=== PATIENT | female | born 1940 | race Caucasian/White ===

== ENCOUNTER 2019-04-08 02:55 | Outpatient (CLI) | payer MEDICARE, BC, SELFPAY ==
[2019-04-08 08:10] LABS: Anion Gap 9.8 mmol/L (3-11); BUN 16 mg/dL (7-18); CO2 27.2 mmol/L (21.0-32.0); CREATININE 0.66 mg/dL (0.55-1.02); Calcium 8.4 mg/dL (8.5-10.1); Chloride 103 mmol/L (98-107); Cholesterol 250 mg/dL (50-200); Glucose 96 mg/dL (70-100); HDL Cholesterol 63 mg/dL (40-60); LDL CHOLESTEROL 162 mg/dL (<100); Potassium 3.9 mmol/L (3.5-5.1); Sodium 140 mmol/L (136-145); Triglyceride 85 mg/dL (30-150)
== END 2019-04-08 03:15 ==
PROVIDERS: PCP Internal Medicine; Visit Provider Internal Medicine
DX: I10 Essential (primary) hypertension (principal)
CPT/HCPCS: 36415; 80048; 80061; 83721

== ENCOUNTER 2019-04-16 00:16 | Outpatient (CLI) | payer MEDICARE, BC, SELFPAY ==
--- NOTE | 2019-04-16 13:41 | DI.RAD_ITS ---
SYMPTOMS/DIAGNOSIS: OSTEOPENIA, M85.88 DEXA SCAN: Routine examination was performed. The lateral view of the spine shows no compression deformities. Evaluation of the left hip shows a total T score of - 2.1 and a Z score of -0.1. This is consistent with osteopenia and an increased fracture risk. This compares with a total T score of -1.9 from 2013. Evaluation of the lumbar spine shows a total T score of -2.1 and a Z score of 0.5. This is also consistent with osteopenia and an increased fracture risk. This compares with a total T score of -1.8 from 2013. IMPRESSION: Osteopenia in the lumbar spine and left hip.
== END 2019-04-16 00:36 ==
PROVIDERS: PCP Internal Medicine; Visit Provider Internal Medicine
DX: M85.88 Other specified disorders of bone density and structure, other site (principal)
CPT/HCPCS: 77080

== ENCOUNTER 2020-10-16 02:02 | Outpatient (CLI) | payer MEDICARE, BC, SELFPAY ==
--- NOTE | 2020-10-16 07:15 | DI.MAMMO_ITS ---
EXAM: MG MAMMO SCREENING CLINICAL HISTORY: screening, Z12.39 TECHNIQUE: Mammograms were interpreted according to the usual protocol including computer analysis w [employer] CAD system, tomosynthesis and C-view imaging. COMPARISON: FINDINGS: The breasts are heterogeneously dense. No dominant mass or clumped microcalcification is identified in either breast. The current examination is compared with previous examinations including March 2018 and there has been no gross interval change in appearance in comparison with the prior studies. IMPRESSION: No specific evidence of malignancy at this time. Routine screening examinations are suggested at yea rly intervals in this age group according to the ACS ACR guidelines. BI-RADS Category 1 - Negative Breast Density - Category C - Heterogeneously dense
== END 2020-10-16 02:22 ==
PROVIDERS: PCP Internal Medicine; Visit Provider Internal Medicine
DX: Z12.31 Encounter for screening mammogram for malignant neoplasm of breast (principal)
CPT/HCPCS: 77063; 77067

== ENCOUNTER 2020-10-16 04:12 | Outpatient (CLI) | payer MEDICARE, BC, SELFPAY ==
[2020-10-16 10:04] LABS: Anion Gap 6.5 mmol/L (3-11); BUN 20 mg/dL (7-18); CO2 27.5 mmol/L (21.0-32.0); CREATININE 0.61 mg/dL (0.55-1.02); Calcium 8.8 mg/dL (8.5-10.1); Calculated LDL 163 mg/dL (<100); Chloride 104 mmol/L (98-107); Cholesterol 256 mg/dL (<200); Glucose 116 mg/dL (74-106); HDL Cholesterol 71 mg/dL (40-60); Potassium 4.9 mmol/L (3.5-5.1); Sodium 138 mmol/L (136-145); Triglyceride 112 mg/dL (<150)
== END 2020-10-16 04:32 ==
PROVIDERS: PCP Internal Medicine; Visit Provider Internal Medicine
DX: I10 Essential (primary) hypertension (principal); E78.00 Pure hypercholesterolemia, unspecified
CPT/HCPCS: 36415; 80048; 80061

== ENCOUNTER 2021-03-18 02:18 | Outpatient (CLI) | payer MEDICARE, BC, SELFPAY ==
[2021-03-18 07:43] LABS: HCT 43.9 % (36.0-46.0); HGB 14.3 g/dL (11.2-15.7); MCH 31.4 pg (27.0-33.0); MCHC 32.6 % (32.0-36.0); MCV 96.5 fL (80-95); MPV 10.4 fL (8.0-11.0); Platelet Count 202 10^3/uL (130-400); RBC 4.55 10^6/uL (3.93-5.22); RDW 12.6 % (11.7-14.6); RDW-SD 45.3 fL; WBC 6.14 10^3/uL (4.4-10.8)
[2021-03-18 09:20] LABS: ALT 23 U/L (14-59); AST 18 U/L (15-37); Albumin 3.8 g/dL (3.4-5.0); Alkaline Phosphatase 85 U/L (46-116); Anion Gap 5.9 mmol/L (3-11); BUN 13 mg/dL (7-18); Bilirubin, Total 0.7 mg/dL (0.2-1.0); CO2 32.1 mmol/L (21.0-32.0); CREATININE 0.6 mg/dL (0.55-1.02); Calcium 8.6 mg/dL (8.5-10.1); Chloride 104 mmol/L (98-107); Glucose 94 mg/dL (74-106); Potassium 4.2 mmol/L (3.5-5.1); Sodium 142 mmol/L (136-145); Total Protein 7.1 g/dL (6.4-8.2)
== END 2021-03-18 02:19 | disposition home or self-care (01) ==
PROVIDERS: PCP Internal Medicine; Visit Provider Internal Medicine
DX: I10 Essential (primary) hypertension (principal); R73.01 Impaired fasting glucose; R19.5 Other fecal abnormalities
CPT/HCPCS: 36415; 80053; 85027

== ENCOUNTER 2021-04-30 06:23 | Day surgery (SDC) | payer MEDICARE, BC, SELFPAY ==
[2021-04-30 06:25] VITALS: BP 160/92; PULSE 75; RESP 16; TEMP 37; O2SAT 96
[2021-04-30] MEDS: Tropicam./Phenyleph. (1/2.5%) 5 ML BTL OS ×3 (06:42→06:49)
--- NOTE | 2021-04-30 07:06 | W.ANESPRE ---
General Info Date of Service Date Performed: 04/30/21 Height: 5 ft 1.5 in Weight: 55.3 kg Body Mass Index (BMI): 22.6 Surgical Procedure: Operation Date: 04/30/21 07:40 Proposed Procedures Side Surgeon p Cataract Extraction with IOL Implant Left Maxi Domínguez MD Meds Allergies and Home Medications Allergies Allergy/AdvReac Type Severity Reaction Status Date / Time sulfamethoxazole Allergy Unknown unknown Verified 04/30/21 06:37 [From Bactrim] trimethoprim [From Bactrim] Allergy Unknown unknown Verified 04/30/21 06:37 amlodipine AdvReac Intermediate shoulder Verified 04/30/21 06:37 pain, fatigue Home Medication Medication Instructions Recorded Glucosamine-Chondroitin 3X 1 ea PO DAILY 10/23/15 Premarin 1 g TOPICAL Weekly 10/23/15 calcium carbonate-vitamin D3 1 ea PO DAILY 10/23/15 multivitamin [Daily Multi-Vitamin] 1 ea PO DAILY 10/23/15 omega-3 fatty acids 1,000 mg 1,000 mg PO DAILY 04/09/19 capsule vit C 250 mg-vit E 90 mg-zinc 40 1 tab PO DAILY cap 04/09/19 mg-copper 1 [id number]-vsbeoj-gazvya capsule hydrochlorothiazide 12.5 mg capsule 12.5 mg PO DAILY #90 tab-cap 09/22/20 Current Visit Medications: Current Medications Generic Name Dose Route Start Last Admin Trade Name Freq PRN Reason Stop Dose Admin Acetaminophen 1,000 mg 04/30/21 06:00 Acetaminophen 500 Mg Tab PO Q4H PRN PRN Miscellaneous Medication 0 ml 04/30/21 06:00 Prednisolone 1%, Moxifloxacin 0.5%, Nepafenac 0.1% 5ml Btl OS DIRECTED ARNEL Miscellaneous Medication 0 ml 04/30/21 06:00 04/30/21 06:49 Tropicam./Phenyleph. 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 states just her tonsills were removed NOT adenoids Tobacco Smoking/Tobacco Use Status: Never Alcohol Alcohol Intake: current Alcohol intake frequency: a few times a week Alcohol type: wine Substance Use Substance use: Never Substance use type: does not use Vital Signs and Lab Results Vital Signs Most Recent Vital Signs in EMR: Most Recent Vital Signs Temp Pulse Resp BP Pulse Ox 37 C 75 16 160/92 H 96 04/30/21 06:25 04/30/21 06:25 04/30/21 06:25 04/30/21 06:25 04/30/21 06:25 Lab Results Blood Type / Crossmatch: No Data to Display Complete Blood Count: No Data to Display Complete Metabolic Panel: No Data to Display Liver Function Panel: No Data to Display Coagulation Panel: No Data to Display Cardiac Panel: No Data to Display Arterial Blood Gas: No Data to Display Venous Blood Gas: No Data to Display Pancreas Panel: No Data to Display Thyroid Panel: No Data to Display Infectious Disease: No Data to Display Blood Cultures: No Data to Display Toxicology Panel: No Data to Display Anesthesia Assessment and Plan Anesthesia History Personal History: No History of Anesthesia Complications Family History: No Family History of Anesthesia Complications Exercise Tolerance Exercise Tolerance: Metabolic Equivalents>4 Pertinent Negatives Pertinent Negatives: No Symptoms of GERD, No Major Cardiovascular Symptoms or Complaints, No Major Pulmonary Symptoms or Complaints and No History of CVA/TIA Cardiac & Pulmonary Exam Cardiac Exam: Normal S1/S2 Heart Sounds Pulmonary Exam: Clear Bilateral Breath Sounds Airway Exam Known Difficult Airway: No Mallampati Class: 3 Mouth Opening: Normal (> 3cm) Thyromental Distance: Greater than 3 cm Neck Range of Motion: Full ROM Neck Circumference: Normal Teeth Condition: Normal Dentition Airway Comments: Multiple caps and crowns ASA Classification ASA Score: ASA 2 Emergency Case?: No NPO Status NPO Status: NPO Clears >2 hours, Solids >8 hours Anesthesia Plan Resuscitation Status: Full Code Anesthesia Technique: MAC Anesthesia Airway Planned: Natural Airway Monitors Used: Standard Monitors
[2021-04-30 07:08] VITALS: BMI 22.6
[2021-04-30] MEDS: Lidocaine 1% Pres-Free 5 ML VIAL (07:28)
[2021-04-30] MEDS: Duovisc Viscoelastic System EACH 1 EACH (07:31)
[2021-04-30] MEDS: Balanced Salt Soln.-PLUS 500 ML BAG (07:31)
[2021-04-30] MEDS: Lidocaine 2% Jelly 6 ML SYR (07:32)
[2021-04-30] MEDS: Povidone-Iodine Ophth 30 ML BTL (07:32)
[2021-04-30] MEDS: Tetracaine 0.5% 4 ML BTL OS (07:33)
--- NOTE | 2021-04-30 07:50 | W.PM.DSUDISC ---
Discharge Plan Disposition Patient Disposition: HOME Condition: Good Discharge Details Reason For Visit: Cataract Attending Provider: Maxi Domínguez Primary Care Provider: Nina Herrera Home Meds and New Rx's Prescriptions: No Action PreserVision AREDS-2 [id number] qo-bibd-ge-mg capsule 1 tab PO DAILY RF: 0 omega-3 fatty acids [Fish Oil Concentrate] 1,000 mg capsule 1,000 mg PO DAILY RF: 0 hydrochlorothiazide 12.5 mg capsule 12.5 mg PO DAILY Qty: 90 RF: 3 multivitamin [Daily Multi-Vitamin] 1 EACH tablet 1 ea PO DAILY RF: 0 calcium carbonate-vitamin D3 1 EACH tablet 1 ea PO DAILY RF: 0 Premarin 45 GM cream 1 g Topical Weekly RF: 0 Glucosamine-Chondroitin 3X 1 EACH tablet 1 ea PO DAILY RF: 0 Discharge Instructions Stand Alone Forms: Post-op Block Cataract, Post-op Topical Cataract, Press Ganey (DSU) Discharge Orders Discharge Orders: Discharge Order (Routine); Ordered 04/30/21 Ordered By: Maxi Domínguez DS: Diagnosis Discharge Diagnosis (1) Posterior subcapsular age-related cataract of left eye: Status: Resolved (2) Cortical cataract of left eye: Status: Resolved (3) Nuclear sclerotic cataract of left eye: Status: Resolved
--- NOTE | 2021-04-30 07:51 | W.PM.OP ---
Date of service: 04/30/21 Time of Service: 07:51 Operative Note Operative Note DATE OF PROCEDURE: 04/30/21 PRE-OP DIAGNOSIS: Nuclear/cortical/posterior subcapsular cataract, left eye POST-OP DIAGNOSIS: same PROCEDURE: Cataract extraction using phacoemulsification with intraocular lens implant, left eye SURGEON: Maxi Domínguez ANESTHESIA TYPE: Local By Surgeon and MAC Refer to Anesthesia Record PATHOLOGY: none sent COMPLICATIONS: None Patient was transported to: same day Patient's condition: stable Implants: [employer] / [employer] Tecnis [id number] Indications: Progressive decreased vision due to cataract, left eye Procedure Description: CATARACT SURGERY OPERATIVE REPORT PREOPERATIVE DIAGNOSIS: Nuclear/cortical/posterior subcapsular cataract, left eye POSTOPERATIVE DIAGNOSIS: Same OPERATION: Cataract extraction using phacoemulsification with posterior chamber intraocular lens implant, left eye. IOL: IOL Aircraft Maintenance Manager/Model: [employer] / JAIR Tecnis [id number] IOL Power: + 22.0 diopters IOL Serial Number: [id number] Optic Diameter: 6.0mm Haptic/Overall Diameter: 13.0mm PHACO INFO: Jayden Phantomurion Vision System with OZil and Active [employer]uidics Cumulative Dispersed Energy (CDE): 8.73 seconds SURGEON: Maxi Domínguez MD, FLORENCIO ANESTHESIA: Monitored Anesthesia Care (MAC), with local sub-tenon's anesthetic infiltration COMPLICATIONS: None SPECIMENS: None INDICATIONS FOR PROCEDURE: The patient is a 80-year-old lady with history of diminished visual acuity in her left eye. She is noted to have a significant nuclear/cortical/posterior subcapsular cataract. The option of cataract surgery was offered to the patient and she wished to proceed. PROCEDURE: The correct surgical eye was identified and marked as the left eye and the pupil was dilated in the preoperative area using mydriatics and cycloplegics. The dilated pupil size was 7.0 mm. Oral sedation was administered in the form of an Imprimis MKO Melt (midazolam 3mg/ketamine 25mg/ondansetron 2mg). The patient was brought to the operating room where cardiopulmonary monitoring was instituted and surgical time-out was performed, confirming the correct operative eye and IOL power. Topical anesthesia was administered and ophthalmic povidone-iodine 5% was instilled into the conjunctival fornices. Lidocaine gel was applied to the cornea and the xavier-ocular area was prepped with Betadine 10% solution and draped in the usual sterile fashion for intraocular surgery, including an aperture drape. A Tegaderm transparent film dressing was cut in half and used to cover the lashes and lid margins. Care was taken to sequester the lashes and lid margins under the Tegaderm dressing. A lid speculum was placed between the lids of the operative eye and the Christophe-Rosemary operating microscope was maneuvered into position. Randy scissors were then used to make a conjunctival buttonhole approximately 6mm posterior to the limbus in the inferonasal quadrant. Blunt dissection was carried out to expose bare sclera, and a blunt-tipped sub-tenon?s anesthesia cannula was introduced and passed posteriorly along the globe where non-preserved plain lidocaine was injected into posterior sub-Tenon?s space. A sideport knife was used to make a paracentesis port superior/superiortemporally. Intraocular phenylephrine/lidocaine was injected into the anterior chamber. The anterior chamber was then filled with viscoelastic. A 2.4mm keratome knife was used to create a half-thickness groove at the limbus and then to construct a three-plane near-clear corneal tunnel extending 2.0mm into clear cornea in the temporal position. . A flap was raised on the anterior capsule and capsulorhexis forceps were used to complete a continuous curvilinear capsulorhexis of 5.5 mm. Balanced salt solution was then used to perform cortical cleaving hydrodissection and nuclear hydrodelineation until the lens could be freely rotated within the capsular bag. The lens nucleus was then disassembled and removed within the capsular bag and iris plane using phacoemulsification. Residual cortical material was removed using the 45-degree angled silicone I/A tip with 0.3mm port. The posterior capsule was carefully polished to remove as much residual lens epithelial cells as safely possible. The capsular bag was then inflated and the anterior chamber deepened with viscoelastic. The lens implant described above was inserted into the capsular bag using the JAIR [place] Injector. A Kuglen hook was used to dial the IOL into position. Residual viscoelastic was then removed first from posterior to the IOL, then from the anterior chamber using the I/A handpiece. The lens implant was noted to center nicely within the capsular bag. The incisions were stromally hydrated, and the anterior chamber was reformed using BSS. Then 0.5cc of moxifloxacin 1.0mg/ml were injected into the capsular bag and anterior chamber. The incisions were checked with a Weck spear and found to be secure. Several drops of ophthalmic povidone-iodine 5% were then applied to the eye followed by two drops of Imprimis combination prednisolone/moxifloxacin/nepafenac solution. The drapes were removed and a clear plastic protective eye shield was placed over the eye. The patient was then returned to Same Day Surgery in stable condition.
--- NOTE | 2021-04-30 07:54 | W.ANESPOSTOP ---
Postoperative Evaluation Date, Time and Location Date Performed: 04/30/21 Time Performed: 07:54 Patient Location: Day Surgery Unit Vital Signs Most Recent Imported Vital Signs: Most Recent Vital Signs Temp Pulse Resp BP Pulse Ox 37 C 75 16 160/92 H 96 04/30/21 06:25 04/30/21 06:25 04/30/21 06:25 04/30/21 06:25 04/30/21 06:25 Assessment Mental Status: Awake (Alert & Oriented to Patient Baseline) Airway and Respiratory Function: Patent airway with normal (patient baseline) respiratory exam Cardiovascular Function: Hemodynamically Stable Hydration Status: Adequately Hydrated Nausea & Vomiting: No Nausea or Vomiting Pain: Pt. Denies Any Pain Peripheral Nerve Block: Patient did not receive a nerve block
[2021-04-30 08:09] VITALS: BP 130/79; PULSE 79; RESP 16; TEMP 36.4; O2SAT 97
== END 2021-04-30 08:25 | disposition home or self-care (01) ==
PROVIDERS: PCP Internal Medicine; Visit Provider Ophthalmology
PROC: (CPT 66984; principal; 2021-04-30 07:30)
DX: H25.812 Combined forms of age-related cataract, left eye (principal); I10 Essential (primary) hypertension
CPT/HCPCS: 66984; V2632

== ENCOUNTER 2021-05-14 06:23 | Day surgery (SDC) | payer MEDICARE, BC, SELFPAY ==
[2021-05-14] MEDS: Tropicam./Phenyleph. (1/2.5%) 5 ML BTL OD ×3 (06:44→06:54)
[2021-05-14 06:47] VITALS: BP 145/86; PULSE 72; RESP 16; TEMP 36.4; O2SAT 96
--- NOTE | 2021-05-14 07:13 | W.ANESPRE ---
General Info Date of Service Date Performed: 05/14/21 Height: 5 ft 1.5 in Weight: 55.2 kg Body Mass Index (BMI): 22.6 Surgical Procedure: Operation Date: 05/14/21 07:40 Proposed Procedures Side Surgeon p Cataract Extraction with IOL Implant Right Maxi Domínguez MD Meds Allergies and Home Medications Allergies Allergy/AdvReac Type Severity Reaction Status Date / Time sulfamethoxazole Allergy Unknown unknown Verified 05/14/21 06:35 [From Bactrim] trimethoprim [From Bactrim] Allergy Unknown unknown Verified 05/14/21 06:35 amlodipine AdvReac Intermediate shoulder Verified 05/14/21 06:35 pain, fatigue Home Medication Medication Instructions Recorded Glucosamine-Chondroitin 3X 1 ea PO DAILY 10/23/15 Premarin 1 g TOPICAL Weekly 10/23/15 calcium carbonate-vitamin D3 1 ea PO DAILY 10/23/15 multivitamin [Daily Multi-Vitamin] 1 ea PO DAILY 10/23/15 omega-3 fatty acids 1,000 mg 1,000 mg PO DAILY 04/09/19 capsule vit C 250 mg-vit E 90 mg-zinc 40 1 tab PO DAILY cap 04/09/19 mg-copper 1 qn-ndlxkz-bznyyk capsule hydrochlorothiazide 12.5 mg capsule 12.5 mg PO DAILY #90 tab-cap 09/22/20 Current Visit Medications: Current Medications Generic Name Dose Route Start Last Admin Trade Name Freq PRN Reason Stop Dose Admin Acetaminophen 1,000 mg 05/14/21 06:00 Acetaminophen 500 Mg Tab PO Q4H PRN PRN Miscellaneous Medication 0 ml 05/14/21 06:00 Prednisolone 1%, Moxifloxacin 0.5%, Nepafenac 0.1% 5ml Btl OD DIRECTED [facility] Miscellaneous Medication 0 ml 05/14/21 06:00 05/14/21 06:54 Tropicam./Phenyleph. 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 states just her tonsills were removed NOT adenoids Tobacco Smoking/Tobacco Use Status: Never Alcohol Alcohol Intake: current Alcohol intake frequency: a few times a week Alcohol type: wine Substance Use Substance use: Never Substance use type: does not use Vital Signs and Lab Results Vital Signs Most Recent Vital Signs in EMR: Most Recent Vital Signs Temp Pulse Resp BP Pulse Ox 36.4 C L 72 16 145/86 H 96 05/14/21 06:47 05/14/21 06:47 05/14/21 06:47 05/14/21 06:47 05/14/21 06:47 Lab Results Blood Type / Crossmatch: No Data to Display Complete Blood Count: No Data to Display Complete Metabolic Panel: No Data to Display Liver Function Panel: No Data to Display Coagulation Panel: No Data to Display Cardiac Panel: No Data to Display Arterial Blood Gas: No Data to Display Venous Blood Gas: No Data to Display Pancreas Panel: No Data to Display Thyroid Panel: No Data to Display Infectious Disease: No Data to Display Blood Cultures: No Data to Display Toxicology Panel: No Data to Display Anesthesia Assessment and Plan Anesthesia History Personal History: No History of Anesthesia Complications Family History: No Family History of Anesthesia Complications Exercise Tolerance Exercise Tolerance: Metabolic Equivalents>4 Cardiac & Pulmonary Exam Cardiac Exam: Normal S1/S2 Heart Sounds Pulmonary Exam: Clear Bilateral Breath Sounds Airway Exam Known Difficult Airway: No Mallampati Class: 3 Mouth Opening: Normal (> 3cm) Thyromental Distance: Greater than 3 cm Neck Range of Motion: Full ROM Neck Circumference: Normal Teeth Condition: Normal Dentition Airway Comments: Multiple caps and crowns ASA Classification ASA Score: ASA 2 Emergency Case?: No NPO Status NPO Status: NPO Clears >2 hours, Solids >8 hours Anesthesia Plan Resuscitation Status: Full Code Anesthesia Technique: MAC Anesthesia Airway Planned: Natural Airway Monitors Used: Standard Monitors
[2021-05-14 07:15] VITALS: BMI 22.6
[2021-05-14] MEDS: Povidone-Iodine Ophth 30 ML BTL (07:28)
[2021-05-14] MEDS: Tetracaine 0.5% 4 ML BTL OD (07:28)
[2021-05-14] MEDS: Lidocaine 2% Jelly 6 ML SYR (07:28)
[2021-05-14] MEDS: Balanced Salt Soln.-PLUS 500 ML BAG (07:30)
[2021-05-14] MEDS: Duovisc Viscoelastic System EACH 1 EACH (07:45)
[2021-05-14] MEDS: Lidocaine 1% Pres-Free 5 ML VIAL (07:48)
--- NOTE | 2021-05-14 07:59 | W.PM.DSUDISC ---
Discharge Plan Disposition Patient Disposition: HOME Condition: Good Discharge Details Reason For Visit: Cataract Attending Provider: Maxi Domínguez Primary Care Provider: Nina Herrera Home Meds and New Rx's Prescriptions: No Action PreserVision AREDS-2 [id number] bv-hmlt-eh-mg capsule 1 tab PO DAILY RF: 0 omega-3 fatty acids [Fish Oil Concentrate] 1,000 mg capsule 1,000 mg PO DAILY RF: 0 hydrochlorothiazide 12.5 mg capsule 12.5 mg PO DAILY Qty: 90 RF: 3 multivitamin [Daily Multi-Vitamin] 1 EACH tablet 1 ea PO DAILY RF: 0 calcium carbonate-vitamin D3 1 EACH tablet 1 ea PO DAILY RF: 0 Premarin 45 GM cream 1 g Topical Weekly RF: 0 Glucosamine-Chondroitin 3X 1 EACH tablet 1 ea PO DAILY RF: 0 Discharge Instructions Stand Alone Forms: Post-op Topical Cataract, Jake Thompson (DSU) Discharge Orders Discharge Orders: Discharge Order (Routine); Ordered 05/14/21 Ordered By: Maxi Domínguez DS: Diagnosis Discharge Diagnosis (1) Posterior subcapsular age-related cataract, right eye: Status: Resolved (2) Nuclear sclerotic cataract of right eye: Status: Resolved (3) Cortical cataract of right eye: Status: Resolved
--- NOTE | 2021-05-14 08:00 | W.PM.OP ---
Date of service: 05/14/21 Time of Service: 08:00 Operative Note Operative Note DATE OF PROCEDURE: 05/14/21 PRE-OP DIAGNOSIS: Nuclear/cortical/posterior subcapsular cataract, right eye POST-OP DIAGNOSIS: same PROCEDURE: Cataract extraction using phacoemulsification with intraocular lens implant, right eye SURGEON: Maxi Domínguez ANESTHESIA TYPE: Local By Surgeon and MAC Refer to Anesthesia Record ESTIMATED BLOOD LOSS: 0 PATHOLOGY: none sent COMPLICATIONS: None Patient was transported to: same day Patient's condition: stable Implants: [employer] / [employer] Tecnis [id number] intraocular lens Indications: Progressive decreased vision due to cataract, right eye Procedure Description: CATARACT SURGERY OPERATIVE REPORT PREOPERATIVE DIAGNOSIS: Nuclear/cortical/posterior subcapsular cataract, right eye POSTOPERATIVE DIAGNOSIS: Same OPERATION: Cataract extraction using phacoemulsification with posterior chamber intraocular lens implant, right eye. IOL: IOL Campaign Assistant/Model: [employer] / JAIR Tecnis [id number] IOL Power: + 21.5 diopters IOL Serial Number: [id number] Optic Diameter: 6.0mm Haptic/Overall Diameter: 13.0mm PHACO INFO: Jayden Hawthorne Labsurion Vision System with OZil and Active Fluidics Cumulative Dispersed Energy (CDE): 6.39 seconds SURGEON: Maxi Domínguez MD, FLORENCIO ANESTHESIA: Monitored Anesthesia Care (MAC), with local sub-tenon's anesthetic infiltration COMPLICATIONS: None SPECIMENS: None INDICATIONS FOR PROCEDURE: The patient is an 80-year-old lady with history of diminished visual acuity in both eyes secondary to the development of bilateral cataract. She has already undergone cataract surgery in her left eye and is doing well postoperatively. She now presents for cataract surgery in the right eye. PROCEDURE: The correct surgical eye was identified and marked as the right eye and the pupil was dilated in the preoperative area using mydriatics and cycloplegics. The dilated pupil size was 8.0 mm. She elected to proceed without oral sedation. The patient was brought to the operating room where cardiopulmonary monitoring was instituted and surgical time-out was performed, confirming the correct operative eye and IOL power. Topical anesthesia was administered and ophthalmic povidone-iodine 5% was instilled into the conjunctival fornices. Lidocaine gel was applied to the cornea and the xavier-ocular area was prepped with Betadine 10% solution and draped in the usual sterile fashion for intraocular surgery, including an aperture drape. A Tegaderm transparent film dressing was cut in half and used to cover the lashes and lid margins. Care was taken to sequester the lashes and lid margins under the Tegaderm dressing. A lid speculum was placed between the lids of the operative eye and the Christophe-Rosemary operating microscope was maneuvered into position. Randy scissors were then used to make a conjunctival buttonhole approximately 6mm posterior to the limbus in the inferonasal quadrant. Blunt dissection was carried out to expose bare sclera, and a blunt-tipped sub-tenon?s anesthesia cannula was introduced and passed posteriorly along the globe where non-preserved plain lidocaine was injected into posterior sub-Tenon?s space. A sideport knife was used to make a paracentesis port inferiortemporally. Intraocular phenylephrine/lidocaine was injected into the anterior chamber. The anterior chamber was then filled with viscoelastic. A 2.4mm keratome knife was used to create a half-thickness groove at the limbus and then to construct a three-plane near-clear corneal tunnel extending 2.0mm into clear cornea in the superiortemporal position. . A flap was raised on the anterior capsule and capsulorhexis forceps were used to complete a continuous curvilinear capsulorhexis of 5.5 mm. Balanced salt solution was then used to perform cortical cleaving hydrodissection and nuclear hydrodelineation until the lens could be freely rotated within the capsular bag. The lens nucleus was then disassembled and removed within the capsular bag and iris plane using phacoemulsification. Residual cortical material was removed using the I/A handpiece. The posterior capsule was carefully polished to remove as much residual lens epithelial cells as safely possible. The capsular bag was then inflated and the anterior chamber deepened with viscoelastic. The lens implant described above was inserted into the capsular bag using the JAIR [place] Injector. A Kuglen hook was used to dial the IOL into position. Residual viscoelastic was then removed first from posterior to the IOL, then from the anterior chamber using the I/A handpiece. The lens implant was noted to center nicely within the capsular bag. The incisions were stromally hydrated, and the anterior chamber was reformed using BSS. Then 0.5cc of moxifloxacin 1.0mg/ml were injected into the capsular bag and anterior chamber. The incisions were checked with a Weck spear and found to be secure. Several drops of ophthalmic povidone-iodine 5% were then applied to the eye followed by two drops of Imprimis combination prednisolone/moxifloxacin/nepafenac solution. The drapes were removed and a clear plastic protective eye shield was placed over the eye. The patient was then returned to Same Day Surgery in stable condition.
[2021-05-14 08:05] VITALS: BP 151/90; PULSE 64; RESP 16; TEMP 36.4; O2SAT 100
--- NOTE | 2021-05-14 08:10 | W.ANESPOSTOP ---
Postoperative Evaluation Date, Time and Location Date Performed: 05/14/21 Time Performed: 08:11 Patient Location: Day Surgery Unit Vital Signs Most Recent Imported Vital Signs: Most Recent Vital Signs Temp Pulse Resp BP Pulse Ox 36.4 C L 64 16 151/90 H 100 05/14/21 08:05 05/14/21 08:05 05/14/21 08:05 05/14/21 08:05 05/14/21 08:05 Pain Score Most Recent Pain Score: Most Recent Pain Score Pain Level 0 05/14/21 08:05 Assessment Mental Status: Awake (Alert & Oriented to Patient Baseline) Airway and Respiratory Function: Patent airway with normal (patient baseline) respiratory exam Cardiovascular Function: Hemodynamically Stable Hydration Status: Adequately Hydrated Nausea & Vomiting: No Nausea or Vomiting Pain: Pt. Denies Any Pain Peripheral Nerve Block: Regional nerve block not resolved at time of post operative discharge
== END 2021-05-14 08:25 | disposition home or self-care (01) ==
PROVIDERS: PCP Internal Medicine; Visit Provider Ophthalmology
PROC: (CPT 66984; principal; 2021-05-14 07:30)
DX: H25.041 Posterior subcapsular polar age-related cataract, right eye (principal)
CPT/HCPCS: 66984; V2632

== ENCOUNTER → 2021-06-17 10:30 | Outpatient (BNVA) | payer MEDICARE, BC, SELFPAY | PROVIDERS: PCP Internal Medicine; Referring Provider Internal Medicine; Visit Provider Surgery | DX: R19.5 Other fecal abnormalities (principal); Z86.010 Personal history of colon polyps; I10 Essential (primary) hypertension | CPT/HCPCS: 99202; 99213 ==

== ENCOUNTER 2021-07-09 08:06 | Day surgery (SDC) | payer MEDICARE, BC, SELFPAY ==
--- NOTE | 2021-07-08 15:00 | PDOC.DSDIS_ITS ---
Discharge Plan Disposition Patient Disposition: HOME Condition: Good Discharge Details Reason For Visit: colo scope Attending Provider: Krysta Madrigal Primary Care Provider: Nina Herrera Home Meds and New Rx's Prescriptions: Continued PreserVision AREDS-2 [id number] mu-xqrx-dj-mg capsule 1 tab PO DAILY RF: 0 omega-3 fatty acids [Fish Oil Concentrate] 1,000 mg capsule 1,000 mg PO DAILY RF: 0 hydrochlorothiazide 12.5 mg capsule 12.5 mg PO DAILY Qty: 90 RF: 3 multivitamin [Daily Multi-Vitamin] 1 EACH tablet 1 ea PO DAILY RF: 0 calcium carbonate-vitamin D3 1 EACH tablet 1 ea PO DAILY RF: 0 Premarin 45 GM cream 1 g Topical Weekly RF: 0 Glucosamine-Chondroitin 3X 1 EACH tablet 1 ea PO DAILY RF: 0 Discontinued polyethylene glycol 3350 17 gram/dose powder 238 g PO ONCE Qty: 238 RF: 0 bisacodyl [Dulcolax (bisacodyl)] 5 mg tablet,delayed release (DR/EC) 5 mg PO ONCE Qty: 4 RF: 0 Discharge Instructions Additional Instructions: DSU Colonoscopy Post- Op Instructions Instructions for Everyone who is given Anesthesia: For your safety, please do the following for the next twenty-four (24) hours: *Do Not operate a motor vehicle (car, truck, motorcycle, etc.) *Do Not drink alcoholic beverages or use any recreational drugs for the first 24 hours or while taking pain medications. The medications in your body may have a reaction that can be dangerous. *Do Not make any important decisions or sign any important papers. Findings: Diverticula throughout the entire colon. Make sure you are following a high-fiber diet and moving your bowels on a regular basis and not straining to go to the bathroom. Follow up: Does not need to repeat colonscopy, unless having unexplained weight loss, rectal bleeding, or changes in bowel habit. 1. No lifting over 20 pounds or strenuous activity for the first 24 hours after your procedure. After 24 hours there are no restrictions on your activity but you may feel fatigued for a few days. 2. After you arrive home you may have a light meal and return to your normal diet as you can tolerate it without feeling sick to your stomach. 3. You may have a bloated, gaseous feeling in your belly (abdomen) after a colonoscopy. Passing gas and belching will help. Walking or lying down on your left side with your knees flexed may relieve the discomfort. Call the office at [phone] (Office) or [phone] (Hospital) right away if you notice any of the following: a.Vomiting of blood or ?coffee ground stools?. b.Rectal bleeding 1Tbsp, blood clots or continuous bleeding. c.Severe belly (abdominal) pain. d.A hard distended belly (abdomen) and an inability to pass gas. 4. Please don?t expect to have a normal BM (bowel movement) for 2-3 days after your procedure. 5. If there are questions regarding the findings of your procedure, please contact your doctor 6. If you are unable to contact your doctor with a problem, contact the hospital at [phone]. 7. Continue all your regular medications unless directed otherwise. I understand the above instructions and have no questions. Signature of Patient or Adult Escort Name of Responsible Adult Escort Signature of Nurse Date/Time Activity:: see above Diet:: see above Discharge Orders Discharge Orders: Discharge Order (Routine); Ordered 07/08/21 Ordered By: Krysta Madrigal DS: Diagnosis Discharge Diagnosis (1) Diverticulosis: Status: Acute
--- NOTE | 2021-07-08 15:00 | W.COLOREPORT ---
Date of service: 07/09/21 Time of Service: 09:45 Colonoscopy Report Date of procedure: 07/09/21 Pre-op diagnosis general: +cologuard Post-op diagnosis procedure note: other (pandiverticulitis ) Anesthesia Type: General:No Airway and General LMA/ETT Prep: Miralax/Dulcolax Retraction Time: 12 Procedure Description: After informed consent was obtained the patient was taken to the procedure room and placed in a left decubitous position. Monitors were applied and a time out was done. The patients name, date of , procedure, allergies to medications and metal in their body was reviewed. The patient was then sedated. Once sedated and comfortable a rectal exam was done. External exam was normal. Internal exam revealed a normal sphincter tone and no palpable masses. The scope was then introduced and retrofelexed. Grade I internal hemorrhoids were identified. The scope was then advanced to the cecum w/out difficulty. The TI and appendiceal orifice were identified. The prep was good. The scope was then slowly retracted over 12minutes back into the rectum. She does have moderate diverticula that extend to the cecum. There is no signs of any bleeding or infection. I did do two runs of the entire colon, and I see no polyps. The scope was removed and the patient was woken up and taken back to Same day surgery in stable condition. The patient tolerated the procedure well and there were no immediate complications. Follow up: The patient does not require any further CE's, unless they develop changes in bowel habits or other new gastrointestinal complaints.
--- NOTE | 2021-07-08 19:10 | ANES.PREOP_ITS ---
General Info Date of Service Date Performed: 07/09/21 Height: 5 ft 1.5 in Weight: 56.245 kg Body Mass Index (BMI): 23.0 Surgical Procedure: Operation Date: 07/09/21 09:05 Proposed Procedures Side Surgeon karlie Madrigal, Meds Allergies and Home Medications Allergies Allergy/AdvReac Type Severity Reaction Status Date / Time sulfamethoxazole Allergy Unknown unknown Verified 07/09/21 08:23 [From Bactrim] trimethoprim [From Bactrim] Allergy Unknown unknown Verified 07/09/21 08:23 amlodipine AdvReac Intermediate shoulder Verified 07/09/21 08:23 pain, fatigue Home Medication Medication Instructions Recorded Glucosamine-Chondroitin 3X 1 ea PO DAILY 10/23/15 Premarin 1 g TOPICAL Weekly 10/23/15 calcium carbonate-vitamin D3 1 ea PO DAILY 10/23/15 multivitamin [Daily Multi-Vitamin] 1 ea PO DAILY 10/23/15 omega-3 fatty acids 1,000 mg 1,000 mg PO DAILY 04/09/19 capsule vit C 250 mg-vit E 90 mg-zinc 40 1 tab PO DAILY cap 04/09/19 mg-copper 1 qk-quebtk-celpmy capsule hydrochlorothiazide 12.5 mg capsule 12.5 mg PO DAILY #90 tab-cap 09/22/20 bisacodyl 5 mg tablet,delayed 5 mg PO ONCE #4 tab 06/17/21 release polyethylene glycol 3350 17 238 g PO ONCE #238 g 06/17/21 gram/dose oral powder Current Visit Medications: Current Medications Generic Name Dose Route Start Last Admin Trade Name Freq PRN Reason Stop Dose Admin Hyoscyamine Sulfate 0.125 mg 07/08/21 15:00 Hyoscyamine 0.125 Mg Sl/Oral/Chew SL DIRECTED PRN Ringer's Solution 1,000 mls @ 80 mls/hr 07/09/21 06:00 IV 08/07/21 23:59 INF[facility]ION [facility] IV Miscellaneous Supplies 1 each 07/09/21 06:00 Iv Access IV 08/07/21 23:59 DIRECTED ARNEL Ondansetron HCl 4 mg 07/08/21 15:00 Ondansetron 4 Mg/2 Ml Vial IVP Q4H PRN PRN Nausea / Vomiting Sodium Chloride 0 ml 07/09/21 06:00 Normal Saline Flush 10 Ml Syr IV 08/07/21 23:59 PRN PRN Sodium Chloride 0 ml 07/09/21 06:00 Normal Saline 10 Ml Vial IJ 08/07/21 23:59 DIRECTED PRN Sterile Water 0 ml 07/09/21 06:00 Water,Injection,Sterile 10 Ml Vial IJ 08/07/21 23:59 DIRECTED PRN PFSH Active Problems Active Problems: Problem Status Onset Code Positive colorectal cancer screening using Cologuard test R19.5 Adenomatous polyps D36.9 Posterior subcapsular age-related cataract, right eye H25.041 Nuclear sclerotic cataract of right eye H25.11 Cortical cataract of right eye H26.9 Uterine fibroid D25.9 Posterior subcapsular age-related cataract of left eye H25.042 Cortical cataract of left eye H26.9 Nuclear sclerotic cataract of left eye H25.12 Diverticulosis 09/01/16 K57.90 Essential hypertension 12/01/15 I10 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 states just her tonsills were removed NOT adenoids Tobacco Smoking/Tobacco Use Status: Never Alcohol Alcohol Intake: current Alcohol intake frequency: a few times a week Alcohol type: wine Substance Use Substance use: Never Substance use type: does not use Vital Signs and Lab Results Lab Results Blood Type / Crossmatch: No Data to Display Complete Blood Count: No Data to Display Complete Metabolic Panel: No Data to Display Liver Function Panel: No Data to Display Coagulation Panel: No Data to Display Cardiac Panel: No Data to Display Arterial Blood Gas: No Data to Display Venous Blood Gas: No Data to Display Pancreas Panel: No Data to Display Thyroid Panel: No Data to Display Infectious Disease: No Data to Display Blood Cultures: No Data to Display Toxicology Panel: No Data to Display Anesthesia Assessment and Plan Anesthesia History Personal History: No History of Anesthesia Complications Family History: No Family History of Anesthesia Complications Exercise Tolerance Exercise Tolerance: Metabolic Equivalents>4 Cardiac & Pulmonary Exam Cardiac Exam: Normal S1/S2 Heart Sounds Pulmonary Exam: Clear Bilateral Breath Sounds Airway Exam Known Difficult Airway: No Mallampati Class: 3 Mouth Opening: Normal (> 3cm) Thyromental Distance: Greater than 3 cm Neck Range of Motion: Full ROM Neck Circumference: Normal Teeth Condition: Normal Dentition Airway Comments: Multiple caps and crowns ASA Classification ASA Score: ASA 2 Emergency Case?: No NPO Status NPO Status: NPO Clears >2 hours, Solids >8 hours Anesthesia Plan Resuscitation Status: Full Code Anesthesia Technique: General Anesthesia Airway Planned: Natural Airway Monitors Used: Standard Monitors Preoperative Comments:: 80 yo female for colonoscopy for adenomatous polyps, positive cologuard. PMHX HTN
[2021-07-09 08:13] VITALS: PULSE 76; RESP 16; TEMP 36.4; O2SAT 98
[2021-07-09] MEDS: Lactated Ringers 1,000 ML 80 ML IV (08:39)
[2021-07-09 08:51] VITALS: BMI 23.0
--- NOTE | 2021-07-09 09:29 | W.ANESPOSTOP ---
Postoperative Evaluation Date, Time and Location Date Performed: 07/09/21 Time Performed: 09:30 Patient Location: Day Surgery Unit Vital Signs Most Recent Imported Vital Signs: Most Recent Vital Signs Temp Pulse Resp Pulse Ox 36.4 C L 76 16 98 07/09/21 08:13 07/09/21 08:13 07/09/21 08:13 07/09/21 08:13 Most Recent Manually Entered Vital Signs: Adult Blood Pressure: 87/59 Heart Rate: 69 Respirations: 20 Oxygen Saturation (%): 98 Temperature (C): 36.2 C Pain Score (0-10 Scale): 0 Pain Score Most Recent Pain Score: Most Recent Pain Score Pain Level 0 07/09/21 08:13 Assessment Mental Status: Awake (Alert & Oriented to Patient Baseline) Airway and Respiratory Function: Patent airway with normal (patient baseline) respiratory exam Cardiovascular Function: Hemodynamically Stable Hydration Status: Adequately Hydrated Nausea & Vomiting: No Nausea or Vomiting Pain: Pt. Denies Any Pain Peripheral Nerve Block: Patient did not receive a nerve block
[2021-07-09 09:30] VITALS: BP 87/59; PULSE 69; RESP 20; TEMPC 36.2; O2SAT 98
[2021-07-09 09:31] VITALS: BP 89/62; PULSE 68; RESP 20; TEMP 36.2; O2SAT 98
[2021-07-09 10:01] VITALS: BP 134/85; PULSE 62; RESP 18; TEMP 36.1; O2SAT 98
== END 2021-07-09 10:26 | disposition home or self-care (01) ==
PROVIDERS: PCP Internal Medicine; Visit Provider Surgery
PROC: 0DJD8ZZ Inspection of Lower Intestinal Tract, Via Natural or Artificial Opening Endoscopic (ICD-10-PCS; CPT 45378; principal; 2021-07-09 09:00)
DX: Z12.11 Encounter for screening for malignant neoplasm of colon (principal); K57.30 Diverticulosis of large intestine without perforation or abscess without bleeding; Z86.010 Personal history of colon polyps; I10 Essential (primary) hypertension; R73.01 Impaired fasting glucose
CPT/HCPCS: G0105; J2001

== ENCOUNTER 2022-03-04 02:12 | Outpatient (CLI) | payer MEDICARE, SELFPAY ==
[2022-03-04 08:36] LABS: Anion Gap 8.3 mmol/L (3-11); BUN 17 mg/dL (7-18); CO2 27.7 mmol/L (21.0-32.0); CREATININE 0.6 mg/dL (0.55-1.02); Calcium 8.5 mg/dL (8.5-10.1); Calculated LDL 174 mg/dL (<100); Chloride 104 mmol/L (98-107); Cholesterol 260 mg/dL (<200); Glucose 97 mg/dL (74-106); HDL Cholesterol 68 mg/dL (40-60); Potassium 3.8 mmol/L (3.5-5.1); Sodium 140 mmol/L (136-145); Triglyceride 94 mg/dL (<150)
== END 2022-03-04 02:13 | disposition home or self-care (01) ==
LOC: LBO 02:13
PROVIDERS: PCP Internal Medicine; Visit Provider Internal Medicine
DX: I10 Essential (primary) hypertension (principal); E78.00 Pure hypercholesterolemia, unspecified
CPT/HCPCS: 36415; 80048; 80061

== ENCOUNTER 2022-03-11 12:39 | Outpatient (REF) | payer MEDICARE, SELFPAY ==
[2022-03-11 11:18] LABS: C Diff PCR Negative (Negative)
[2022-03-12 10:57] LABS: Campylobacter PCR Negative (Negative); Salmonella PCR Negative (Negative); Shiga Toxin PCR Negative (Negative); Shigella/Enteroinvasive Ecoli Negative (Negative)
== END 2022-03-11 12:40 | disposition home or self-care (01) ==
LOC: LBN 12:39
PROVIDERS: PCP Internal Medicine; Visit Provider Nurse Practitioner
DX: R19.7 Diarrhea, unspecified (principal)
CPT/HCPCS: 87493; 87505; 87177

== ENCOUNTER → 2022-10-27 00:51 | Outpatient (CLI) | payer MEDICARE, SELFPAY ==
--- NOTE | 2022-10-27 07:00 | DI.RAD_ITS ---
Exam(s) XR HIP LT COMPLETE AP PELVIS XR SACROILIAC JOINTS XR SACRUM EXAM: XR HIP LT COMPLETE AP PELVIS, sacrum and sacroiliac joints CLINICAL HISTORY: worsening pain left hip/sacrum,lumbago with sciatica,m54.42,m16.12, oa lt. TECHNIQUE: 2D digital imaging was performed of the left hip. Eight views were obtained. AP pelvis and lateral left hip views were obtained. COMPARISON: CR RIGHT HIP COMPLETE from 10/11/2013 FINDINGS: BONES: No acute fracture is present. No bony destructive lesion is seen. The bones are osteopenic. JOINTS: No dislocation present. There are marked degenerative changes of the hips bilaterally with si gnificant loss of the joint space, subchondral sclerosis and periarticular spurring. The degenerativ e changes in the hips have significantly progressed since 10/11/2013. The sacroiliac joints appear w ell maintained with mild degenerative changes. No ankylosis or erosions are seen. Degenerative julien ges are seen in the lower lumbar spine particularly at the L5-S1 disc space. SOFT TISSUE: Atherosclerosis is present. IMPRESSION: 1. Marked degenerative changes of the hips, left greater than right. 2. Degenerative changes seen in the lower lumbar spine. 3. Osteopenia. DATA REPOSITORY: RADIATION DOSE DELIVERED:
== END ==
PROVIDERS: PCP Student in an Organized Health Care Education/Training Program; Visit Provider Student in an Organized Health Care Education/Training Program
DX: G57.02 Lesion of sciatic nerve, left lower limb (principal); M16.12 Unilateral primary osteoarthritis, left hip; M54.42 Lumbago with sciatica, left side; M85.89 Other specified disorders of bone density and structure, multiple sites; R19.5 Other fecal abnormalities
CPT/HCPCS: 72202; 72220; 73502

== ENCOUNTER 2023-02-07 01:19 | Outpatient (CLI) | payer MEDICARE, SELFPAY ==
--- NOTE | 2023-02-07 07:30 | DI.MAMMO_ITS ---
Exam(s) MAMMO SCREENING EXAM: MAMMO SCREENING CLINICAL HISTORY: screening,z12.39 TECHNIQUE: Bilateral full field digital CC and MLO mammographic images were obtained with 3D tomosyn thesis and utilizing computer aided detection (CAD). COMPARISON: Available for comparison. FINDINGS: Masses/Architectural Distortion: None seen. Microcalcifications: No suspicious pleomorphic-type are seen. Skin Thickening/Nipple Retraction: None. IMPRESSION: 1. No significant interval change with no specific features of malignancy noted. 2. Unless there is more urgent need, screening mammography is recommended, as per [place] guidelines. BI-RADS Category 1 - Negative Breast Density - Category B - Scattered areas of fibroglandular density Breast density category C or D implies that the patient has dense breast tissue. Dense breast tissue is very common and is not abnormal but dense breast tissue can make it harder to find cancer on a ma mmogram. Also, dense breast tissue may increase their breast cancer risk. This information about the result of the mammogram report was provided to the patient to raise their awareness. Use this report when you speak with the patient about their risks for breast cancer, which includes their family hist ory. At that time, you may recommend for more screening tests (Ultrasound or MRI) as they might be us eful based on their risk. A negative radiographic report should not delay biopsy if a dominant or clinically suspicious mass is present. Up to ten percent of cancers are not identified on mammography. A negative report may reinforce clinical impression. Adenosis and dense breasts may obscure an underlying neoplasm. False positive reports average 6 to 10%. Patient will receive a letter notifying them of these results.
== END 2023-02-07 01:39 ==
LOC: DI 01:20
PROVIDERS: PCP Student in an Organized Health Care Education/Training Program; Visit Provider Student in an Organized Health Care Education/Training Program
DX: Z12.31 Encounter for screening mammogram for malignant neoplasm of breast (principal)
CPT/HCPCS: 77063; 77067

== ENCOUNTER → 2023-02-09 11:09 | Outpatient (BNVA) | payer MEDICARE, SELFPAY | PROVIDERS: PCP Student in an Organized Health Care Education/Training Program; Referring Provider Student in an Organized Health Care Education/Training Program | DX: M16.12 Unilateral primary osteoarthritis, left hip (principal) | CPT/HCPCS: 99214 ==

== ENCOUNTER 2023-02-16 01:11 | Outpatient (CLI) | payer MEDICARE, SELFPAY ==
--- NOTE | 2023-02-16 08:28 | DI.RAD_ITS ---
Exam(s) RF JOINT INJECTION FLUORO GUID EXAM: RF JOINT INJECTION FLUORO GUID CLINICAL HISTORY: L HIP INJ UNDER FLUORO,lt hip pain, m25.552. TECHNIQUE: 2D and realtime digital imaging was performed. COMPARISON: No exams were available for comparison FINDINGS: Fluoroscopy was provided for Dr. Diaz for guidance with performing a left hip injection. Please see procedure note for details. Fluoro time: 6seconds RADIATION DOSE DELIVERED: nuris Cordero=0.36 mGy
[2023-02-16] MEDS: Bupivacaine 0.5% Pres-Free 10 ML VIAL 5 ML IJ (14:56)
[2023-02-16] MEDS: methylPREDNISolone ACETATE 80 MG/ML VIAL IM (14:57)
--- NOTE | 2023-02-16 15:09 | W.PROCNOTE ---
Date of service: 02/16/23 Time of Service: 15:09 Procedure Note Date of procedure: 02/16/23 Procedure: Left Hip Injection with Fluoroscopic Guidance Surgeon/Proceduralist/Physician: Patrick Diaz Procedure Diagnosis: Left Hip Osteoarthritis Procedure Indications: Kika has had persistent pain of the LEFT hip and groin. Noninvasive measures have been tried. To serve as both diagnostic and therapeutic, an injection under fluoroscopy was recommended. I had discussed the risks of the procedure and the patient elected to proceed. Procedure Description: Kika was greeted in the flouroscopy room. The correct side was identified and the consent was reviewed with the patient and signed. The patient was then placed in the supine position on the fluoroscopy table. The LEFT hip was then prepped with Chloraprep. The anterolateral injection starting point was identiifed by bony landmarks and fluoroscopy. The skin and soft tissue in the tract of the injection was anesthetized with 1% Lidocaine. A spinal needle was then inserted deep into the hip joint at the level of the lateral femoral neck under fluoroscopic guidance. A small amount of Omnipaque solution was injected to confirm intraarticular placement. Once confirmed, the hip was injected with 5cc of 0.5% Bupivicaine and 80mg of Depo-Medrol. A bandaid was placed on the injection site. The patient tolerated the procedure well.
== END 2023-02-16 01:31 ==
LOC: DI 01:12
PROVIDERS: PCP Student in an Organized Health Care Education/Training Program; Visit Provider Student in an Organized Health Care Education/Training Program
DX: M25.552 Pain in left hip (principal)
CPT/HCPCS: 20610; 77002; J1040

== ENCOUNTER 2023-03-23 11:38 | Outpatient (CLI) | payer MEDICARE, SELFPAY ==
--- NOTE | 2023-03-23 11:00 | DI.RAD_ITS ---
Exam(s) XR PELVIS AP EXAM: XR PELVIS AP CLINICAL HISTORY: DJD L HIP. TECHNIQUE: 2D digital imaging was performed.One images were obtained. COMPARISON: CR XR HIP LT COMPLETE AP PELVIS from 10/27/2022 FINDINGS: BONES: No acute fracture is present. No bony destructive lesion is seen. JOINTS: No dislocation present. There are marked degenerative changes of the hips bilaterally with pierre int space narrowing and bony hypertrophy. The findings are most marked in the left hip. SOFT TISSUE: Atherosclerosis is present. IMPRESSION: Marked osteoarthritis of the hips bilaterally. DATA REPOSITORY: RADIATION DOSE DELIVERED:
== END 2023-03-23 11:39 | disposition home or self-care (01) ==
LOC: DIORS 11:39
PROVIDERS: PCP Student in an Organized Health Care Education/Training Program; Referring Provider Student in an Organized Health Care Education/Training Program; Visit Provider Student in an Organized Health Care Education/Training Program
DX: M16.12 Unilateral primary osteoarthritis, left hip (principal)
CPT/HCPCS: 99215; 72170

== ENCOUNTER 2023-04-23 07:31 | Emergency (ER) | payer MEDICARE, SELFPAY ==
[2023-04-23 07:34] VITALS: BP 201/100; PULSE 84; RESP 16; TEMP 36.7; O2SAT 99
--- NOTE | 2023-04-23 08:03 | W.EDPROG ---
Discharge Plan Discharge Details Chief Complaint: InsectBite Primary Care Provider: Ofelia Mcmahon ED Provider: Dionicio Gómez Home Meds and New Rx's Prescriptions: No Action PreserVision AREDS-2 [id number] ja-hidr-pr-mg capsule 1 tab PO DAILY omega-3 fatty acids [Fish Oil Concentrate] 1,000 mg capsule 1,000 mg PO DAILY multivitamin [Daily Multi-Vitamin] 1 EACH tablet 1 ea PO DAILY calcium carbonate-vitamin D3 1 EACH tablet 1 ea PO DAILY hydrochlorothiazide 12.5 mg capsule 12.5 mg PO DAILY Qty: 90 3RF Rx Instructions: to lower BP under 140/85 Glucosamine-Chondroitin 3X 750-600 mg tablet 2 tab PO DAILY
[2023-04-23] MEDS: Dexamethasone 4 MG TAB 10 MG PO (08:14)
[2023-04-23] MEDS: Cephalexin 500 MG CAP PO (08:14)
[2023-04-23] MEDS: diphenhydrAMINE 25 MG CAP 50 MG PO (08:14)
--- NOTE | 2023-04-23 08:15 | W.ED.GENAD ---
Discharge Plan Disposition Patient Disposition: Home Discharge Details Clinical Impression: Facial swelling, Tick bite, Cellulitis of face Primary Care Provider: Ofelia Mcmahon ED Provider: Dionicio Gómez Home Meds and New Rx's Prescriptions: New cephalexin 500 mg capsule 500 mg PO QID 10 Days Qty: 40 0RF Continued PreserVision AREDS-2 [id number]-mg capsule 1 tab PO DAILY omega-3 fatty acids [Fish Oil Concentrate] 1,000 mg capsule 1,000 mg PO DAILY multivitamin [Daily Multi-Vitamin] 1 EACH tablet 1 ea PO DAILY calcium carbonate-vitamin D3 1 EACH tablet 1 ea PO DAILY hydrochlorothiazide 12.5 mg capsule 12.5 mg PO DAILY Qty: 90 3RF Rx Instructions: to lower BP under 140/85 Glucosamine-Chondroitin 3X 750-600 mg tablet 2 tab PO DAILY Discharge Instructions Instructions: Cellulitis (ED), Tick Bite (ED) Additional Instructions: You were seen in the emergency department with right-sided facial swelling after a tick bite. You likely have a skin infection from the tick causing a cut/skin breakdown on the right side of your head. We gave you some antibiotics to treat this. You should take the antibiotics prescribed for the full duration even if you start to feel better. We sent the tick panel for you which will take a few days to result and may be falsely negative this close to your tick exposure and is unlikely to be explaining your current symptoms. Follow-up with your doctor about this finding but know that your test may be falsely negative and you should talk to your doctor about repeat testing at your next visit. You can continue to take Benadryl 50 mg twice a day to help with your swelling of your face. We gave you dose of steroids here to help with your symptoms additionally. Return for any trouble breathing, trouble swallowing, worsening rash, worsening swelling, or any other concerns that you may have. Follow-up with your primary care doctor about this visit. Referrals: Ofelia Mcmahon DO [Primary Care Provider] - 1 week Discharge Data Discharge Physician: Dionicio Gómez Medical Decision Making 82-year-old female presents with right-sided facial swelling. Based off of the tick bite and now with redness swelling and tenderness to the right side of the face I suspect that the patient has a facial cellulitis. Will treat with antibiotics. No severe symptoms or signs of sepsis so no role for more aggressive treatment such as IV antibiotics at this time. She has no findings on exam or in history to suggest soft tissue abscess of the neck. She has full range of motion of the eye without pain so I am not concerned for orbital cellulitis at this time. Her tick bite was only 2 days ago so I doubt she has developed a tickborne illness at this time. She is requesting a tickborne panel and I told her this could be falsely negative this early with testing but she would still like it and says she is get a follow-up with her doctor. I have ordered this for her as well as baseline labs as certainly certain tickborne illnesses could cause some electrolyte and LFT derangements. Again I do not think that this is a tickborne illness at this time. Suspect this is a facial cellulitis. No airway involvement. Will treat with antibiotics and give some steroids and Benadryl to help with the facial swelling. If labs are unremarkable we will discharge with return precautions. Lab Data Lab results reviewed: Yes I reviewed the patient's lab results. Lab results narrative: Labs grossly unremarkable. Tickborne illness panel still pending and told patient she needs to follow-up with her doctor for results and that they may be falsely negative this early after exposure to a tick bite. HPI General Mode of arrival: ambulatory. Date/Time Provider Initiated Documentation: 04/23/23 07:33. Limitations to Documentation: no limitations. Information obtained by: patient. HPI Narrative: This is an 82-year-old female with history of hypertension who is now presenting with right-sided facial swelling. She said she got a tick bite on the right side of her top head 2 days ago. She removed it. She said it was an [place] dog tick. She actually went to an express care yesterday and she said they did not do anything for her. She returns now she has developed some right-sided facial swelling and warmth. Says it is also a little itchy. She is denying any other complaints. No shortness of breath or any nausea or vomiting. No other gastrointestinal symptoms. No trouble swallowing or trouble breathing. Says her voice sounds normal. She has no neck pain. No fevers or chills. Denies taking any new medications or any other drugs or supplements. Related Data Home Medications Medication Instructions Recorded Confirmed calcium carbonate 600 mg-vitamin 1 ea PO DAILY 10/23/15 04/23/23 D3 5 mcg (200 unit) tablet multivitamin (Daily Multi-Vitamin 1 ea PO DAILY 10/23/15 04/23/23 tablet) omega-3 fatty acids 1,000 mg 1,000 mg PO DAILY 04/09/19 04/23/23 capsule (Fish Oil Concentrate) vit C 250 mg-vit E 90 mg-zinc 40 1 tab PO DAILY 04/09/19 04/23/23 mg-copper 1 [id number] capsule (PreserVision AREDS-2) hydrochlorothiazide 12.5 mg capsule 12.5 mg PO DAILY #90 tab-caps 10/03/22 04/23/23 glucosamine sulf 2 tab PO DAILY 10/25/22 04/23/23 sod.chlor-chondroitn sulf sodium 750 mg-600 mg tablet (Glucosamine-Chondroitin 3X) cephalexin 500 mg capsule 500 mg PO QID 10 days #40 caps 04/23/23 Previous Rx's Medication Instructions Recorded hydrochlorothiazide 12.5 mg capsule 12.5 mg PO DAILY #90 tab-caps 10/03/22 cephalexin 500 mg capsule 500 mg PO QID 10 days #40 caps 04/23/23 Allergies Allergy/AdvReac Type Severity Reaction Status Date / Time sulfamethoxazole Allergy Unknown unknown Verified 04/23/23 07:44 [From Bactrim] trimethoprim [From Bactrim] Allergy Unknown unknown Verified 04/23/23 07:44 amlodipine AdvReac Intermediate shoulder Verified 04/23/23 07:44 pain, fatigue General Stated Complaint: InsectBite ALESSANDRA: 3 Review of Systems Constitutional Constitutional: Denies chills, Denies fever(s) and Denies headache(s) Eyes Eyes: Denies change in vision ENT Ears, Nose, Mouth, and Throat: Denies headache(s), Denies odynophagia, Denies throat swelling and Denies tongue swelling Comments: facial swelling Cardiovascular Cardiovascular: Denies chest pain and Denies dyspnea Respiratory Respiratory: Denies dyspnea Gastrointestinal Gastrointestinal: Denies abdominal pain, Denies diarrhea, Denies nausea, Denies odynophagia and Denies vomiting Genitourinary Genitourinary: Denies dysuria Musculoskeletal Musculoskeletal: Denies myalgias Integumentary/Breasts Skin/Breast: Denies changing lesions Neurologic Neurologic: Denies behavioral changes and Denies headache(s) Psychiatric Psychiatric: Denies behavioral changes Endocrine Endocrine: Denies heat intolerance Hematologic/Lymphatic Hematologic/Lymphatic: Denies lymphadenopathy Allergic/Immunologic Allergic/Immunologic: Denies throat swelling and Denies tongue swelling PFSH All Active Problems (Updated 04/23/23 @ 08:23 by Dionicio Gómez MD) Facial swelling (Acute) Tick bite (Acute) Cellulitis of face (Acute) Degenerative joint disease of left hip (Acute) Loose stools (Acute) AM, with regular BMs afterwards .. Hx immodium only with watery stools. 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 DEXA 12/2012 T-1.9 hip, T-1.8 spine; -3.0 R wrist; FRAX 50.7/35.6 ; h/o bisphosphonates after L wrist fx; LifeStyle: Explore Engage balance training. Impaired fasting glucose (Acute) Medical History Diverticulosis (09/01/16) Found on colonoscopy HTN (hypertension) Stress due to illness of family member Tubular adenoma of colon (04/21/11) colo 2015 tubular adenoma colo 2020 clear/negative Uterine fibroid Dr. Felix CONTRACT RECRUITER/[facility] Surgical History Cataracts, bilateral colonoscopy (08/31/16) Cortical cataract of left eye Nuclear sclerotic cataract of left eye Nuclear sclerotic cataract of right eye S/P bilateral cataract extraction (~04/2021) S/P total hysterectomy (07/16/21) w/ rgt salpingo-oophorectomy, left oophorectomy Jai Felix MD [facility] Tonsillectomy and adenoidectomy pt. states just her tonsills were removed NOT adenoids Family History Mother , Stroke at age 93. No problems noted. Brother No problems noted. 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 Pets and animals: Yes Pets and animals: dog(s) Sexually active: No Do you think of yourself as: straight/heterosexual Current gender identity: female What is your relationship status?: How often do you talk on the phone with friends or family?: three or more times per week How often do you get together with friends or relatives?: once per week Do you belong to any clubs or organized social groups?: yes Panel score (0-1 are the most socially isolated patients): 2 What type of physical activity do you participate in: walking Duration: 30-45 minutes/day Jeannette/Holiness: Sabianist Special jeannette needs: No Agree to transfusion: Yes Seatbelt use: always Helmet use: No Drive intox or ride w/intox cdl dedicated truck driver: No Working smoke detector in home: Yes Fire extinguisher in home: Yes Carbon monox detector in home: Yes Do you feel safe at home: Yes Do you feel safe in your relationship?: Yes Victim of physical abuse: No Victim of emotional abuse: No Victim of sexual abuse: No Exam Const General: cooperative Nutritional Appearance: average body habitus Orientation: alert, awake and oriented x3 HENMT Head: normal to inspection Ears: external ears normal Mouth: moist mucous membranes Other: Has a small skin breakdown at the site of the tick bite on the right superior head. Has some swelling, tenderness, and redness across the right face. Involves the inferior eyelid. Full range of motion of the eye without pain and no vision changes. No proptosis. Full range of motion of the neck without pain. No tenderness to the neck or anterior neck. Base of the tongue is soft. Uvula is midline. No tonsillar enlargement. No swelling within the mouth or on the left side of the face. Eyes Pupils: PERRL EOM: EOM intact bilaterally and No nystagmus Neck Neck: full ROM and no tracheal deviation Chest Chest: normal inspection of the chest Resp Auscultation: clear to auscultation bilaterally Cardio Rate: regular rate Rhythm: regular rhythm GI Inspection: normal to inspection Palpation: soft, no guarding, not rigid and nontender Back/Spine/Pelvis Back: No no CVA tenderness Thoracic/Lumbar Spine: thoracic and lumbar spine normal to inspection Skin General skin exam: no rashes or lesions noted Neuro General: patient alert, patient awake and patient oriented x3 Cranial Nerves: CN's II-XI intact bilaterally, PERRL and no nystagmus Cognition: normal cognition Motor: muscle tone normal throughout and strength 5/5 throughout Sensory Exam: no sensory deficits noted Extrem General: normal to inspection Course Vital Signs Vital signs: Vital Signs Temperature 36.7 C 04/23/23 07:34 Pulse 84 04/23/23 07:34 Respiratory Rate 16 04/23/23 07:34 Blood Pressure 201/100 H 04/23/23 07:34 Pulse Oximetry 99 04/23/23 07:34 Temperature 36.7 C 04/23/23 07:34 Temperature Source Skin 04/23/23 07:34 Pulse 84 04/23/23 07:34 Respiratory Rate 16 04/23/23 07:34 Respiratory Effort Normal, Non-Labored 04/23/23 07:46 Blood Pressure 201/100 H 04/23/23 07:34 Blood Pressure Position Sitting 04/23/23 07:34 Pulse Oximetry 99 04/23/23 07:34 Oxygen Delivery Method Room Air 04/23/23 07:34 Oxygen Flow Rate 0 04/23/23 07:34 Pain Level 3 04/23/23 07:34 PAWSS Have you Been Recently Intoxicated or Drunk Within the Last 30 days?: No Have you Ever Experienced Previous Episodes of Alcohol Withdrawal?: No Have you ever Experienced Withdrawal Seizures?: No Have you ever Experienced Delirium Tremens(DT)s?: No Have you ever undergone Alcohol Rehabilitation Treatment (i.e, inpt ot outpatient treatment programs)?: No Have you ever Experienced Blackouts?: No Have you ever Combined Alcohol with other Downers within the last 90 days?: No Have you ever Combined Alcohol with any other Substance of Abuse during the last 90 days?: No Positive Blood Alcohol level on Presentation? [PCS.BAL]: No Evidence of Increased Autonomic Activity (i.e. HR>120, tremor, sweating, agitation, nausea)?: No Result: 0
[2023-04-23 08:21] LABS: Abs Immature Grans 0.03 10^3/uL (0.0-0.06); Absolute Basophil Count 0.01 10^3/uL (0.0-0.2); Absolute Eosinophil Count 0.21 10^3/uL (0.0-0.7); Absolute Lymphocyte Count 1.35 10^3/uL (1.2-3.4); Absolute Monocyte Count 0.45 10^3/uL (0.1-0.8); Absolute Neutrophil Count 4.08 10^3/uL (1.2-6.7); Basophils % 0.2; Eosinophils % 3.4; HCT 42.7 % (36.0-46.0); HGB 14.3 g/dL (11.2-15.7); Immature Grans % 0.5; MCHC 33.5 % (32.0-36.0); MCV 93 fL (80-95); MPV 10.6 fL (8.0-11.0); Monocytes % 7.3; Neutrophils % 66.6; Platelet Count 231 10^3/uL (130-400); RBC 4.61 10^6/uL (3.93-5.22); RDW-SD 41.2 fL; WBC 6.13 10^3/uL (4.4-10.8)
[2023-04-23 08:40] LABS: ALT 30 U/L (14-59); AST 22 U/L (15-37); Albumin 4.2 g/dL (3.4-5.0); Alkaline Phosphatase 121 U/L (46-116); Anion Gap 5.7 mmol/L (3-11); BUN 10 mg/dL (7-18); Bilirubin, Total 0.6 mg/dL (0.2-1.0); CO2 30.3 mmol/L (21.0-32.0); CREATININE 0.6 mg/dL (0.55-1.02); Calcium 8.8 mg/dL (8.5-10.1); Chloride 97 mmol/L (98-107); Estimated GFR 89.01 (mL/min/1.73m2); Glucose 110 mg/dL (74-106); Potassium 3.6 mmol/L (3.5-5.1); Sodium 133 mmol/L (136-145)
[2023-04-23 08:49] VITALS: BP 188/98
[2023-04-23 08:50] VITALS: BP 188/98
[2023-04-25 15:53] LABS: Anaplasma phagocytophilum Negative (Negative); B. miyamotoi PCR Negative (Negative); Babesia divergens/MO-1 Negative (Negative); Babesia duncani Negative (Negative); Babesia microti Negative (Negative); Ehrlichia chaffeensis Negative (Negative); Ehrlichia ewingii/canis Negative (Negative); Ehrlichia muris eauclairensis Negative (Negative)
== END 2023-04-23 08:58 | disposition home or self-care (01) ==
PROVIDERS: Emergency Provider Student in an Organized Health Care Education/Training Program; PCP Student in an Organized Health Care Education/Training Program
DX: S00.06XA Insect bite (nonvenomous) of scalp, initial encounter (principal); L03.211 Cellulitis of face; R22.0 Localized swelling, mass and lump, head; W57.XXXA Bitten or stung by nonvenomous insect and other nonvenomous arthropods, initial encounter
CPT/HCPCS: 36415; 80053; 87798; 99283; 85025; 99284; J8540

== ENCOUNTER 2023-05-18 04:12 | Outpatient (CLI) | payer MEDICARE, SELFPAY ==
[2023-05-18 08:01] LABS: HCT 39.3 % (36.0-46.0); HGB 13.2 g/dL (11.2-15.7); MCH 31.1 pg (27.0-33.0); MCHC 33.6 % (32.0-36.0); MCV 93 fL (80-95); MPV 9.7 fL (8.0-11.0); Platelet Count 246 10^3/uL (130-400); RBC 4.24 10^6/uL (3.93-5.22); RDW 12.2 % (11.7-14.6); RDW-SD 41.6 fL; WBC 5.52 10^3/uL (4.4-10.8)
[2023-05-18 08:15] LABS: Anion Gap 7.9 mmol/L (3-11); BUN 14 mg/dL (7-18); CO2 29.1 mmol/L (21.0-32.0); CREATININE 0.6 mg/dL (0.55-1.02); Calcium 8.7 mg/dL (8.5-10.1); Chloride 99 mmol/L (98-107); Estimated GFR 89.01 (mL/min/1.73m2); Glucose 104 mg/dL (74-106); Potassium 3.7 mmol/L (3.5-5.1); Sodium 136 mmol/L (136-145)
== END 2023-05-18 04:13 | disposition home or self-care (01) ==
LOC: LBO 04:12
PROVIDERS: Student in an Organized Health Care Education/Training Program; PCP Student in an Organized Health Care Education/Training Program; Visit Provider Student in an Organized Health Care Education/Training Program
DX: Z01.818 Encounter for other preprocedural examination (principal); M16.12 Unilateral primary osteoarthritis, left hip
CPT/HCPCS: 36415; 80048; 85027

== ENCOUNTER 2023-05-25 08:08 | Outpatient (CLI) | payer MEDICARE, SELFPAY ==
--- NOTE | 2023-05-25 08:00 | RT.EKG_ITS ---
APPROVED REPORT Exam: Resting ECG Reason for Exam: pre o EKG prior to surgery Patient Location: O HR:72 bpm ECG Measurements Heart Rate 72 AXIS VA 167 P 31 QRSd 97 QRS -50 QT 403 T 22 QTc 442 Conclusion Sinus rhythm...normal P axis, V-rate 50- 99 Probable left atrial enlargement...P >50mS, <-0.10mV V1 Inferior infarct, old...Q >35mS, II III aVF Anterior infarct, old...Q >40mS, abnormal ST-T, V2-V5
== END 2023-05-25 08:09 | disposition home or self-care (01) ==
LOC: DI.KIM 08:09
PROVIDERS: PCP Student in an Organized Health Care Education/Training Program; Visit Provider Student in an Organized Health Care Education/Training Program
DX: Z01.818 Encounter for other preprocedural examination (principal)
CPT/HCPCS: 93010

== ENCOUNTER 2023-05-31 07:56 | Day surgery (SDC) | payer MEDICARE, SELFPAY ==
[2023-05-31] VITALS (9 sets, daily range): BP systolic 134–188; BP diastolic 49–91; PULSE 62–85; RESP 15–18; TEMP 35.8–36.5; O2SAT 67–99; BMI 23.4
[2023-05-31] MEDS: Celecoxib 200 MG CAP 400 MG PO (08:19)
[2023-05-31] MEDS: Acetaminophen 500 MG TAB 1000 MG PO (08:19)
[2023-05-31] MEDS: Lactated Ringers 1,000 ML 80 ML IV (08:46)
--- NOTE | 2023-05-31 08:47 | W.ANESPRE ---
General Info Date of Service Date Performed: 05/31/23 Height: 5 ft Weight: 54.4 kg Body Mass Index (BMI): 23.4 Surgical Procedure: Operation Date: 05/31/23 10:50 Proposed Procedure Side Surgeon p Hip Total Hip Anterior, Corail 125 Deg. Stem Left Patrick Diaz MD Meds Allergies and Home Medications Allergies Allergy/AdvReac Type Severity Reaction Status Date / Time sulfamethoxazole Allergy Unknown unknown Verified 05/31/23 08:58 [From Bactrim] trimethoprim [From Bactrim] Allergy Unknown unknown Verified 05/31/23 08:58 amlodipine AdvReac Intermediate shoulder Verified 05/31/23 08:58 pain, fatigue Home Medication Medication Instructions Recorded calcium carbonate 600 mg-vitamin 1 ea PO DAILY 10/23/15 D3 5 mcg (200 unit) tablet multivitamin (Daily Multi-Vitamin 1 ea PO DAILY 10/23/15 tablet) omega-3 fatty acids 1,000 mg 1,000 mg PO DAILY 04/09/19 capsule (Fish Oil Concentrate) vit C 250 mg-vit E 90 mg-zinc 40 1 tab PO DAILY 04/09/19 mg-copper 1 [id number] capsule (PreserVision AREDS-2) hydrochlorothiazide 12.5 mg capsule 12.5 mg PO DAILY #90 tab-caps 10/03/22 glucosamine sulf 2 tab PO DAILY 10/25/22 sod.chlor-chondroitn sulf sodium 750 mg-600 mg tablet (Glucosamine-Chondroitin 3X) acetaminophen 650 mg 650 mg PO DIRECTED 05/29/23 tablet,extended release Current Visit Medications: Current Medications Generic Name Dose Route Start Last Admin Trade Name [place] PRN Reason Stop Dose Admin Acetaminophen 1,000 mg 05/31/23 06:00 05/31/23 08:19 Acetaminophen 500 Mg Tab PO 06/30/23 05:59 1,000 mg PREOP ARNEL Administration Celecoxib 400 mg 05/31/23 06:00 05/31/23 08:19 Celecoxib 200 Mg Cap PO 06/30/23 05:59 400 mg PREOP ARNEL Administration Tranexamic Acid 1,000 mg/ 60 mls @ 360 mls/hr 05/31/23 06:00 Sodium Chloride IV 06/30/23 05:59 PREOP ARNEL Ringer's Solution 1,000 mls @ 80 mls/hr 05/31/23 06:00 05/31/23 08:46 IV 06/29/23 23:59 80 mls/hr INFUSION ARNEL Administration Cefazolin Sodium/Dextrose 2 gm in 50 mls @ 100 mls/hr 05/31/23 06:00 Ancef Duplex IVPB 06/29/23 23:59 PREOP ARNEL IV Miscellaneous Supplies 1 each 05/31/23 06:00 Iv Access IV 06/29/23 23:59 DIRECTED ARNEL Sodium Chloride 0 ml 05/31/23 06:00 Normal Saline Flush 10 Ml Syr IV 06/29/23 23:59 PRN PRN Sodium Chloride 0 ml 05/31/23 06:00 Normal Saline 10 Ml Vial IJ 06/29/23 23:59 DIRECTED PRN Sterile Water 0 ml 05/31/23 06:00 Water,Injection,Sterile 10 Ml Vial IJ 06/29/23 23:59 DIRECTED PRN REPLACED BY [facility] Active Problems Active Problems: Problem Status Onset Code Degenerative joint disease of left hip M16.12 Loose stools R19.5 Piriformis syndrome of left side G57.02 Left-sided low back pain with left-sided sciatica M54.42 Grieving F43.21 Poor sleep pattern G47.8 Essential hypertension 12/01/15 I10 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 Felix SAFETY ANALYST/[facility] Surgical History Surgical History Cataracts, bilateral colonoscopy (08/31/16) Cortical cataract of left eye Nuclear sclerotic cataract of left eye Nuclear sclerotic cataract of right eye S/P bilateral cataract extraction (~04/2021) S/P total hysterectomy (07/16/21) w/ rgt salpingo-oophorectomy, left oophorectomy..Jai Felix MD [facility] Tonsillectomy and adenoidectomy pt. states just her tonsills were removed NOT adenoids Tobacco Smoking/Tobacco Use Status: Never Alcohol Alcohol Intake: current Alcohol intake frequency: 0-2 drinks per day Alcohol type: wine Details: 4oz of wine daily with dinner. Substance Use Substance use: Never Substance use type: does not use Vital Signs and Lab Results Vital Signs Most Recent Vital Signs in EMR: Most Recent Vital Signs Temp Pulse Resp BP Pulse Ox 36.2 C L 85 16 188/90 H 99 05/31/23 08:24 05/31/23 08:24 05/31/23 08:24 05/31/23 08:24 05/31/23 08:24 Lab Results Blood Type / Crossmatch: No Data to Display Complete Blood Count: White Blood Count 5.52 10^3/uL (4.4-10.8) 05/18/23 07:45 Red Blood Count 4.24 10^6/uL (3.93-5.22) 05/18/23 07:45 Hemoglobin 13.2 g/dL (11.2-15.7) 05/18/23 07:45 Hematocrit 39.3 % (36.0-46.0) 05/18/23 07:45 Platelet Count 246 10^3/uL (130-400) 05/18/23 07:45 Complete Metabolic Panel: Sodium 136 mmol/L (136-145) 05/18/23 07:45 Potassium 3.7 mmol/L (3.5-5.1) 05/18/23 07:45 Chloride 99 mmol/L (98-107) 05/18/23 07:45 Carbon Dioxide 29.1 mmol/L (21.0-32.0) 05/18/23 07:45 BUN 14 mg/dL (7-18) 05/18/23 07:45 Creatinine 0.6 mg/dL (0.55-1.02) 05/18/23 07:45 Est GFR (CKD-EPI 2020) 89.01 (mL/min/1.73m2) 05/18/23 07:45 Calcium 8.7 mg/dL (8.5-10.1) 05/18/23 07:45 Glucose 104 mg/dL (74-106) 05/18/23 07:45 Liver Function Panel: No Data to Display Coagulation Panel: No Data to Display Cardiac Panel: No Data to Display Arterial Blood Gas: No Data to Display Venous Blood Gas: No Data to Display Pancreas Panel: No Data to Display Thyroid Panel: No Data to Display Infectious Disease: No Data to Display Blood Cultures: No Data to Display Toxicology Panel: No Data to Display Imaging and Studies Imaging and Studies Study information below may be from another EMR and interpreted by another provider. Please see original notes in EMR for more complete details. EKG Summary: 05/26/2023: NSR Anesthesia Assessment and Plan Anesthesia History Personal History: No History of Anesthesia Complications Family History: No Family History of Anesthesia Complications Exercise Tolerance Exercise Tolerance: Metabolic Equivalents>4 Pertinent Negatives Pertinent Negatives: No Symptoms of GERD, No Major Cardiovascular Symptoms or Complaints and No Major Pulmonary Symptoms or Complaints Cardiac & Pulmonary Exam Cardiac Exam: Normal S1/S2 Heart Sounds Pulmonary Exam: Clear Bilateral Breath Sounds Implantable Cardiac Device Does patient have a Pacemaker or an ICD?: No Airway Exam Known Difficult Airway: No Mallampati Class: 3 Mouth Opening: Normal (> 3cm) Thyromental Distance: Greater than 3 cm Neck Range of Motion: Full ROM Neck Circumference: Normal Teeth Condition: Normal Dentition Airway Comments: Multiple caps and crowns ASA Classification ASA Score: ASA 2 Emergency Case?: No NPO Status NPO Status: NPO Clears >2 hours, Solids >8 hours Anesthesia Plan Resuscitation Status: Full Code Anesthesia Technique: Spinal Anesthesia Airway Planned: Natural Airway Monitors Used: Standard Monitors
[2023-05-31] MEDS: ceFAZolin 2 GM/50 ML BAG IVPB (09:54)
--- NOTE | 2023-05-31 11:21 | DI.RAD_ITS ---
Exam(s) XR HIP LT IN OR EXAM: XR HIP LT IN OR CLINICAL HISTORY: left total hip. TECHNIQUE: 2D digital imaging was performed. COMPARISON: No exams were available for comparison FINDINGS: Fluoroscopy provided for hip arthroplasty. See procedure report for details. Total fluoroscopy time 42.6 seconds Radiation exposure/cumulative dose: nuris Cordero= 3.53mGy IMPRESSION: As above. DATA REPOSITORY: RADIATION DOSE DELIVERED:
--- NOTE | 2023-05-31 11:33 | W.PM.DSUDISC ---
Date of service: 05/31/23 Time of Service: 14:45 Discharge Plan Disposition Patient Disposition: Home Condition: Good Discharge Details Reason For Visit: Left Hip DJD Attending Provider: Patrick Diaz Primary Care Provider: Ofelia Mcmahon Home Meds and New Rx's Prescriptions: New celecoxib 200 mg capsule 200 mg PO BID PRN (Reason: pain) Qty: 60 1RF aspirin 81 mg tablet,delayed release (DR/EC) 81 mg PO BID Qty: 60 0RF tramadol 50 mg tablet 50 mg PO Q4H PRNQty: 18 0RF pantoprazole 40 mg tablet,delayed release (DR/EC) 40 mg PO DAILY Qty: 30 0RF dexamethasone 4 mg tablet 4 mg PO DAILY Qty: 2 0RF Rx Instructions: Starting Post-Operative Day #1 (Day after surgery) Continued PreserVision AREDS-2 [id number] [id number]-mg capsule 1 tab PO DAILY omega-3 fatty acids [Fish Oil Concentrate] 1,000 mg capsule 1,000 mg PO DAILY multivitamin [Daily Multi-Vitamin] 1 EACH tablet 1 ea PO DAILY calcium carbonate-vitamin D3 1 EACH tablet 1 ea PO DAILY hydrochlorothiazide 12.5 mg capsule 12.5 mg PO DAILY Qty: 90 3RF Rx Instructions: to lower BP under 140/85 Glucosamine-Chondroitin 3X 750-600 mg tablet 2 tab PO DAILY Changed acetaminophen 650 mg Tablet Extended Release 650 mg PO Q6H PRN PRNQty: 0 0RF Discharge Instructions Additional Instructions: Total Hip Discharge Instructions Activity: The most important activity is to walk. You should try to take short walks a few times a day. You have no restrictions on movement or positioning, but do not try to force what you do. You will find some stiffness and weakness with hip flexion (lifting your knee). Do not try to strengthen this too early, continue to practice walking and stairs and this will come. - Outpatient physical therapy can be helpful to help return you to a normal gait and improve your flexibility and strength. This can start around 2 weeks. For some patients, it?s not necessary. Usually this is determined at the time of discharge or at the first post-operative visit. - You should wear the PAT hose on both legs for 2 weeks. Dressing: Keep the surgical dressing in place for at least one week. After the first week it may be removed and replace with light gauze and tape or nothing. It may get wet after 3 days but avoid soaking the dressing. If it gets wet, just lightly pat dry. It is important to always keep some gauze between skin folds, especially when you are sitting. Spend some time with the wound exposed when you are lying flat as the incision does wrinkle onto itself. Medications: - You should take Tylenol and an anti-inflammatory Celebrex as your primary pain control medications. If the Celebrex is too expensive or not covered, please call the office for another alternative (Advil/Ibuprofen or Naproxen/Aleve). - You have been prescribed a stronger pain medication Tramadol for breakthrough pain, take as needed as prescribed. - You have also been prescribed a stomach acid reduction agent Pantoprozole to help reduce stomach acid and reflux. - You have also been prescribed Decadron to help with post-operative nausea and pain. You will take this for two days starting tomorrow. - You will be taking Aspirin 81mg twice a day for DVT prevention unless instructed otherwise. - If you have constipation you should take Colace or Miralax (both [id number]). It takes most people 3-4 days to have a bowel movement. Follow-up: 2 weeks If you have any acute concerns or questions, please do not hesitate to contact the office at [phone]. You may contact Dr. Diaz with any questions after hours through the hospital at [phone] or on his cell phone at [phone]. Referrals: Patrick Diaz MD [ [facility] STAFF PHYSICIAN] - Equipment/Supplies: Walker Activity:: Activity as Tolerated Shower/Bathe:: 72 hours and Cover Diet:: As Tolerated Discharge Orders Discharge Orders: Discharge Order (Routine); Ordered 05/31/23 Ordered By: Patrick Diaz DS: Diagnosis Discharge Diagnosis (1) Degenerative joint disease of left hip: Status: Acute
--- NOTE | 2023-05-31 11:51 | W.PM.OP ---
Date of service: 05/31/23 Time of Service: 11:51 Operative Note Operative Note DATE OF PROCEDURE: 05/31/23 PRE-OP DIAGNOSIS: Left Hip Osteoarthritis POST-OP DIAGNOSIS: same PROCEDURE: Left Anterior Total Hip Arthroplasty with Intraoperative Navigation SURGEON: Patrick Diaz ONCOLOGY REP SPECIALIST: Michell Heredia ANESTHESIA TYPE: Spinal Refer to Anesthesia Record ESTIMATED BLOOD LOSS: 300 PATHOLOGY: none sent TOURNIQUET TIME: 0 COMPLICATIONS: None Patient was transported to: PACU Patient's condition: stable Implants: 1. Depuy [place] Acetabular Component, 50mm 2. Depuy Acetabular Liner, [id number] 3. Depuy Corail Standard 125 degree Collared Femoral Stem, Size 12 4. Depuy Altrx Ceramic Femoral Head, Size 32+5mm Indications: I have seen Kika in clinic for symptoms of hip arthritis, confirmed with radiographic findings. She has exhausted nonoperative methods and was having significant limitations in daily function and desired better function and less pain. I discussed the technical details of a hip replacement. I explained the risks of the procedure to include, but not limited to, bleeding, infection, pain, stiffness, fracture, damage to nerves and vessels, damage to muscles and tendons, loosening, instability, leg length inequality, need for repeat procedure, blood clot and cardiopulmonary demise. Despite these risks, Kika elected to proceed. Findings: There was significant signs of arthritis throughout the hip. There was notable synovitis and loose bodies. Procedure Description: Kika was greeted in the preoperative holding area where the correct side was identified and marked. The consent was reviewed with the patient and signed. The history and physical was updated. All questions were answered. She was taken back to the operating room. A spinal anesthestic was then administered. The feet were wrapped with cast padding and Coban and then placed into the boot liners and then into the boots. Care was taken to protect the skin and make sure the heels were fully down and the boots were stable. The patient was then positioned onto the HANA table. Both legs were held in a neutral position. SCDs were applied. The patient was then slid down onto a peroneal post. Prophylactic antibiotics in the form of Cefazolin were administered. 1g of Tranxemic Acid was given intravenously within 30 minutes of incision. The left leg was then prepped with Chloraprep and draped in a standard fashion. A second prep with Chloraprep was performed prior to placement of a shower-curtain type drape with Iodine impregnated skin protection. A timeout to confirm correct identity, side and site, procedure, allergies, anesthesia, and medical concerns was performed. An obliquely oriented incision was made starting lateral to the ASIS and running distal over the Tensor Fascia Martha (TFL) muscle belly toward the fibular head, approximately 10cm. The skin and soft tissue was dissected sharply, through Elza?s fascia, and to the fascia of the TFL. With the fascia and superior border of the IT band identified, the fascia was incised with a new knife just above any perforators from the IT band. The TFL muscle belly was bluntly dissected away from the fascia and moved laterally. The fat between TFL and rectus was identified to ensure the dissection was not within the TFL. Blunt dissection created space between abductors and the capsule and retractor was placed over the lateral femoral neck. The fibers of the rectus femoris tendon were identified and these were freed from the anterior capsule. A second cobra retractor was placed around the medial femoral neck. The TFL was further retracted laterally to show the deep fascia. Careful dissection through this layer identified three main crossing vessels of the lateral femoral circumflex. These were cauterized in multiple locations and then cut without any noticeable bleeding. The TFL was further released bluntly from the deep fascia to expose anterior hip capsule and fat The Jerson orthopaedic retractor was then placed beneath the TFL and against sartorius and medial soft tissues to protect and retract the soft tissues. A T-capsulotomy was then performed starting at the superior lateral acetabulum and moving distally to the intertrochanteric ridge. These capsular flaps were tagged with a No. 1 Ethibond and elevated from within. The capsular flaps were released to the shoulder of the lateral neck and to the lesser trochanter to give excellent visualization of the proximal femur. A neck osteotomy was performed using an oscillating saw based on preoperative templates. This cut started in the shoulder and of the lateral neck and exited medially. The saw was at all times directed medially to avoid injury to the greater trochanter. Gross traction was applied to the leg and the osteotomy opened. The femoral head was removed with a corkscrew, making sure to protect the TFL on its exit. Traction was released after head removal. This was measured on the back table to determine the starting reamer size. Portions of the rectus obscuring visualization were minimally elevated off the superior acetabulum. An anterior retractor was placed over the anterior wall between capsule and labrum and attached to the Gripper retraction system. The femur was rotated to 90 degrees and medial capsule was fully released until the lesser trochanter was palpable and visible; the femur was returned to 30 degrees. A posterior retractor was placed similarly between capsule and labrum. This provided excellent visualization. The contents of the cotyloid fossa were removed with electrocautery and the labrum was removed with a knife. There was a notable floor osteophyte. There was significant chondromalacia of the superior acetabulum. There was also synovitis throughout the hip which was excised for better visualizaiton. Acetabular reaming began with a 44mm reamer. This first reaming was directed anterior to posterior and medial to get down to the true floor. This was inspected and reamed until the true floor was reached. The anterior retractor was then released and entry and exit was provided by traction on the capsular flaps. I then reamed sequentially up to a 50mm reamer where good fit was obtained. The larger reamers were oriented based on anatomical reference of the anterior and lateral abdul to ensure proper abduction and anteversion. Positioning and size was confirmed with the fluoroscopy. A 50mm Depuy [place] acetabular component was selected. The acetabulum was reamed around the periphery with the selected acetabular size to prevent a rim fit. The deep tissues were irrigated. The acetabular component was then impacted in a position of about 40-45 degrees of abduction and 15-20 degrees of anteversion, using the patient?s anatomy as the ultimate landmark. Fluoroscopy was used to confirm this. There was excellent microarray operations vice president of the acetabular component and the inserting handle was removed. The acetabular liner, Depuy [id number] polyethylene liner, was inserted and lined up with the tines of the acetabular component. There was no soft tissue interposition. The liner was then impacted into position and confirmed to be well-seated. A portion of the xavier-articular cocktail was then injected around the acetabulum into the capsule and periosteum. This cocktail consisted of 123mg of Ropivacaine, 0.25mg of Epinephrine, 0.04mg of Clonidine, and 15mg of Ketorolac, diluted to 50cc. The leg was rotated to 120 degrees. Any remaining medial capsule was released until the lesser trochanter was easily palpable. A retractor was placed medially. The lateral capsule was further released into the shoulder to allow access to the greater trochanter. A [place] retractor was placed over the greater trochanter which allowed the trochanter to flip in front of the capsule for excellent exposure. The leg was brought down into maximal extension and 20 degrees of adduction while ensuring there was no impingement on the acetabulum. Any remnant capsule within the trochanter was released. Piriformis and obturator externis were identified and protected. There was excellent access to the proximal femur. The lateral neck remnant was removed with a rongeur. A blunt canal probe was used to identify the canal and trajectory for later broaching. A box osteotome initiated the broach course. A small curved rasp and a curved curette were used to work laterally. Broaching then began with a size 8 Corail broach. This was inserted manually around the trochanter and into the canal before mallet blows. The broach was seated to a few millimeters below the cut level based on the neck cut and the preoperative template. Sequential broaching was continued with the PawSpotse pneumatic broaching device until a tight fit was obtained with good rotational control of the femur. A trial standard 125 degree neck was inserted along with a +1.5 trial head. The leg was brought out of extension and adduction and then reduced with traction and internal rotation. The leg was stable anteriorly in a position of 30 degrees of extension and 90 degrees of external rotation. Fluoroscopy was used to ensure there was no fracture and the stem was seated well. Leg lengths were checked with an AP pelvis and pelvic reference points. Financuba navigation system was used to confirm appropriate positioning and leg length and offset. Once content with the desired offset and leg lengths, the leg was brought back into extension, external rotation and adduction. The periosteum and surrounding tissue was injected with remaining portion of the xavier-articular cocktail. The proximal femur was irrigated as well as the deep tissues. The Depuy Cor[place] standard 125 degree collared stem, size 12, was then manually inserted into the proximal femur making sure to control rotation. It was then malleted into position with light blows, giving breaks to allow bone expansion and decrease risk of fracture. The selected Depuy Altrx Ceramic Head, size 32+5mm, was then placed onto the clean and dry trunnion and secured with impaction onto the tapered fit. The leg was brought back out of extension and adduction and reduced with traction and internal rotation. Stability was confirmed with no shuck at 90 degrees of external rotation and 30 degrees of extension. No impingement through range of motion arc. Final x-ray images were obtained with fluoroscopy to confirm adequate positioning and no intraoperative fracture. The deep tissues were thoroughly irrigated with Surgiphor, betadine solution. This was allowed to sit in the wound for 3 minutes before being thoroughly irrigated out with normal saline. The capsule was then reapproximated with the previously placed Ethibond sutures. The TFL fascia was finally closed with a No. 2 Stratafix, barbed suture. Deep tissues were then reapproximated with 0 Vicryl and a running 2-0 Vicryl. The skin was closed with a running 4-0 Monocryl in a subcuticular fashion. This was reinforced with skin glue. A Mepilex silver dressing was applied. At the end of the case, all counts were correct. Kika was transferred to the hospital bed without difficulty and suffering no apparent complication. She has a good prognosis. Physical therapy will start today and without restrictions, weight-bearing as tolerated. Aspirin 81mg BID will be used for DVT prophylaxis.
[2023-05-31] MEDS: Normal Saline 10 ML VIAL IJ (12:10)
[2023-05-31] MEDS: HYDROmorphone 2 MG/ML SYR 0.5 MG IVP (12:10)
--- NOTE | 2023-05-31 12:43 | W.ANESPOSTOP ---
Postoperative Evaluation Date, Time and Location Date Performed: 05/31/23 Time Performed: 12:43 Patient Location: PACU Vital Signs Most Recent Imported Vital Signs: Most Recent Vital Signs Temp Pulse Resp BP Pulse Ox 36.5 C 63 15 139/90 99 05/31/23 12:35 05/31/23 12:35 05/31/23 12:35 05/31/23 12:35 05/31/23 12:35 Pain Score Most Recent Pain Score: Most Recent Pain Score Pain Level 8 05/31/23 12:35 Assessment Mental Status: Awake (Alert & Oriented to Patient Baseline) Airway and Respiratory Function: Patent airway with normal (patient baseline) respiratory exam Cardiovascular Function: Hemodynamically Stable Hydration Status: Adequately Hydrated Nausea & Vomiting: No Nausea or Vomiting Pain: Pain is Moderate or Severe (Lower back pain) Postoperative Pain Management: Pain being addressed with medication Peripheral Nerve Block: Patient did not receive a nerve block
[2023-05-31] MEDS: traMADol 50 MG TAB PO (13:15)
--- NOTE | 2023-05-31 16:22 | PT.INIE ---
Date of service: 05/31/23 Time of Service: 10:59 PT Notes Visit Reasons: Left Hip DJD Physical Therapy Day Surgery Initial Evaluation Date: 05/31/2023 Referring Doctor: Patrick Diaz MD PT Orders: PT CONSULT: S/P Ortho surgery. S/P L TEETEE Precautions: WBAT on the left LE with AD. Patient Profile/Admitting Diagnosis: Kika is an 82-year-old female with degenerative joint disease of the left hip and is status post left total hip arthroplasty on postoperative day 0. PMHX: All Active Problems? Degenerative joint disease of left hip (Acute) Loose stools (Acute) AM, with regular BMs afterwards .. Hx immodium only with watery stools. 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 DEXA 12/2012 T-1.9 hip, T-1.8 spine; -3.0 R wrist; FRAX 50.7/35.6 ; h/o bisphosphonates after L wrist fx; LifeStyle:? [employer] ([employer] balance training. Impaired fasting glucose (Acute) Medical History? Diverticulosis (09/01/16) Found on colonoscopy HTN (hypertension) Stress due to illness of family member Tubular adenoma of colon (04/21/11) colo 2016 tubular adenoma colo 2020 clear/negative Uterine fibroid Dr. Felix [employer]/[facility] Surgical History?(Updated 10/03/21 @ 01:36 by Nina Herrera MD) Cataracts, bilateral colonoscopy (08/31/16) Cortical cataract of left eye Nuclear sclerotic cataract of left eye Nuclear sclerotic cataract of right eye S/P bilateral cataract extraction (~04/2021) S/P total hysterectomy (07/16/21) w/ rgt salpingo-oophorectomy, left oophorectomy Jai Felix MD [facility] Tonsillectomy and adenoidectomy pt. states just her tonsills were removed NOT adenoids Social History/Home Situation: Lives with in a private home with 3-4 steps to enter with a rail on one side. Hwasfoca-st-xyu who is a physical therapist and her son will be available at home as well to provide needed assistance for patient. 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 Equipment Owned/DME: SPC, walking stick Subjective: Reports 1-2/10 pain in the left hip. Denies chest pain, headache, and lightheadedness throughout session. Objective: General Observation: Supine in bed. Mepilex Ag over surgical incision. TEDS to be legs. Mental Status: Alert and oriented x4 Pain: As above ROM: Right Lower Extremity: Hip flexion WFL. Hip abduction WFL. Knee flexion WFL. Ankle dorsiflexion WFL. Ankle plantarflexion WFL. Left Lower Extremity: Hip flexion WFL. Hip abduction WFL. Knee flexion WFL. Ankle dorsiflexion WFL. Ankle plantarflexion WFL. Strength: Right Lower Extremity: Hip flexors 5/5. Hip abductors 5/5. Knee flexors 5/5. Knee extensors 5/5. Ankle dorsiflexors 5/5. Ankle plantarflexors 5/5. Left Lower Extremity:Hip flexors 4-/5. Hip abductors 4-/5. Knee flexors 5/5. Knee extensors 4-/5. Ankle dorsiflexors 5/5. Ankle plantarflexors 5/5. Sensation: Intact as to pain in bilateral lower extremities Bed Mobility/Transfers: Supine to sit standby assist Sit to stand contact-guard assist Stand to sit standby assist Bed to chair standby assist Gait: Tolerated level surface ambulation of 150 feet using front wheeled walker with step through gait pattern requiring standby assist with no report of increased pain in the left hip. No L OB. No SOB. Stairs: Ascended and descended 3 x 4 inch steps and 2 x 6 inch steps while holding onto bilateral rails with step to gait pattern requiring only standby assist. Balance: Static Sitting: Normal Dynamic Sitting: Normal Static Standing: Fair Dynamic Standing: Fair Special Tests: Mobility Limitations Standardized Measure [facility] 6 clicks Basic Mobility Inpatient Short Form: Raw Score: 23 CMS Score: 11% deficit Informed Consent/Education: Patient instructed in purpose of PT consult. Packet containing TEETEE exercise protocol has been given to patient. Education and training on initial set of exercises that can be done at home have been completed with patient. Access Code: [email or web address] URL: [email or web address] Date: 05/31/2023 Prepared by: Sandhya Boateng Exercises - Gluteal Sets - 1 x daily - 7 x weekly - 1 sets - 10 reps - 5 hold - Supine Heel Slide - 1 x daily - 7 x weekly - 1 sets - 10 reps - 5 hold - Supine Ankle Pumps - 1 x daily - 7 x weekly - 1 sets - 10 reps - 5 hold - Seated March - 1 x daily - 7 x weekly - 1 sets - 10 reps - 5 hold - Seated Long Arc Quad - 1 x daily - 7 x weekly - 1 sets - 10 reps - 5 hold Assessment: Kika requires the use of front wheeled walker to maximize independence and reduce fall risk at home. Patient presents with clinical signs and symptoms consistent with current/admitting diagnoses that have resulted to mobility limitations, gait instability, generalized weakness, and impairment of motor control as demonstrated by the following impairment level findings: 1. Decreased strength to left hip major muscle groups 2. Impaired standing balance Impairments are contributing to the following functional limitations: 1. Inability to safely ambulate without assistive device 2. Increase completion time for mobility ADL performance 3. Increased fall risk Patient is assessed as a 93126 moderate complexity based on the following: History: 82-year-old female with impairment level findings, functional limitations, and past medical history as indicated above Examination: Demonstrable impairment in strength, balance, and mobility level with underlying impairments and functional limitations as documented above Presentation: Evolving Decision Makin moderate complexity Goals: N/A. PT evaluation and 1-2 treatment sessions only for functional mobility training using recommended AD and for HEP instruction. Plan of Care/Treatment Plan: N/A. PT evaluation and 1-2 treatment session only for functional mobility training using recommended AD and for HEP instruction. DISCHARGE RECOMMENDATIONS: Home when medically cleared by orthopedic surgeon. Recommend outpatient PT services in order to optimize functional mobility outcomes and facilitate return to independent community ambulation without an assistive device. TREATMENT CODE/TIME: 12329 x 20 minutes, 9753 0 x 29 minutes beginning at 13:45 PM. Thank you for the opportunity to participate in the care of this patient. Sandhya Boateng PT, DPT, CLT [facility] [place], [place]
== END 2023-05-31 14:55 | disposition home or self-care (01) ==
PROVIDERS: PCP Student in an Organized Health Care Education/Training Program; Visit Provider Student in an Organized Health Care Education/Training Program
PROC: (CPT 27130; principal; 2023-05-31 10:30)
DX: M16.12 Unilateral primary osteoarthritis, left hip (principal); G57.02 Lesion of sciatic nerve, left lower limb; R73.01 Impaired fasting glucose
CPT/HCPCS: 27130; 20985; C1776; 97162; 97530; 73501; J0690; J1170; J2001; J2371; J2405; J2704

== ENCOUNTER 2023-06-15 11:17 | Outpatient (CLI) | payer MEDICARE, SELFPAY ==
--- NOTE | 2023-06-15 11:50 | DI.RAD_ITS ---
Exam(s) XR HIP LT COMPLETE AP PELVIS EXAM: XR HIP LT COMPLETE AP PELVIS CLINICAL HISTORY: L THR. TECHNIQUE: 2D digital imaging was performed. COMPARISON: CR XR PELVIS AP from 03/23/2023 XA XR HIP LT IN OR from 05/31/2023 FINDINGS: 3 views There has been interval left hip arthroplasty on 05/31/2023. There is a E displaced fracture of the superior aspect of the greater trochanter now evident. Fractu re fragment measures 1.6 x 1.8 cm and is located superiorly. There does not appear to be prominent l oosening of the femoral stem component and the acetabular cup appears stable. Significant degenerative changes are also noted in the opposite-right hip. IMPRESSION: There is a displaced fracture of the superior aspect of the left greater trochanter now evident. DATA REPOSITORY: RADIATION DOSE DELIVERED:
== END 2023-06-15 11:18 | disposition home or self-care (01) ==
LOC: DIORS 11:18
PROVIDERS: PCP Student in an Organized Health Care Education/Training Program; Referring Provider Student in an Organized Health Care Education/Training Program; Visit Provider Student in an Organized Health Care Education/Training Program
DX: Z96.642 Presence of left artificial hip joint (principal); Z47.1 Aftercare following joint replacement surgery; M96.662 Fracture of femur following insertion of orthopedic implant, joint prosthesis, or bone plate, left leg
CPT/HCPCS: 73502

== ENCOUNTER 2023-06-28 21:12 | Inpatient (IN) | payer MEDICARE, SELFPAY ==
[2023-06-28] VITALS (24 sets, daily range): BP systolic 172–179; BP diastolic 94–105; PULSE 73–95; RESP 12–24; TEMP 37; O2SAT 96–98
--- NOTE | 2023-06-28 21:15 | DI.CT_ITS ---
Exam(s) CT HEAD WO EXAM: CT HEAD WO CLINICAL HISTORY: confused, COVID +. TECHNIQUE: Imaging Protocol: Axial computed tomography images with coronal and sagittal reformatted images were created and reviewed COMPARISON: No exams were available for comparison FINDINGS: Ventricles and Extra axial spaces: Normal in size and morphology for the patient's age. Hemorrhage: None. Cerebral parenchyma: There is no acute territorial infarct. There are a few areas of decreased atten uation in the white matter consistent with small vessel ischemic disease. Midline shift: None. Brainstem/Cerebellum: Normal. Calvarium: Normal. Visualized Paranasal sinuses/Mastoids: Clear. Soft Tissues: Unremarkable. IMPRESSION: No acute intracranial process. RADIATION DOSE DELIVERED: 583.4mGy.cm Total DLP DATA REPOSITORY: All CT scans at this facility are submitted to the National Radiology Data Registry (NRDR) Dose Index Registry (DIR) with the [employer] (A[employer]). RADIATION OPTIMIZATION: All CT scans at this facility use at least one of these dose optimization te chniques: automated exposure control; mA and/or kV adjustment per patient size (includes targeted exa ms where dose is matched to clinical indication); or iterative reconstruction.
--- NOTE | 2023-06-28 21:15 | DI.RAD_ITS ---
Exam(s) XR PORTABLE CHEST AP EXAM: XR PORTABLE CHEST AP CLINICAL HISTORY: cough, covid+ TECHNIQUE: 2D digital imaging was performed of the chest. One image was obtained. An AP view was ob tained. COMPARISON: No exams were available for comparison FINDINGS: MEDIASTINUM: Normal. HEART: Upper limits of normal in size. PULMONARY VASCULATURE: Normal. LUNGS: Clear. PLEURAL SPACE: No pleural effusion or pneumothorax. BONE:Within normal limits for the patient's age. OTHER FINDINGS:Normal. IMPRESSION: No acute pulmonary findings. DATA REPOSITORY: RADIATION DOSE DELIVERED:
--- NOTE | 2023-06-28 21:43 | ED.GENADUL_ITS ---
Discharge Plan Disposition Patient Disposition: Admit to [facility] Discharge Details Clinical Impression: Acute hyponatremia, Acute hypokalemia, COVID-19 Primary Care Provider: Ofelia Mcmahon ED Provider: Jim Smallwood Home Meds and New Rx's Prescriptions: No Action PreserVision AREDS-2 [id number]-mg capsule 1 tab PO DAILY omega-3 fatty acids [Fish Oil Concentrate] 1,000 mg capsule 1,000 mg PO DAILY multivitamin [Daily Multi-Vitamin] 1 EACH tablet 1 ea PO DAILY calcium carbonate-vitamin D3 1 EACH tablet 1 ea PO DAILY hydrochlorothiazide 12.5 mg capsule 12.5 mg PO DAILY Qty: 90 3RF Rx Instructions: to lower BP under 140/85 Glucosamine-Chondroitin 3X 750-600 mg tablet 2 tab PO DAILY tramadol 50 mg tablet 50 mg PO BID PRN (Reason: severe postoperative pain) Qty: 10 0RF Rx Instructions: Take one tablet up to twice a day as needed Paxlovid 300 mg (150 mg x 2)-100 mg tablets,dose pack 1 dose pk PO BID 5 Days Qty: 30 0RF Rx Instructions: Please dispense 1 pack. celecoxib 200 mg capsule 200 mg PO BID PRN (Reason: pain) Qty: 60 1RF aspirin 81 mg tablet,delayed release (DR/EC) 81 mg PO BID Qty: 60 0RF pantoprazole 40 mg tablet,delayed release (DR/EC) 40 mg PO DAILY Qty: 30 0RF acetaminophen 500 mg tablet 1,000 mg PO Q8H PRN PRN (Reason: pain) 30 Days Qty: 90 0RF Rx Instructions: take 2 tablets by mouth every 8 hrs as needed for pain Medical Decision Making 82-year-old female with a past medical history of recent COVID-19 infection diagnosed on Monday, who is currently taking Paxlovid, presents today via EMS for evaluation of confusion. Family states that the patient was doing well and then this evening at around dinner she was quite confused, notably weak. Symptoms continued for the next few hours, and did not improve. EMS was called and the patient was brought to the ER for further assessment. Patient denies any complaints at this time, however she does seem pleasantly quiet and confused. She denies any chest pain abdominal pain vomiting or diarrhea. No other complaints at this time. No other modifying factors. Physical exam demonstrates clear lung sounds, nondistended abdomen, moist mucous membranes. Concern for intracranial etiology, electrolyte abnormality, or symptoms secondary to COVID. Will gently rehydrate, monitor closely and reassess 10:51 PM Laboratory workup is returned, patient demonstrates normal white count, mild lymphopenia consistent with COVID, lactate is elevated 2.7, sodium is notably low at 112, potassium slightly low at 3.2, chloride 77, anion gap 12. Calcium slightly low at 7.8. Albumin normal. Concerned that this hyponatremia is causing her symptoms. An initial 500 cc fluid bolus was started when she arrived. Will slowly continue this. Will give slow potassium as well. Patient will be admitted. Discussed the case with Dr. Vegas. I have extensively reviewed the treatment plan with the patient. I have addressed all patient concerns at this time. I have also discussed the plan with the admitting physician and they agree with the current assessment and plan and have agreed to assume responsibility for the patient. All parties demonstrate verbal understanding and agreement with our assessment and plan at this time. The documentation in this chart was dictated using [employer] dictation software. Please excuse any dictation errors. FINDINGS: Brain: Mild volume loss No hemorrhage. Mild white matter disease. No mass effect. Cerebral ventricles: No ventriculomegaly. Paranasal sinuses: Visualized sinuses are unremarkable. No fluid levels. Mastoid air cells: Visualized mastoid air cells are well aerated. Bones/joints: Unremarkable. No acute fracture. Soft tissues: Unremarkable. IMPRESSION: No acute intracranial abnormality. Thank you for allowing us to participate in the care of your patient. Dictated and Authenticated by: Philip Lee MD 06/28/2023 10:29 PM Eastern Time ([place]) FINDINGS: Lungs: Unremarkable. No consolidation. Pleural spaces: Unremarkable. No pleural effusion. No pneumothorax. Heart/Mediastinum: Cardiomegaly and tortuous aorta. Bones/joints: Severe degenerative changes in the left shoulder IMPRESSION: No acute findings. Thank you for allowing us to participate in the care of your patient. Dictated and Authenticated by: Philip Lee MD 06/28/2023 10:30 PM Eastern Time ([place] & [place]) HPI General Date/Time Provider Initiated Documentation: 06/28/23 21:15 . HPI Narrative: 82-year-old female with a past medical history of recent COVID-19 infection diagnosed on Monday, who is currently taking Paxlovid, presents today via EMS for evaluation of confusion. Family states that the patient was doing well and then this evening at around dinner she was quite confused, notably weak. Symptoms continued for the next few hours, and did not improve. EMS was called and the patient was brought to the ER for further assessment. Patient denies any complaints at this time, however she does seem pleasantly quiet and confused. She denies any chest pain abdominal pain vomiting or diarrhea. No other complaints at this time. No other modifying factors. Related Data Home Medications Medication Instructions Recorded Confirmed calcium carbonate 600 mg-vitamin 1 ea PO DAILY 10/23/15 06/15/23 D3 5 mcg (200 unit) tablet multivitamin (Daily Multi-Vitamin 1 ea PO DAILY 10/23/15 06/15/23 tablet) omega-3 fatty acids 1,000 mg 1,000 mg PO DAILY 04/09/19 06/15/23 capsule (Fish Oil Concentrate) vit C 250 mg-vit E 90 mg-zinc 40 1 tab PO DAILY 04/09/19 06/15/23 mg-copper 1 [id number] capsule (PreserVision AREDS-2) hydrochlorothiazide 12.5 mg capsule 12.5 mg PO DAILY #90 tab-caps 10/03/22 06/15/23 glucosamine sulf 2 tab PO DAILY 10/25/22 06/15/23 sod.chlor-chondroitn sulf sodium 750 mg-600 mg tablet (Glucosamine-Chondroitin 3X) aspirin 81 mg tablet,delayed 81 mg PO BID #60 tabs 05/31/23 06/15/23 release celecoxib 200 mg capsule 200 mg PO BID PRN pain #60 caps 05/31/23 06/15/23 pantoprazole 40 mg tablet,delayed 40 mg PO DAILY #30 tabs 05/31/23 06/15/23 release acetaminophen 500 mg tablet 1,000 mg PO Q8H PRN PRN pain 30 06/01/23 06/15/23 days #90 tabs tramadol 50 mg tablet 50 mg PO BID PRN severe 06/09/23 06/15/23 postoperative pain #10 tabs nirmatrelvir 300 mg (150 mg 1 dose pk PO BID 5 days #30 tabs 06/26/23 x2)-ritonavir 100 mg tablet,dose pack (Paxlovid) Previous Rx's Medication Instructions Recorded hydrochlorothiazide 12.5 mg capsule 12.5 mg PO DAILY #90 tab-caps 10/03/22 aspirin 81 mg tablet,delayed 81 mg PO BID #60 tabs 05/31/23 release celecoxib 200 mg capsule 200 mg PO BID PRN pain #60 caps 05/31/23 pantoprazole 40 mg tablet,delayed 40 mg PO DAILY #30 tabs 05/31/23 release acetaminophen 500 mg tablet 1,000 mg PO Q8H PRN PRN pain 30 06/01/23 days #90 tabs tramadol 50 mg tablet 50 mg PO BID PRN severe 06/09/23 postoperative pain #10 tabs nirmatrelvir 300 mg (150 mg 1 dose pk PO BID 5 days #30 tabs 06/26/23 x2)-ritonavir 100 mg tablet,dose pack (Paxlovid) Allergies Allergy/AdvReac Type Severity Reaction Status Date / Time sulfamethoxazole Allergy Unknown unknown Verified 06/15/23 11:13 [From Bactrim] trimethoprim [From Bactrim] Allergy Unknown unknown Verified 06/15/23 11:13 amlodipine AdvReac Intermediate shoulder Verified 06/15/23 11:13 pain, fatigue General Stated Complaint: AMS/LOC ALESSANDRA: 2 Review of Systems All systems reviewed & are unremarkable except as noted in HPI and below PFSH All Active Problems (Updated 06/28/23 @ 22:53 by Jim Smallwood DO) Acute hyponatremia (Acute) Acute hypokalemia (Acute) COVID-19 (Acute) COVID (Acute ~06/24/23) History of total left hip replacement (Acute 05/31/23) Loose stools (Acute) AM, with regular BMs afterwards .. Hx immodium only with watery stools. 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 DEXA 12/2012 T-1.9 hip, T-1.8 spine; -3.0 R wrist; FRAX 50.7/35.6 ; h/o bisphosphonates after L wrist fx; LifeStyle: [employer] balance training. Impaired fasting glucose (Acute) x1, WNL otherwise Medical History Cellulitis of face Tick bite (dog tick) Diverticulosis (09/01/16) Found on colonoscopy Facial swelling Stress due to illness of family member Tick bite Dog tick Tubular adenoma of colon (04/21/11) colo 2015 tubular adenoma colo 2020 clear/negative Uterine fibroid Dr. Felix SENIOR GIS ANALYST/[facility] Surgical History Cataracts, bilateral colonoscopy (08/31/16) Cortical cataract of left eye Nuclear sclerotic cataract of left eye Nuclear sclerotic cataract of right eye S/P bilateral cataract extraction (~04/2021) S/P total hysterectomy (07/16/21) w/ rgt salpingo-oophorectomy, left oophorectomy..Jai Felix MD [facility] Tonsillectomy and adenoidectomy pt. states just her tonsills were removed NOT adenoids Family History Mother , Stroke at age 93. No problems noted. Brother No problems noted. Social History Smoking/Tobacco Use Status: Never Smoking risk assessment performed?: Yes Alcohol Intake: current Alcohol Intake frequency: 0-2 drinks per day Alcohol type: wine Details: 4oz of wine daily with dinner. 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 Pets and animals: Yes Pets and animals: dog(s) Sexually active: No Do you think of yourself as: straight/heterosexual Current gender identity: female What is your relationship status?: How often do you talk on the phone with friends or family?: three or more times per week How often do you get together with friends or relatives?: once per week Do you belong to any clubs or organized social groups?: yes Panel score (0-1 are the most socially isolated patients): 2 What type of physical activity do you participate in: walking Duration: 30-45 minutes/day Jeannette/Adventist: Evangelical Special jeannette needs: No Agree to transfusion: Yes Seatbelt use: always Helmet use: No Drive intox or ride w/intox bulk tank driver: No Working smoke detector in home: Yes Fire extinguisher in home: Yes Carbon monox detector in home: Yes Do you feel safe at home: Yes Do you feel safe in your relationship?: Yes Victim of physical abuse: No Victim of emotional abuse: No Victim of sexual abuse: No Exam Narrative Exam Narrative: 1.Const: Well-nourished, Well-developed, appearing stated age 2.Eyes: PERRL, no conjunctival injection, and symmetrical lids. 3.ENT: Atraumatic external nose and ears. Moist MM. Neck: Symmetric, trachea midline, No thyromegaly. 4.CVS: +S1/S2, No murmurs or gallops. Peripheral pulses 2+ and equal in all extremities. Brisk capillary refill in all extremities. 5.RESP: Unlabored respiratory effort. Clear to auscultation bilaterally. No wheezes rales or rhonchi 6.GI: Soft, Nontender/Nondistended, No hepatosplenomegaly. No guarding or rebound. 7.MSK: Normocephalic/Atraumatic, Extremities w/o deformity or ttp No cyanosis or clubbing, Normal movement of all extremities 8.Skin: Warm, Dry. No rashes or lesions. 9.Neuro: glue spreader II-XII grossly intact. Sensation grossly intact, no focal neurologic deficits. 10.Psych: (AAO) x1. Appropriate mood and affect Course Vital Signs Vital signs: Vital Signs Temperature 37.0 C 06/28/23 21:14 Pulse 84 06/28/23 21:14 Respiratory Rate 16 06/28/23 21:14 Blood Pressure 178/105 H 06/28/23 21:14 Pulse Oximetry 97 06/28/23 21:14 Temperature 37.0 C 06/28/23 21:14 Temperature Source Oral 06/28/23 21:14 Pulse 84 06/28/23 21:14 Respiratory Rate 18 06/28/23 21:36 Respiratory Effort Normal 06/28/23 21:36 Respiratory Depth Normal 06/28/23 21:36 Respiratory Pattern Normal 06/28/23 21:36 Blood Pressure 178/105 H 06/28/23 21:14 Blood Pressure Position Sitting 06/28/23 21:14 Pulse Oximetry 97 06/28/23 21:14 Oxygen Delivery Method Nasal Cannula 06/28/23 21:14 Oxygen Flow Rate 2 06/28/23 21:14 Pain Level 0 06/28/23 21:14
[2023-06-28] MEDS: Normal Saline 500 ML IV (21:45)
[2023-06-28 21:46] LABS: Abs Immature Grans 0.01 10^3/uL (0.0-0.06); Absolute Lymphocyte Count 0.63 10^3/uL (1.2-3.4); Absolute Monocyte Count 0.39 10^3/uL (0.1-0.8); Absolute Neutrophil Count 2.32 10^3/uL (1.2-6.7); HCT 31.4 % (36.0-46.0); HGB 11.6 g/dL (11.2-15.7); Immature Grans % 0.3; Lymphocytes % 18.8; MCH 31.8 pg (27.0-33.0); MCHC 36.9 % (32.0-36.0); MCV 86 fL (80-95); MPV 9.6 fL (8.0-11.0); Monocytes % 11.6; Neutrophils % 69.3; Platelet Count 190 10^3/uL (130-400); RBC 3.65 10^6/uL (3.93-5.22); RDW 11.9 % (11.7-14.6); RDW-SD 37.8 fL; WBC 3.35 10^3/uL (4.4-10.8)
[2023-06-28 21:52] LABS: BE (Venous) 0 mmol/L (-2-3); HCO3 (Venous) 23 mmol/L (23-28); pCO2 (Venous) 28 mmHg (41-51); pH (Venous) 7.51 (7.31-7.41); pO2 (Venous) 163 mmHg
[2023-06-28 21:53] LABS: O2 Sat (Venous) > 99 %
[2023-06-28 21:55] LABS: ALT 29 U/L (14-59); AST 28 U/L (15-37); Albumin 3.7 g/dL (3.4-5.0); Alkaline Phosphatase 108 U/L (46-116); Anion Gap 12.4 mmol/L (3-11); BUN 8 mg/dL (7-18); Bilirubin, Total 0.7 mg/dL (0.2-1.0); CO2 22.6 mmol/L (21.0-32.0); CREATININE 0.6 mg/dL (0.55-1.02); Calcium 7.8 mg/dL (8.5-10.1); Chloride 77 mmol/L (98-107); Estimated GFR 89.01 (mL/min/1.73m2); Glucose 173 mg/dL (74-106); Lactate 2.7 MMOL/l (0.9-1.7); Potassium 3.2 mmol/L (3.5-5.1); Total Protein 6.9 g/dL (6.4-8.2)
[2023-06-28 22:00] LABS: Sodium 112 mmol/L (136-145)
--- NOTE | 2023-06-28 22:30 | DI.VRAD_ITS ---
PROCEDURE INFORMATION: Exam: XR Chest Exam date and time: 06/28/2023 10:19 PM Age: 82 years old Clinical indication: Other: Confused, covid +; Additional info: Confused, covid + TECHNIQUE: Imaging protocol: Radiologic exam of the chest. Views: 1 view. COMPARISON: No relevant prior studies available. FINDINGS: Lungs: Unremarkable. No consolidation. Pleural spaces: Unremarkable. No pleural effusion. No pneumothorax. Heart/Mediastinum: Cardiomegaly and tortuous aorta. Bones/joints: Severe degenerative changes in the left shoulder IMPRESSION: No acute findings. Dictated and Authenticated by: Philip Lee MD. Ordering:THOMAS Fernandez MD
--- NOTE | 2023-06-28 22:30 | DI.VRAD_ITS ---
PROCEDURE INFORMATION: Exam: CT Head Without Contrast Exam date and time: 06/28/2023 10:16 PM Age: 82 years old Clinical indication: Other: Confused, covid +; Additional info: Confused, covid + TECHNIQUE: Imaging protocol: Computed tomography of the head without contrast. Radiation optimization: All CT scans at this facility use at least one of these dose optimization techniques: automated exposure control; mA and/or kV adjustment per patient size (includes targeted exams where dose is matched to clinical indication); or iterative reconstruction. COMPARISON: No relevant prior studies available. FINDINGS: Brain: Mild volume loss No hemorrhage. Mild white matter disease. No mass effect. Cerebral ventricles: No ventriculomegaly. Paranasal sinuses: Visualized sinuses are unremarkable. No fluid levels. Mastoid air cells: Visualized mastoid air cells are well aerated. Bones/joints: Unremarkable. No acute fracture. Soft tissues: Unremarkable. IMPRESSION: No acute intracranial abnormality. Dictated and Authenticated by: Philip Lee MD. Ordering:THOMAS Fernandez MD
[2023-06-28 23:11] LABS: Bilirubin Negative (Negative); Blood Trace-intact (Negative); Clarity Clear (Clear); Glucose 250 mg/dL (Negative); Ketones 15 mg/dL (Negative); Leukocyte Esterase Negative (Negative); Nitrite Negative (Negative); Specific Gravity 1.015 (1.005-1.025); Urobilinogen 0.2 mg/dL (Up to 0.2); pH 6.5 (5-8)
[2023-06-28 23:12] LABS: POTASSIUM,URINE RANDOM 30 mmol/L; Sodium, Urine 45 mmol/L
[2023-06-28 23:22] LABS: Bacteria Few HPF (Negative); C & S Indicated? No; Crystals Negative HPF (Negative); Epithelial Cells Few HPF (Negative); Mucus Negative (Negative); Other Cells Mod Transitional (Negative); WBC 0-2 HPF (0-5)
[2023-06-28] MEDS: POTASSIUM CHLORIDE 20 MEQ/100 ML BAG 50 MEQ IVPB (23:36)
[2023-06-29] VITALS (143 sets, daily range): BP systolic 133–213; BP diastolic 67–118; PULSE 64–108; RESP 10–25; TEMP 36.6–38; O2SAT 94–99
[2023-06-29 00:32] LABS: BUN 6 mg/dL (7-18); CREATININE 0.4 mg/dL (0.55-1.02); Calcium 7.7 mg/dL (8.5-10.1); Chloride 79 mmol/L (98-107); Estimated GFR 98.14 (mL/min/1.73m2); Glucose 130 mg/dL (74-106); Potassium 3.3 mmol/L (3.5-5.1)
[2023-06-29 00:34] LABS: Sodium 114 mmol/L (136-145)
[2023-06-29] MEDS: Normal Saline 500 ML IV (01:00)
--- NOTE | 2023-06-29 02:19 | ED.PROG_ITS ---
Date of service: 06/29/23 Time of Service: 02:00 Medical Decision Making Called by the hospitalist to perform a central line on the patient with hyponatremia to infuse hypertonic saline Medical Records Medical records reviewed: Yes I reviewed the patient's medical records. Procedures Central Line Placement Right IJ: Time Out Performed: Yes Patient Placed on Monitor/Pulse Ox: Yes MD Prep: mask, gown and gloves Central Line Prep: Chlorhexidine scrub and sterile drapes applied Local Anesthetic: Lidocaine 1% Amount of anesthesia used (mL): 3 Ultrasound Used for Placement: Yes Central Line Lumen Inserted: triple Post Procedure: good blood return, all ports aspirated, flushed, capped and sutured in place with 2-0 silk Post Procedure X-Ray: tip of catheter in good position Patient Tolerated Procedure: well Complications: none Additional Comments: Central visualized with the ultrasound machine after placement normal pleural sliding after placement on the right hemithorax and right ventricle visualized after infusion of normal saline with bubbles in the right ventricle which means that the central catheter is placed adequately. Discharge Plan Disposition Patient Disposition: Admit to [facility] Discharge Details Clinical Impression: Acute hyponatremia, Acute hypokalemia, COVID-19 Primary Care Provider: Ofelia Mcmahon ED Provider: Jim Smallwood Home Meds and New Rx's Prescriptions: No Action PreserVision AREDS-2 [id number]-mg capsule 1 tab PO DAILY omega-3 fatty acids [Fish Oil Concentrate] 1,000 mg capsule 1,000 mg PO DAILY multivitamin [Daily Multi-Vitamin] 1 EACH tablet 1 ea PO DAILY calcium carbonate-vitamin D3 1 EACH tablet 1 ea PO DAILY hydrochlorothiazide 12.5 mg capsule 12.5 mg PO DAILY Qty: 90 3RF Rx Instructions: to lower BP under 140/85 Glucosamine-Chondroitin 3X 750-600 mg tablet 2 tab PO DAILY tramadol 50 mg tablet 50 mg PO BID PRN (Reason: severe postoperative pain) Qty: 10 0RF Rx Instructions: Take one tablet up to twice a day as needed Paxlovid 300 mg (150 mg x 2)-100 mg tablets,dose pack 1 dose pk PO BID 5 Days Qty: 30 0RF Rx Instructions: Please dispense 1 pack. celecoxib 200 mg capsule 200 mg PO BID PRN (Reason: pain) Qty: 60 1RF aspirin 81 mg tablet,delayed release (DR/EC) 81 mg PO BID Qty: 60 0RF pantoprazole 40 mg tablet,delayed release (DR/EC) 40 mg PO DAILY Qty: 30 0RF acetaminophen 500 mg tablet 1,000 mg PO Q8H PRN PRN (Reason: pain) 30 Days Qty: 90 0RF Rx Instructions: take 2 tablets by mouth every 8 hrs as needed for pain POCUS Exam (ED) Limited Vascular Exam DATE OF EXAM: 06/29/23 TIME OF EXAM: 02:20 PROVIDER THAT PERFORMED THE STUDY: Jb Cabrera IS THIS A REPEAT EXAM DURING THIS ENCOUNTER: No DIFFERENTIAL DIAGNOSES: Internal jugular vein on the right localized for triple lumen catheter placement. Catheter was visualized and documented in the ultrasound machine infusion of normal saline bolus was visualized on the right atrium and right ventricle and normal pleural sliding after the procedure
[2023-06-29 03:26] LABS: Anion Gap 11.5 mmol/L (3-11); BUN 5 mg/dL (7-18); CO2 22.5 mmol/L (21.0-32.0); CREATININE 0.2 mg/dL (0.55-1.02); Calcium 7.5 mg/dL (8.5-10.1); Chloride 82 mmol/L (98-107); Estimated GFR 115.99 (mL/min/1.73m2); Glucose 114 mg/dL (74-106); Potassium 3.4 mmol/L (3.5-5.1)
[2023-06-29] MEDS: SODIUM CHLORIDE 3% 500 ML 75 ML IV (03:26)
[2023-06-29 03:32] LABS: Sodium 116 mmol/L (136-145)
--- NOTE | 2023-06-29 03:32 | W.PM.HP.N ---
Date of service: 06/29/23 Time of Service: 03:32 Assessment and Plan Assessment and plan (1) Acute hyponatremia: Status: Acute Assessment and plan: Severe hyponatremia developing in the setting of COVID, associated with mental status changes. She was mildly dehydrated and her hyponatremia did improve with normal saline, but with urgency hypertonic saline is indicated. Initially I ordered 100ml/hr for acute, but reviewing the definition this is actually chronic because we don't have a documented normal in the past 48 hours. Infusion changed to 30/hr. She is likely at risk for over-correction so I will use DDAVP clamp. Continue to follow Na closely. COVID-19 like other respiratory infections can cause hyponatremia, and some hypovolemia likely contributing. I did find a case series of severe hyponatremia in patients treated with Paxlovid. We don't have hard data but this is the only new medication so it is a likely culprit. I will hold it given she does not have severe disease. (2) Acute hypokalemia: Status: Acute Assessment and plan: Improved after intial bolus, but not normal. Will repeat supplument and follow. (3) COVID-19: Status: Acute Assessment and plan: As above she has mild disease, no hypoxia. Given risk of hyponatremia higher than COVID right now, I am holding paxlovid. (4) Essential hypertension: Status: Acute Assessment and plan: Holding HCTZ given hyponatremia, but she should be able to resume when it corrects. (5) DVT prophylaxis: Status: Acute Assessment and plan: LMWH given COVID infection (6) Discharge planning issues: Status: Acute Assessment and plan: She is in the ICU for monitoring on hypertonic saline. I appreciate Dr. Cabrera placing the central line. History of Present Illness History of Present Illness Chief Complaint: Confusion Narrative: 82 yo F with history of HTN who was recently diagnosed with COVID-19 infection and started on Paxlovid on Monday, 2.5 days prior to presentation, presented to the emergency room today with confusion. Per the family, she was doing well until this evening around dinner when she was quite weak and confused. After a few hours without improvement, EMS was called. She was never in respiratory distress, did not have fevers, and did not have chest pain. She did not loose conciousness or have any trauma. She has not had vomiting or diarrhea. She hasn't been eating or drinking as much as usual. Other than paxlovid she has not had any new medications She is able to answer questions and denies complaints. She did admit she feels cloudy headed. . Review of Systems Constitutional Constitutional: Denies chills and Denies fever(s) Eyes Eyes: Denies change in vision and Denies irritation ENT Ears, Nose, Mouth, and Throat: Denies nasal congestion, Denies nasal discharge and Denies sore throat Cardiovascular Cardiovascular: Denies chest pain, Denies palpitations and Denies orthopnea Respiratory Respiratory: Denies cough, Denies excessive phlegm production and Denies wheezing Gastrointestinal Gastrointestinal: Denies abdominal pain, Denies heartburn, Denies diarrhea and Denies vomiting Genitourinary Genitourinary: Denies hematuria and Denies dysuria Integumentary/Breasts Skin/Breast: Denies rash and Denies skin ulcer Neurologic Neurologic: Denies localized weakness, Denies sensory deficit and Denies tremor(s) Psychiatric Psychiatric: Denies mood swings and Denies panic attacks Endocrine Endocrine: Denies palpitations Hematologic/Lymphatic Hematologic/Lymphatic: Denies easy bleeding Allergic/Immunologic Allergic/Immunologic: Denies wheezing PFSH All Active Problems (Updated 06/29/23 @ 04:18 by Reji Yo) Discharge planning issues (Acute) DVT prophylaxis (Acute) Acute hyponatremia (Acute) Acute hypokalemia (Acute) COVID-19 (Acute) COVID (Acute ~06/24/23) History of total left hip replacement (Acute 05/31/23) Loose stools (Acute) AM, with regular BMs afterwards .. Hx immodium only with watery stools. 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 DEXA 12/2012 T-1.9 hip, T-1.8 spine; -3.0 R wrist; FRAX 50.7/35.6 ; h/o bisphosphonates after L wrist fx; LifeStyle: [employer] balance training. Impaired fasting glucose (Acute) x1, WNL otherwise Medical History Cellulitis of face Tick bite (dog tick) Diverticulosis (09/01/16) Found on colonoscopy Facial swelling Stress due to illness of family member Tick bite Dog tick Tubular adenoma of colon (04/21/11) colo 2016 tubular adenoma colo 2020 clear/negative Uterine fibroid Dr. Felix [employer]/[facility] Surgical History Cataracts, bilateral colonoscopy (08/31/16) Cortical cataract of left eye Nuclear sclerotic cataract of left eye Nuclear sclerotic cataract of right eye S/P bilateral cataract extraction (~04/2021) S/P total hysterectomy (07/16/21) w/ rgt salpingo-oophorectomy, left oophorectomy..Jai Felix MD [facility] Tonsillectomy and adenoidectomy pt. states just her tonsills were removed NOT adenoids Family History Mother , Stroke at age 93. No problems noted. Brother No problems noted. Social History Smoking/Tobacco Use Status: Never Smoking risk assessment performed?: Yes Alcohol Intake: current Alcohol Intake frequency: 0-2 drinks per day Alcohol type: wine Details: 4oz of wine daily with dinner. 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 Pets and animals: Yes Pets and animals: dog(s) Sexually active: No Do you think of yourself as: straight/heterosexual Current gender identity: female What is your relationship status?: How often do you talk on the phone with friends or family?: three or more times per week How often do you get together with friends or relatives?: once per week Do you belong to any clubs or organized social groups?: yes Panel score (0-1 are the most socially isolated patients): 2 What type of physical activity do you participate in: walking Duration: 30-45 minutes/day Jeanntete/Gnosticism: Baptism Special jeannette needs: No Agree to transfusion: Yes Seatbelt use: always Helmet use: No Drive intox or ride w/intox 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 Working smoke detector in home: Yes Fire extinguisher in home: Yes Carbon monox detector in home: Yes Do you feel safe at home: Yes Do you feel safe in your relationship?: Yes Victim of physical abuse: No Victim of emotional abuse: No Victim of sexual abuse: No Meds Allergies and Home Medications Allergies Allergy/AdvReac Type Severity Reaction Status Date / Time sulfamethoxazole Allergy Unknown unknown Verified 06/29/23 02:41 [From Bactrim] trimethoprim [From Bactrim] Allergy Unknown unknown Verified 06/29/23 02:41 amlodipine AdvReac Intermediate shoulder Verified 06/29/23 02:41 pain, fatigue Home Medications Medication Instructions Recorded Confirmed Type calcium carbonate 600 mg-vitamin 1 ea PO DAILY 10/23/15 06/29/23 History D3 5 mcg (200 unit) tablet multivitamin (Daily Multi-Vitamin 1 ea PO DAILY 10/23/15 06/29/23 History tablet) omega-3 fatty acids 1,000 mg 1,000 mg PO DAILY 04/09/19 06/15/23 History capsule (Fish Oil Concentrate) vit C 250 mg-vit E 90 mg-zinc 40 1 tab PO DAILY 04/09/19 06/15/23 History mg-copper 1 [id number] capsule (PreserVision AREDS-2) hydrochlorothiazide 12.5 mg capsule 12.5 mg PO DAILY #90 tab-caps 10/03/22 06/29/23 Rx glucosamine sulf 2 tab PO DAILY 10/25/22 06/15/23 History sod.chlor-chondroitn sulf sodium 750 mg-600 mg tablet (Glucosamine-Chondroitin 3X) aspirin 81 mg tablet,delayed 81 mg PO BID #60 tabs 05/31/23 06/29/23 Rx release celecoxib 200 mg capsule 200 mg PO BID PRN pain #60 caps 05/31/23 06/29/23 Rx pantoprazole 40 mg tablet,delayed 40 mg PO DAILY #30 tabs 05/31/23 06/29/23 Rx release acetaminophen 500 mg tablet 1,000 mg PO Q8H PRN PRN pain 30 06/01/23 06/15/23 Rx days #90 tabs tramadol 50 mg tablet 50 mg PO BID PRN severe 06/09/23 06/29/23 Rx postoperative pain #10 tabs nirmatrelvir 300 mg (150 mg 1 dose pk PO BID 5 days #30 tabs 06/26/23 06/29/23 Rx x2)-ritonavir 100 mg tablet,dose pack (Paxlovid) nirmatrelvir 300 mg (150 mg 1 dose pk PO 06/29/23 06/29/23 History x2)-ritonavir 100 mg tablet,dose pack (Paxlovid) Exam Narrative Exam Narrative: GEN: Becomes alert after arousing, she is oriented x 3 but responds very slowly to all questions, pleasant and cooperative but not able to offer history. No acute distress at rest. HEENT: Head atraumatic. Conjunctiva clear, no icterus. PEERL, EOMI. no rhinorrhea. MMM, OP benign. Neck is supple with no masses or lymphadenopathy, trachea midline LUNGS: CTAB with normal effort CV: RRR with no murmurs, gallops, or rubs. ABD: +BS, soft, NT/ND EXT: no cyanosis, clubbing, or edema MSK: No joint redness or swelling NEURO: CN 2-12 grossly intact. Normal movement of 4 extremities. Normal speech and coordination SKIN: No rashes or open wounds. PSYCH: flat mood and affect Results Labs 06/28/23 21:31 06/29/23 03:04 Labs: Laboratory Results - last 24 hr 06/28/23 06/28/23 06/28/23 21:31 21:31 21:31 WBC 3.35 L RBC 3.65 L Hgb 11.6 Hct 31.4 L MCV 86 MCH 31.8 MCHC 36.9 H RDW 11.9 Plt Count 190 MPV 9.6 Immature Gran % 0.3 Neutrophils % 69.3 Lymphocytes % 18.8 Monocytes % 11.6 Eosinophils % 0.0 Basophils % 0.0 Nucleated RBC % 0.0 Absolute Neutrophils 2.32 Absolute Lymphocytes 0.63 L Absolute Monocytes 0.39 Absolute Eosinophils 0.00 Absolute Basophils 0.00 VBG pH VBG pCO2 VBG pO2 VBG HCO3 VBG Total CO2 VBG O2 Saturation VBG Base Excess VBG Lactate 2.7 H* Sodium 112 L* Potassium 3.2 L Chloride 77 L Carbon Dioxide 22.6 Anion Gap 12.4 H BUN 8 Creatinine 0.6 Est GFR (CKD-EPI 2020) 89.01 Glucose 173 H Serum Osmolality Calcium 7.8 L Total Bilirubin 0.7 AST 28 ALT 29 Alkaline Phosphatase 108 Total Protein 6.9 Albumin 3.7 Urine Color Urine Clarity Urine pH Ur Specific [place] Urine Protein Urine Ketones Urine Blood Urine Nitrite Urine Bilirubin Urine Urobilinogen Ur Leukocyte Esterase Urine RBC Urine WBC Ur Epithelial Cells Urine Crystals Urine Bacteria Urine Mucus Urine Other Ur Culture Indicated? Ur Random Sodium Ur Random Potassium Urine Glucose 06/28/23 06/28/23 06/28/23 21:31 22:58 22:58 WBC RBC Hgb Hct MCV MCH MCHC RDW Plt Count MPV Immature Gran % Neutrophils % Lymphocytes % Monocytes % Eosinophils % Basophils % Nucleated RBC % Absolute Neutrophils Absolute Lymphocytes Absolute Monocytes Absolute Eosinophils Absolute Basophils VBG pH 7.51 H VBG pCO2 28 L VBG pO2 163 VBG HCO3 23 VBG Total CO2 VBG O2 Saturation > 99 VBG Base Excess 0 VBG Lactate Sodium Potassium Chloride Carbon Dioxide Anion Gap BUN Creatinine Est GFR (CKD-EPI 2020) Glucose Serum Osmolality Calcium Total Bilirubin AST ALT Alkaline Phosphatase Total Protein Albumin Urine Color Yellow Urine Clarity Clear Urine pH 6.5 Ur Specific [place] 1.015 Urine Protein 30 H Urine Ketones 15 H Urine Blood Trace-intact H Urine Nitrite Negative Urine Bilirubin Negative Urine Urobilinogen 0.2 Ur Leukocyte Esterase Negative Urine RBC 3-5 H Urine WBC 0-2 Ur Epithelial Cells Few Urine Crystals Negative Urine Bacteria Few Urine Mucus Negative Urine Other Mod Transitional Ur Culture Indicated? No Ur Random Sodium 45 Ur Random Potassium 30 Urine Glucose 250 H 06/28/23 06/28/23 06/29/23 23:26 23:26 00:14 WBC RBC Hgb Hct MCV MCH MCHC RDW Plt Count MPV Immature Gran % Neutrophils % Lymphocytes % Monocytes % Eosinophils % Basophils % Nucleated RBC % Absolute Neutrophils Absolute Lymphocytes Absolute Monocytes Absolute Eosinophils Absolute Basophils VBG pH VBG pCO2 VBG pO2 VBG HCO3 VBG Total CO2 VBG O2 Saturation VBG Base Excess VBG Lactate Sodium Cancelled 114 L* Potassium Cancelled 3.3 L Chloride Cancelled 79 L Carbon Dioxide Cancelled 24.0 Anion Gap Cancelled 11.0 BUN Cancelled 6 L Creatinine Cancelled 0.4 L Est GFR (CKD-EPI 2020) Cancelled 98.14 Glucose Cancelled 130 H Serum Osmolality Cancelled Calcium Cancelled 7.7 L Total Bilirubin AST ALT Alkaline Phosphatase Total Protein Albumin Urine Color Urine Clarity Urine pH Ur Specific [place] Urine Protein Urine Ketones Urine Blood Urine Nitrite Urine Bilirubin Urine Urobilinogen Ur Leukocyte Esterase Urine RBC Urine WBC Ur Epithelial Cells Urine Crystals Urine Bacteria Urine Mucus Urine Other Ur Culture Indicated? Ur Random Sodium Ur Random Potassium Urine Glucose 06/29/23 03:04 WBC RBC Hgb Hct MCV MCH MCHC RDW Plt Count MPV Immature Gran % Neutrophils % Lymphocytes % Monocytes % Eosinophils % Basophils % Nucleated RBC % Absolute Neutrophils Absolute Lymphocytes Absolute Monocytes Absolute Eosinophils Absolute Basophils VBG pH VBG pCO2 VBG pO2 VBG HCO3 VBG Total CO2 VBG O2 Saturation VBG Base Excess VBG Lactate Sodium 116 L* Potassium 3.4 L Chloride 82 L Carbon Dioxide 22.5 Anion Gap 11.5 H BUN 5 L Creatinine 0.2 L Est GFR (CKD-EPI 2020) 115.99 Glucose 114 H Serum Osmolality Calcium 7.5 L Total Bilirubin AST ALT Alkaline Phosphatase Total Protein Albumin Urine Color Urine Clarity Urine pH Ur Specific [place] Urine Protein Urine Ketones Urine Blood Urine Nitrite Urine Bilirubin Urine Urobilinogen Ur Leukocyte Esterase Urine RBC Urine WBC Ur Epithelial Cells Urine Crystals Urine Bacteria Urine Mucus Urine Other Ur Culture Indicated? Ur Random Sodium Ur Random Potassium Urine Glucose Last Vital Signs Temp 37.0 C 06/28/23 21:14 Pulse 77 06/29/23 03:01 Resp 15 06/29/23 03:10 BP 169/92 H 06/29/23 03:01 Pulse Ox 96 06/29/23 03:10 Time Spent Time spent with Patient: >75 minutes Time was spent: preparing to see the patient(eg.review tests), obtaining and/or reviewing separately otained hiistory, ordering medications,tests, procedures, referring, communicating with other health care clinician and indepentently interpreting results
--- NOTE | 2023-06-29 03:51 | NUR.NOTE ---
Nursing Note:MD Yo called and gave order to titrate 3%NS down to 30mL an hour. RN changed rate from 75mL/hr to 30mL/hr.
[2023-06-29 08:35] LABS: BUN 4 mg/dL (7-18); CO2 23.8 mmol/L (21.0-32.0); CREATININE 0.4 mg/dL (0.55-1.02); Calcium 7.6 mg/dL (8.5-10.1); Chloride 80 mmol/L (98-107); Estimated GFR 98.14 (mL/min/1.73m2); Glucose 104 mg/dL (74-106); Potassium 3.1 mmol/L (3.5-5.1)
--- NOTE | 2023-06-29 08:46 | PDOC.CMIN ---
Date of service: 06/29/23 Time of Service: 08:46 Care Management Initial Assmt Initial Assessment REASON FOR HOSPITALIZATION:: Acute Hypokalemia and Covid PREVIOUS FUNCTIONAL STATUS/SOCIAL/FAMILY SUPPORTS:: Kkia lives alone in a single family home in [place]. She is recently . Kika has a son Samuel who lives in [place] and a daughter Mary who lives in [place]. Samuel and his Franny are very involved and supportive. 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 She is independent at baseline and does not receive any community services. CURRENT FUNCTIONAL STATUS:: In addition to hypokalemia and hyponatremia, Kika has Covid and is on isolation. She is also confused from the electrolyte imbalances (sodium is 112). CM was unable to speak to her but did have a phone conversation with her son Samuel. He described his mother as very active and independent. He reported that Kika had a total hip replacement on 05/31/23 and went home the same day. She did not require any home health services and is now ambulating independently with only occasional use of a cane. 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 Samuel's Franny plans to travel to [place] to be with Kika; she is expected to arrive sometime this evening. Her phone number is . ADVANCE DIRECTIVES:: none on file Has patient been provided with info about the portal/API?: Yes Did the patient sign up for the portal?: Yes CODE STATUS:: Full Code INSURANCE COVERAGE / FINANCIAL ISSUES:: Medicare /[facility] CURRENT HOME/COMMUNITY SERVICES/EQUIPMENT:: owns a cane and a walker but uses only occasionally PRIMARY CARE PHYSICIAN:: Ofelia Mcmahon POTENTIAL DISCHARGE NEEDS:: follow up appointment with PCP PATIENT/FAMILY EDUCATION NEEDS:: Review of discharge instructions, activity, diet, limitations, follow up plan, discuss [employer] Me [employer] TRANSPORTATION:: via private vehicle with family PLAN:: Kika will likely be discharged home with no new services when medically stable. She will follow up with her community providers and plan of care and transport with family. CM will follow and continue to assess for discharge needs. PFSH All Active Problems (Updated 06/29/23 @ 10:32 by Lissett Almendarez MD) Hypertension (Chronic) Lactate blood increase (Acute) Confusion (Acute) Hypocalcemia (Acute) Hypochloremia (Acute) Discharge planning issues (Acute) DVT prophylaxis (Acute) Acute hyponatremia (Acute) Acute hypokalemia (Acute) COVID-19 (Acute) COVID (Acute ~06/24/23) History of total left hip replacement (Acute 05/31/23) Loose stools (Acute) AM, with regular BMs afterwards .. Hx immodium only with watery stools. 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 DEXA 12/2012 T-1.9 hip, T-1.8 spine; -3.0 R wrist; FRAX 50.7/35.6 ; h/o bisphosphonates after L wrist fx; LifeStyle: [employer] balance training. Impaired fasting glucose (Acute) x1, WNL otherwise Medical History Cellulitis of face Tick bite (dog tick) Diverticulosis (09/01/16) Found on colonoscopy Facial swelling Stress due to illness of family member Tick bite Dog tick Tubular adenoma of colon (04/21/11) colo 2016 tubular adenoma colo 2020 clear/negative Uterine fibroid Dr. Felix [employer] SC[employer]ER HEL[employer]/[facility] Surgical History Cataracts, bilateral colonoscopy (08/31/16) Cortical cataract of left eye Nuclear sclerotic cataract of left eye Nuclear sclerotic cataract of right eye S/P bilateral cataract extraction (~04/2021) S/P total hysterectomy (07/16/21) w/ rgt salpingo-oophorectomy, left oophorectomy..Jai Felix MD [facility] Tonsillectomy and adenoidectomy pt. states just her tonsills were removed NOT adenoids Family History Mother , Stroke at age 93. No problems noted. Brother No problems noted. Social History Smoking/Tobacco Use Status: Never Smoking risk assessment performed?: Yes Alcohol Intake: current Alcohol Intake frequency: 0-2 drinks per day Alcohol type: wine Details: 4oz of wine daily with dinner. 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 Pets and animals: Yes Pets and animals: dog(s) Sexually active: No Do you think of yourself as: straight/heterosexual Current gender identity: female What is your relationship status?: How often do you talk on the phone with friends or family?: three or more times per week How often do you get together with friends or relatives?: once per week Do you belong to any clubs or organized social groups?: yes Panel score (0-1 are the most socially isolated patients): 2 What type of physical activity do you participate in: walking Duration: 30-45 minutes/day Jeannette/Scientology: Congregational Special jeannette needs: No Agree to transfusion: Yes Seatbelt use: always Helmet use: No Drive intox or ride w/intox 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
--- NOTE | 2023-06-29 09:24 | PUCC_ITS ---
General Date of Service Date of service: 06/29/23 Time of Service: 09:25 Reason for Admission to ICU: Hyponatremia Assessment and Plan Assessment and plan (1) Acute hyponatremia: Status: Acute (2) Acute hypokalemia: Status: Acute (3) COVID-19: Status: Acute (4) Hypochloremia: Status: Acute (5) Hypertension: Status: Chronic (6) Hypocalcemia: Status: Acute (7) Confusion: Status: Acute (8) Lactate blood increase: Status: Acute Assessment and plan: This is an 82 yo admitted to the ICU for hyponatremia in the setting of COVID and Paxlovid, both of which can cause hyponatremia. 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 She is stable, however her sodium has decreased on her last check, so the hypertonic infusion will be increased to 50. I did see the DDAVP order was for 1mcg q6h but I have changed this to 2mcg q8h. Recommendations Pulmonary: No acute concerns Cardiac: Hypertension - advise against strict BP control while in ICU - consider prn hydralazine/labetalol Renal: Hyponatremia - hypertonic saline increased from 30 to 50cc/hr - DDAVP changed from 1mcg q6h to 2mcg q8h - q4h electrolyte level ordered - if sodium continued to decrease would hold next DDAVP dose - strict I/O's Hypokalemia - replacement to 4.0 Lactate elevation - repeat to ensure decrease I&O: Intake & Output 06/26/23 06/27/23 06/28/23 06/29/23 23:59 23:59 23:59 23:59 Intake Total 1130 / 1130 Output Total 1800 / 1800 Balance -670 / -670 Weight 57.7 kg 54.3 kg Daily Fluid Goal:: positive to even GI Nutrition: Ok for normal diet with 1500cc fluid restriction Date of Last Bowel Movement: 06/28/23 Infectious Disease: COVID - stop Paxlovid - no treatment required currently Hematologic: No acute concerns Neurologic: Confusion - monitor for worsening - should improve with sodium improvement Endocrine: No acute concerns Lines: R IJ CVC Prophylaxis: PPI - home med No DVT ppx - recommend this be started Code Status: Full Subjective Critical and life-threatening events over the past 24 hours: This is an 82 yo admitted to the ICU for acute hyponatremia (baselines normal) in the setting of COVID. She was started on Paxlovid for her COVID on 06/26. She presented to the ED for confusion and found to have a sodium of 112 with a prior normal Na in April. She has no symptoms associated with her COVID (cough, dyspnea, etc). She did not have diarrhea or vomiting. She is a never smoker. She states at home she eats three good sized meals a day. She did have a urine sodium level of 45. A serum osmolality was also ordered. This morning she feels asymptomatic generally but is still confused. She had a CXR and head CT completed, both of which were normal. She was started on hypertonic saline infusion after a central line was placed in the ED as well as the DDAVP clamp to prevent over correction. She has been hypertensive during her ICU stay. Exam Narrative Exam Narrative: Gen: NAD, normal respiratory effort, well-nourished HENT: PERRL, dry oral mucosa Chest: No respiratory distress, normal appearance of chest, clear to auscultation bilaterally, no crackles or wheezes, normal inspiratory effort Heart: regular rate and rhythym, no murmurs, rubs or gallops Abdomen: Non-distended, soft, non tender Extremities: No clubbing, edema, cyanosis, rashes Neuro: mild confusion, AAOx2 Psych: cooperative, appropriate mental affect Most Recent VS/Results Last Vital Signs Temp 36.8 C 06/29/23 04:51 Pulse 78 06/29/23 08:01 Resp 18 06/29/23 09:00 BP 183/105 H 06/29/23 08:01 Pulse Ox 96 06/29/23 09:00 Laboratory Results - last 24 hr 06/28/23 06/28/23 06/28/23 21:31 21:31 21:31 WBC 3.35 L RBC 3.65 L Hgb 11.6 Hct 31.4 L MCV 86 MCH 31.8 MCHC 36.9 H RDW 11.9 Plt Count 190 MPV 9.6 Immature Gran % 0.3 Neutrophils % 69.3 Lymphocytes % 18.8 Monocytes % 11.6 Eosinophils % 0.0 Basophils % 0.0 Nucleated RBC % 0.0 Absolute Neutrophils 2.32 Absolute Lymphocytes 0.63 L Absolute Monocytes 0.39 Absolute Eosinophils 0.00 Absolute Basophils 0.00 VBG pH VBG pCO2 VBG pO2 VBG HCO3 VBG Total CO2 VBG O2 Saturation VBG Base Excess VBG Lactate 2.7 H* Sodium 112 L* Potassium 3.2 L Chloride 77 L Carbon Dioxide 22.6 Anion Gap 12.4 H BUN 8 Creatinine 0.6 Est GFR (CKD-EPI 2020) 89.01 Glucose 173 H Serum Osmolality Calcium 7.8 L Total Bilirubin 0.7 AST 28 ALT 29 Alkaline Phosphatase 108 Total Protein 6.9 Albumin 3.7 Urine Color Urine Clarity Urine pH Ur Specific [place] Urine Protein Urine Ketones Urine Blood Urine Nitrite Urine Bilirubin Urine Urobilinogen Ur Leukocyte Esterase Urine RBC Urine WBC Ur Epithelial Cells Urine Crystals Urine Bacteria Urine Mucus Urine Other Ur Culture Indicated? Ur Random Sodium Ur Random Potassium Urine Glucose 06/28/23 06/28/23 06/28/23 21:31 22:58 22:58 WBC RBC Hgb Hct MCV MCH MCHC RDW Plt Count MPV Immature Gran % Neutrophils % Lymphocytes % Monocytes % Eosinophils % Basophils % Nucleated RBC % Absolute Neutrophils Absolute Lymphocytes Absolute Monocytes Absolute Eosinophils Absolute Basophils VBG pH 7.51 H VBG pCO2 28 L VBG pO2 163 VBG HCO3 23 VBG Total CO2 VBG O2 Saturation > 99 VBG Base Excess 0 VBG Lactate Sodium Potassium Chloride Carbon Dioxide Anion Gap BUN Creatinine Est GFR (CKD-EPI 2020) Glucose Serum Osmolality Calcium Total Bilirubin AST ALT Alkaline Phosphatase Total Protein Albumin Urine Color Yellow Urine Clarity Clear Urine pH 6.5 Ur Specific [place] 1.015 Urine Protein 30 H Urine Ketones 15 H Urine Blood Trace-intact H Urine Nitrite Negative Urine Bilirubin Negative Urine Urobilinogen 0.2 Ur Leukocyte Esterase Negative Urine RBC 3-5 H Urine WBC 0-2 Ur Epithelial Cells Few Urine Crystals Negative Urine Bacteria Few Urine Mucus Negative Urine Other Mod Transitional Ur Culture Indicated? No Ur Random Sodium 45 Ur Random Potassium 30 Urine Glucose 250 H 06/28/23 06/28/23 06/29/23 23:26 23:26 00:14 WBC RBC Hgb Hct MCV MCH MCHC RDW Plt Count MPV Immature Gran % Neutrophils % Lymphocytes % Monocytes % Eosinophils % Basophils % Nucleated RBC % Absolute Neutrophils Absolute Lymphocytes Absolute Monocytes Absolute Eosinophils Absolute Basophils VBG pH VBG pCO2 VBG pO2 VBG HCO3 VBG Total CO2 VBG O2 Saturation VBG Base Excess VBG Lactate Sodium Cancelled 114 L* Potassium Cancelled 3.3 L Chloride Cancelled 79 L Carbon Dioxide Cancelled 24.0 Anion Gap Cancelled 11.0 BUN Cancelled 6 L Creatinine Cancelled 0.4 L Est GFR (CKD-EPI 2020) Cancelled 98.14 Glucose Cancelled 130 H Serum Osmolality Cancelled Calcium Cancelled 7.7 L Total Bilirubin AST ALT Alkaline Phosphatase Total Protein Albumin Urine Color Urine Clarity Urine pH Ur Specific [place] Urine Protein Urine Ketones Urine Blood Urine Nitrite Urine Bilirubin Urine Urobilinogen Ur Leukocyte Esterase Urine RBC Urine WBC Ur Epithelial Cells Urine Crystals Urine Bacteria Urine Mucus Urine Other Ur Culture Indicated? Ur Random Sodium Ur Random Potassium Urine Glucose 06/29/23 03:04 WBC RBC Hgb Hct MCV MCH MCHC RDW Plt Count MPV Immature Gran % Neutrophils % Lymphocytes % Monocytes % Eosinophils % Basophils % Nucleated RBC % Absolute Neutrophils Absolute Lymphocytes Absolute Monocytes Absolute Eosinophils Absolute Basophils VBG pH VBG pCO2 VBG pO2 VBG HCO3 VBG Total CO2 VBG O2 Saturation VBG Base Excess VBG Lactate Sodium 116 L* Potassium 3.4 L Chloride 82 L Carbon Dioxide 22.5 Anion Gap 11.5 H BUN 5 L Creatinine 0.2 L Est GFR (CKD-EPI 2020) 115.99 Glucose 114 H Serum Osmolality Calcium 7.5 L Total Bilirubin AST ALT Alkaline Phosphatase Total Protein Albumin Urine Color Urine Clarity Urine pH Ur Specific [place] Urine Protein Urine Ketones Urine Blood Urine Nitrite Urine Bilirubin Urine Urobilinogen Ur Leukocyte Esterase Urine RBC Urine WBC Ur Epithelial Cells Urine Crystals Urine Bacteria Urine Mucus Urine Other Ur Culture Indicated? Ur Random Sodium Ur Random Potassium Urine Glucose Review of Systems All systems reviewed & are unremarkable except as noted in HPI and below Time spent with patient Time spent in Critical Care: 45 Time spent in Critical care included: Chart review, Documenting critically ill care, Time at immediate bedside and Discussing critically ill care with other medical staff Multi-Disciplinary Checklist Lines/Tubes CENTRAL LINE: yes, Central Line Day#: 0 ARTERIAL LINE: no HOLT: yes, Holt Day#: 0 ENDOTRACHEAL TUBE: no ICU Maintenance GLUCOSE 140-180mg/dL: yes NUTRITION AT GOAL: yes PRESSURE ULCER: no RESTRAINTS: no ANTIBIOTICS(if yes, consider Stewardship): No Social Issues FAMILY UPDATED: no, Reason/Intervention: defer to hospitalist PT/OT: no, Reason/Intervention: currently not appropriate GOALS/DISPOSITION/PASSENGER BOOKING CLERK: yes CODE STATUS: Full Prophylaxis DVT PROPHYLAXIS: no Reason/Intervention: recommend this be started GI PROPHYLAXIS: yes, Indication: home med
[2023-06-29 09:31] LABS: Anion Gap 8.2 mmol/L (3-11); Sodium 112 mmol/L (136-145)
[2023-06-29] MEDS: Aspirin E.C. 81 MG TABEC PO ×2 (09:42→20:36)
[2023-06-29] MEDS: Potassium Chloride 20 MEQ TABCR PO ×2 (09:42→20:36)
[2023-06-29] MEDS: SODIUM CHLORIDE 3% 500 ML 50 ML IV (10:00)
[2023-06-29] MEDS: Pantoprazole 40 MG TABCR PO (10:00)
[2023-06-29 10:50] LABS: Lactate 1.5 MMOL/l (0.9-1.7)
[2023-06-29 11:04] LABS: Anion Gap 12.4 mmol/L (3-11); BUN 4 mg/dL (7-18); CO2 22.6 mmol/L (21.0-32.0); CREATININE 0.3 mg/dL (0.55-1.02); Calcium 7.5 mg/dL (8.5-10.1); Chloride 80 mmol/L (98-107); Estimated GFR 105.19 (mL/min/1.73m2); Glucose 129 mg/dL (74-106)
[2023-06-29 11:12] LABS: Potassium 2.6 mmol/L (3.5-5.1); Sodium 115 mmol/L (136-145)
[2023-06-29] MEDS: POTASSIUM CHLORIDE 10 MEQ/100 ML BAG 100 MEQ IVPB ×3 (11:52→14:29)
[2023-06-29] MEDS: Normal Saline Flush 10 ML SYR (11:53)
[2023-06-29 12:58] LABS: Anion Gap 12.2 mmol/L (3-11); CO2 21.8 mmol/L (21.0-32.0); Chloride 83 mmol/L (98-107)
[2023-06-29 13:01] LABS: Sodium 117 mmol/L (136-145)
--- NOTE | 2023-06-29 17:08 | PHACLINREV_ITS ---
Pharmacy Admission Review - Admission Clinical Review (Last Reviewed 06/29/23 @ 03:39 by Reji Yo) Lactate blood increase (Acute) Confusion (Acute) Hypocalcemia (Acute) Hypochloremia (Acute) Discharge planning issues (Acute) DVT prophylaxis (Acute) Acute hyponatremia (Acute) Acute hypokalemia (Acute) COVID-19 (Acute) Essential hypertension (Acute 12/01/15) sulfamethoxazole [From Bactrim] Allergy (Unknown, Verified 06/29/23 02:41) unknown trimethoprim [From Bactrim] Allergy (Unknown, Verified 06/29/23 02:41) unknown amlodipine Adverse Reaction (Intermediate, Verified 06/29/23 02:41) shoulder pain, fatigue Resuscitation Status DNR Height 5 ft Weight 54.3 kg - Comments Comments/Follow Ups: 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, was also on paxlovid - Renal Dosing Renal Dosing: BUN 4 mg/dL (7-18) L 06/29/23 10:20 Creatinine 0.3 mg/dL (0.55-1.02) L 06/29/23 10:20 Medications needing adjustments: Reviewed List of meds needing interventions: eCrCl 51 ml/min (using ideal body weight and an adjusted SCr of 0.6, patient's actual SCr is 0.3 - expert opinion is to round up to 0.6 for a more accurate estimate of kidney function) - Anticoagulation Anticoagulation: Hgb 11.6 g/dL (11.2-15.7) 06/28/23 21:31 Hct 31.4 % (36.0-46.0) L 06/28/23 21:31 Plt Count 190 10^3/uL (130-400) 06/28/23 21:31 Creatinine 0.3 mg/dL (0.55-1.02) L 06/29/23 10:20 DVT Prophylaxis: Reviewed Medications: Enoxaparin - Opiate Usage Evaluate Pain Scale/Pains Meds: N/A - Relevant Labs Sodium 117 mmol/L (136-145) L* 06/29/23 11:35 Potassium 3.0 mmol/L (3.5-5.1) L 06/29/23 11:35 Chloride 83 mmol/L (98-107) L 06/29/23 11:35 Electrolytes, C-Reactive P, ESR: Reviewed (hypertonic saline + DDAVP adm inistered, sodium is steadily increasing at an appropriate rate) - DM Control DM Control: Glucose 129 mg/dL (74-106) H 06/29/23 10:20 DM Control: N/A - Cardiac Review BP, HR, EF%: Reviewed - Qtc Review QTc: N/A - Home Meds Home Med List reviewed: Reviewed Relevent Home Meds Not ordered & why?: all ordered - Current meds Current Medication Order Review: Reviewed
[2023-06-29 17:29] LABS: Sodium, Urine 119 mmol/L
[2023-06-29 17:30] LABS: Anion Gap 9.1 mmol/L (3-11); CO2 22.9 mmol/L (21.0-32.0); Chloride 85 mmol/L (98-107)
[2023-06-29 17:37] LABS: Sodium 117 mmol/L (136-145)
[2023-06-29 18:16] LABS: Osmolality Serum 226 mOsm/kg (275-295)
[2023-06-29 18:16] LABS: Osmolality, Urine 400 mOsm/kg (150-1150)
[2023-06-29 20:34] LABS: Anion Gap 7.8 mmol/L (3-11); CO2 24.2 mmol/L (21.0-32.0); Chloride 87 mmol/L (98-107); Potassium 3.4 mmol/L (3.5-5.1)
[2023-06-29 20:35] LABS: Sodium 119 mmol/L (136-145)
[2023-06-29] MEDS: POTASSIUM CHLORIDE/0.9% NACL 1,000 ML 100 MEQ IV (22:19)
[2023-06-30] VITALS (47 sets, daily range): BP systolic 126–173; BP diastolic 65–140; PULSE 65–123; RESP 10–26; TEMP 36.6–37.3; O2SAT 94–99
[2023-06-30 00:52] LABS: Anion Gap 8.5 mmol/L (3-11); CO2 22.5 mmol/L (21.0-32.0); Chloride 88 mmol/L (98-107)
[2023-06-30 00:54] LABS: Sodium 119 mmol/L (136-145)
[2023-06-30] MEDS: POTASSIUM CHLORIDE/0.9% NACL 1,000 ML 100 MEQ IV (04:29)
[2023-06-30 04:46] LABS: Anion Gap 7.4 mmol/L (3-11); CO2 22.6 mmol/L (21.0-32.0); Chloride 89 mmol/L (98-107); Potassium 3.9 mmol/L (3.5-5.1)
[2023-06-30 04:48] LABS: Sodium 119 mmol/L (136-145)
--- NOTE | 2023-06-30 06:53 | W.PULMCC ---
General Date of Service Date of service: 06/30/23 Time of Service: 06:54 Reason for Admission to ICU: Hyponatremia Assessment and Plan Assessment and plan (1) Acute hyponatremia: Status: Acute (2) Acute hypokalemia: Status: Acute (3) COVID-19: Status: Acute (4) Hypochloremia: Status: Acute (5) Hypertension: Status: Chronic (6) Hypocalcemia: Status: Acute (7) Confusion: Status: Acute (8) Lactate blood increase: Status: Acute Assessment and plan: This is an 82 yo admitted to the ICU for hyponatremia in the setting of COVID and Paxlovid, both of which can cause hyponatremia. 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 She is stable,however her sodium seems to be stuck at 119. I increased the infusion to 70. If on the next check the sodium has not increased I would hold a dose of DDAVP. We may need to consider cancelling the DDAVP all together and decreasing the hypertonic saline rate to have her numbers improve further. Recommendations Pulmonary: No acute concerns Cardiac: Hypertension - advise against strict BP control while in ICU - improved Renal: Hyponatremia - hypertonic saline increased to 70cc.hr - DDAVP changed from 1mcg q6h to 2mcg q8h - if no increase in Na at next check, recommend holding one dose of DDAVP - q4h electrolyte levels - if sodium continued to decrease would cancel DDAVP and decrease HTS to 50cc/hr - strict I/O's Hypokalemia - replacement to 4.0 Lactate elevation - improved I&O: Intake & Output 06/27/23 06/28/23 06/29/23 06/30/23 23:59 23:59 23:59 23:59 Intake Total 2871.667 / 2871.667 716.667 / 716.667 Output Total 2740 / 2740 545 / 545 Balance 131.667 / 131.667 171.667 / 171.667 Weight 57.7 kg 54.3 kg 54.8 kg Daily Fluid Goal:: positive to even GI Nutrition: Ok for normal diet with 1500cc fluid restriction Date of Last Bowel Movement: 06/29/23 Infectious Disease: COVID - stop Paxlovid - no treatment required currently Hematologic: No acute concerns Neurologic: Confusion - monitor for worsening - should improve with sodium improvement Endocrine: No acute concerns Lines: R IJ CVC Prophylaxis: PPI - home med Lovenox Code Status: Resuscitation Status DNR Subjective Critical and life-threatening events over the past 24 hours: Kika is doing well. Her sodium did increase overnight but has been stuck at 119. In response to this, I increased the infusion to 70. Exam Narrative Exam Narrative: deferred today Most Recent VS/Results Last Vital Signs Temp 36.9 C 06/30/23 04:10 Pulse 73 06/30/23 05:00 Resp 11 L 06/30/23 05:00 BP 170/88 H 06/30/23 05:00 Pulse Ox 98 06/30/23 05:00 Laboratory Results - last 24 hr 06/29/23 06/29/23 06/29/23 06:28 10:00 10:20 VBG Lactate Sodium 112 L* 115 L* Potassium 3.1 L 2.6 L* Chloride 80 L 80 L Carbon Dioxide 23.8 22.6 Anion Gap 8.2 12.4 H BUN 4 L 4 L Creatinine 0.4 L 0.3 L Est GFR (CKD-EPI 2020) 98.14 105.19 Glucose 104 129 H Calcium 7.6 L 7.5 L Ur Random Sodium 119 06/29/23 06/29/23 06/29/23 10:20 10:45 10:48 VBG Lactate Cancelled Cancelled 1.5 Sodium Potassium Chloride Carbon Dioxide Anion Gap BUN Creatinine Est GFR (CKD-EPI 2020) Glucose Calcium Ur Random Sodium 06/29/23 06/29/23 06/29/23 11:35 16:05 20:10 VBG Lactate Sodium 117 L* 117 L* 119 L* Potassium 3.0 L 4.0 D 3.4 L Chloride 83 L 85 L 87 L Carbon Dioxide 21.8 22.9 24.2 Anion Gap 12.2 H 9.1 7.8 BUN Creatinine Est GFR (CKD-EPI 2020) Glucose Calcium Ur Random Sodium 06/30/23 06/30/23 00:30 04:30 VBG Lactate Sodium 119 L* 119 L* Potassium 4.0 3.9 Chloride 88 L 89 L Carbon Dioxide 22.5 22.6 Anion Gap 8.5 7.4 BUN Creatinine Est GFR (CKD-EPI 2020) Glucose Calcium Ur Random Sodium Review of Systems All systems reviewed & are unremarkable except as noted in HPI and below Time spent with patient Time spent in Critical Care: 30 Time spent in Critical care included: Chart review, Documenting critically ill care, Time at immediate bedside and Discussing critically ill care with other medical staff Multi-Disciplinary Checklist Lines/Tubes CENTRAL LINE: yes, Central Line Day#: 1 ARTERIAL LINE: no HOLT: yes, Holt Day#: 1 ENDOTRACHEAL TUBE: no ICU Maintenance GLUCOSE 140-180mg/dL: yes NUTRITION AT GOAL: yes PRESSURE ULCER: no RESTRAINTS: no ANTIBIOTICS(if yes, consider Stewardship): No Social Issues FAMILY UPDATED: no, Reason/Intervention: defer to hospitalist PT/OT: no, Reason/Intervention: currently not appropriate GOALS/DISPOSITION/WOMEN'S LACROSSE COACH: yes CODE STATUS: Full Prophylaxis DVT PROPHYLAXIS: yes GI PROPHYLAXIS: yes, Indication: home med
[2023-06-30] MEDS: Normal Saline Flush 10 ML SYR IVP ×3 (08:31→19:14)
[2023-06-30] MEDS: Pantoprazole 40 MG TABCR PO (08:32)
[2023-06-30] MEDS: Aspirin E.C. 81 MG TABEC PO ×2 (08:32→19:13)
[2023-06-30] MEDS: Potassium Chloride 20 MEQ TABCR PO ×2 (08:32→19:13)
[2023-06-30] MEDS: Enoxaparin 40 MG/0.4 ML SYR SC (08:33)
--- NOTE | 2023-06-30 08:33 | PDOC.CMPRO ---
Date of service: 06/30/23 Time of Service: 08:33 Care Management Progress Note Progress Note Text Progress Note Text: S/O:CM was able to speak to Kika on the phone today. Her confusion has cleared and she stated that she feels much better, but is still very weak. She explained that just getting up to the commode exhausts her. Kika informed CM that she did a home Covid test on Monday because she developed a stuffy nose and sore throat. She had also gone out to lunch with a friend on Monday who then developed Covid. Her main symptoms have been fatigue and mild respiratory symptoms. CM informed Kika that she would need to isolate from others for 10 days but that if she were medically stable, she could be discharged sooner. She has help at home with meals etc. Her [id number] Franny has arrived from [place] and will also be there. Franny is on oral chemotherapy so plans to mask around Kika when she comes home. A PT consult has been ordered for Kika. She had a hip replacement a month ago and had just gotten to the point where she could ambulate independently at home without her cane. She does not want to decline. Kika remains significantly hyponatremic, with her sodium at 118 this morning. It is being checked every 4 hours. A:Kika is a 82 year old woman admitted on 06/29/23 with hyponatremia and Covid P:Kika will likely be discharged home with no new services when medically stable. She will follow up with her community providers and plan of care and transport with family. CM will follow and continue to assess for discharge needs.
[2023-06-30] MEDS: SODIUM CHLORIDE 3% 500 ML 70 ML IV ×2 (08:34→17:20)
[2023-06-30 11:24] LABS: Anion Gap 13.4 mmol/L (3-11); BUN 4 mg/dL (7-18); CO2 18.6 mmol/L (21.0-32.0); CREATININE 0.6 mg/dL (0.55-1.02); Calcium 7.4 mg/dL (8.5-10.1); Chloride 86 mmol/L (98-107); Estimated GFR 89.01 (mL/min/1.73m2); Glucose 203 mg/dL (74-106); Potassium 3.7 mmol/L (3.5-5.1)
[2023-06-30 11:28] LABS: Sodium 118 mmol/L (136-145)
--- NOTE | 2023-06-30 13:19 | PGE_ITS ---
Date of Service Date of service: 06/30/23 Time of Service: :23 Assessment and Plan Assessment and plan (1) Acute hyponatremia: Status: Acute Assessment and plan: Severe hyponatremia developing in the setting of COVID, associated with mental status changes. Secondary to Covid and/or Paxlovid. Improving with hypertonic saline, DDAVP, fluid restriction. DDAVP now stopped. (2) Acute hypokalemia: Status: Acute Assessment and plan: Repleted. (3) COVID-19: Status: Acute Assessment and plan: As above she has mild disease, no hypoxia. Given risk of hyponatremia higher than COVID right now, holding paxlovid. (4) Essential hypertension: Status: Acute Assessment and plan: Holding HCTZ given hyponatremia, but she should be able to resume when it corrects. (5) DVT prophylaxis: Status: Acute Assessment and plan: LMWH given COVID infection (6) Discharge planning issues: Status: Acute Assessment and plan: She is in the ICU for monitoring on hypertonic saline. I appreciate Dr. Cabrera placing the central line. Subjective Subjective Patient reports: feels better and afebrile; denies diarrhea, vomiting or shortness of breath Exam Narrative Exam Narrative: Gen: Lying supine in bed. Appears comfortable. Interactive. HEENT: Head atraumatic. Conjunctiva clear, no icterus. MMM LUNGS: CTAB with normal effort CV: RRR with no murmurs ABD: +BS, soft, NT EXT: No edema or calf tenderness. MSK: No joint redness or swelling SKIN: No rashes PSYCH: affect appropriate. Oriented to person and place. Objective Last Vital Signs Temp 37.2 C 06/30/23 12:22 Pulse 80 06/30/23 12:05 Resp 14 06/30/23 12:22 BP 150/83 H 06/30/23 12:05 Pulse Ox 96 06/30/23 12:22 Laboratory Results - last 24 hr 06/28/23 06/28/23 06/29/23 22:58 22:58 00:14 Sodium Potassium Chloride Carbon Dioxide Anion Gap BUN Creatinine Est GFR (CKD-EPI 2020) Glucose Serum Osmolality 226 L Calcium Urine Osmolality 400 Ur Random Sodium Ur Random Chloride 51 06/29/23 06/29/23 06/29/23 10:00 16:05 20:10 Sodium 117 L* 119 L* Potassium 4.0 D 3.4 L Chloride 85 L 87 L Carbon Dioxide 22.9 24.2 Anion Gap 9.1 7.8 BUN Creatinine Est GFR (CKD-EPI 2020) Glucose Serum Osmolality Calcium Urine Osmolality Ur Random Sodium 119 Ur Random Chloride 06/30/23 06/30/23 06/30/23 00:30 04:30 10:44 Sodium 119 L* 119 L* 118 L* Potassium 4.0 3.9 3.7 Chloride 88 L 89 L 86 L Carbon Dioxide 22.5 22.6 18.6 L Anion Gap 8.5 7.4 13.4 H BUN 4 L Creatinine 0.6 Est GFR (CKD-EPI 2020) 89.01 Glucose 203 H Serum Osmolality Calcium 7.4 L Urine Osmolality Ur Random Sodium Ur Random Chloride Time Spent with Patient Time Spent with Patient: 25-34 minutes Time was spent: preparing to see the patient(eg.review tests), obtaining and/or reviewing separately otained hiistory, ordering medications,tests, procedures, referring, communicating with other health customer care specialist, indepentently interpreting results, counseling the patient and care coordination
[2023-06-30 14:42] LABS: BUN 6 mg/dL (7-18); CREATININE 0.3 mg/dL (0.55-1.02); Chloride 92 mmol/L (98-107); Estimated GFR 105.19 (mL/min/1.73m2); Glucose 136 mg/dL (74-106); Potassium 3.5 mmol/L (3.5-5.1)
[2023-06-30 14:43] LABS: Sodium 122 mmol/L (136-145)
--- NOTE | 2023-06-30 15:37 | PT.INIE ---
PT Notes Visit Reasons: Hyponatremia, COVID Physical Therapy Day Surgery Initial Evaluation Date: 06/30/2023 Referring Doctor: Amelia Ramires NP PT Orders: PT CONSULT: Eval/Treat Precautions: WBAT on the left LE with AD. Activity as tolerated. COVID-19 precautions. Patient Profile/Admitting Diagnosis: Kika is an 82-year-old female S/P L TEETEE on 05/31/2023 who presented to the ED on 06/28/2023 due to confusion and generalized weakness. She is admitted for diagnoses of acute hyponatremia, acute hypokalemia, COVID-19 infection and essential hypertension. PMHX: All Active Problems?(Updated 06/29/23 @ 04:18 by Reji Yo) Discharge planning issues (Acute) DVT prophylaxis (Acute) Acute hyponatremia (Acute) Acute hypokalemia (Acute) COVID (Acute ~06/24/23) History of total left hip replacement (Acute 05/31/23) Loose stools (Acute) AM, with regular BMs afterwards .. Hx immodium only with watery stools. 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 DEXA 12/2012 T-1.9 hip, T-1.8 spine; -3.0 R wrist; FRAX 50.7/35.6 ; h/o bisphosphonates after L wrist fx; LifeStyle:? [employer] balance training. Impaired fasting glucose (Acute) x1, WNL otherwise Medical History? Cellulitis of face Tick bite (dog tick) Diverticulosis (09/01/16) Found on colonoscopy Facial swelling Stress due to illness of family member Tubular adenoma of colon (04/21/11) colo 2016 tubular adenoma colo 2020 clear/negative Uterine fibroid Dr. Felix PREPAROLE COUNSELING AIDE/[facility] Surgical History? Cataracts, bilateral colonoscopy (08/31/16) Cortical cataract of left eye Nuclear sclerotic cataract of left eye Nuclear sclerotic cataract of right eye S/P bilateral cataract extraction (~04/2021) S/P total hysterectomy (07/16/21) w/ rgt salpingo-oophorectomy, left oophorectomy. Jai Felix MD [facility] Tonsillectomy and adenoidectomy pt. states just her tonsills were removed NOT adenoids Social History/Home Situation: Lives with in a private home with 3-4 steps to enter with a rail on one side.? [id number]-nly (who is a physical therapist) and her son will be available at home as well to provide needed assistance for patient.? 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 Equipment Owned/DME: SPC,? walking stick Subjective: No pain in theL hip at rest and with weight bearing.? Denies chest pain, headache, and lightheadedness throughout session. Objective: General Observation: Standing in front of commode, Nurse Kaylee assisting post voiding.? Telemetry monitoring in place. Wilson catheter in place. Central line in place. Mental Status: Alert and oriented x4 Pain: None reported ROM: Right Lower Extremity: Hip flexion WFL. Hip abduction WFL. Knee flexion WFL. Ankle dorsiflexion WFL. Ankle plantarflexion WFL. Left Lower Extremity: Hip flexion WFL. Hip abduction WFL. Knee flexion WFL. Ankle dorsiflexion WFL. Ankle plantarflexion WFL. Strength: Right Lower Extremity: Hip flexors 5/5. Hip abductors 5/5. Knee flexors 5/5. Knee extensors 5/5. Ankle dorsiflexors 5/5. Ankle plantarflexors 5/5. Left Lower Extremity:Hip flexors 4/5. Hip abductors 4/5. Knee flexors 5/5. Knee extensors 4-/5. Ankle dorsiflexors 5/5. Ankle plantarflexors 5/5. Sensation: Intact as to pain in bilateral lower extremities Bed Mobility/Transfers: Supine to sit standby assist Sit to stand stand by assist Stand to sit standby assist Bed to chair standby assist Gait: Tolerated level surface ambulation of 10 feet x 2 using front-wheeled walker insidne room, standby assist with no report of increased pain in the left hip.? No LOB.? Mild SOB. Balance: Static Sitting: Normal Dynamic Sitting: Normal Static Standing: Fair Dynamic Standing: Fair Special Tests: Mobility Limitations Standardized Measure [facility] 6 clicks Basic Mobility Inpatient Short Form: Raw Score: 23 ? CMS Score: 11% deficit ? Informed Consent/Education:? Patient instructed in purpose of PT consult.? Reviewed TEETEE exercise protocol has been given to patient.? Education and training on initial set of exercises that can be done at home have been completed with patient. Exercises - Gluteal Sets? - 1 x daily - 7 x weekly - 1 sets - 10 reps - 5 hold - Supine Heel Slide? - 1 x daily - 7 x weekly - 1 sets - 10 reps - 5 hold - Supine Ankle Pumps? - 1 x daily - 7 x weekly - 1 sets - 10 reps - 5 hold - Supine AKTC - 1 x daily - 7 x weekly - 1 sets - 10 reps - 5 hold - Seated March? - 1 x daily - 7 x weekly - 1 sets - 10 reps - 5 hold - Seated Long Arc Quad? - 1 x daily - 7 x weekly - 1 sets - 10 reps - 5 hold - Bilateral heel raises - 1 x daily - 7 x weekly - 1 sets - 10 reps - 5 hold ASSESSMENT: Weak from COVID infection but motivated to do exercises. Patient was reminded to take it easy as for now, doing exercises with adequate rest in between. Instructed her that with stand by assist from nursing, she may walk around her bed, sit down, rest and do one or two exercises slowly. Kika requires the use of front wheeled walker to maximize independence and reduce fall risk.? Patient presents with clinical signs and symptoms consistent with current/admitting diagnoses that have resulted to mobility limitations, gait instability, generalized weakness, and impairment of motor control as demonstrated by the following impairment level findings: 1.? Decreased strength to left hip major muscle groups 2.? Impaired standing balance Impairments are contributing to the following functional limitations: 1.? Inability to safely ambulate without assistive device 2.? Increase completion time for mobility ADL performance 3.? Increased fall risk Patient is assessed as a 50105 moderate complexity based on the following: History: 82-year-old female with impairment level findings, functional limitations, and past medical history as indicated above Examination: Demonstrable impairment in strength, balance, and mobility level with underlying impairments and functional limitations as documented above Presentation: Evolving Decision Makin moderate complexity Goals: Goals X1 week 1. Supine-Sit independent 2. Sit-Supine independent 3. Sit-Stand independent 4. Stand-Sit independent 5. Bed-Chair independent 6. Chair-Bed independent 7. Independent gait on level surface with use of least restrictive device for at least 50 feet inside room without report of pain nor dyspnea 8. Independent with home exercise program 9. Good static and dynamic standing balance/tolerance Plan of Care/Treatment Plan: 1-2x/day, 7 days/week x 1 week. Plan of care has been reviewed with the FRUIT AND VEGETABLE CLASSER providing the service under Physical Therapy direction. Initiate Physical Therapy intervention for pain management as needed, strengthening, bed mobility, transfers, gait, stairs, balance training, and use of assistive device. FRUIT AND VEGETABLE CLASSER to provide another copy of exercises above for reference as she does them in her room while on admission. DISCHARGE RECOMMENDATIONS: [] Home with no services [] [X] Home with services. Patient will benefit from home health PT services in order to progress mobility level using least restrictive assistive ambulatory device, assess home safety, identify additional equipment needs, and establish a functional maintenance program that will increase ability of patient to remain at home. [] Home with outpatient PT [] [] SNF for continued rehabilitation [] [] Correction Care [] [] SNF versus LTC based on ability to participate and progress [] TREATMENT CODE/TIME: 87872 x 20 minutes (1 unit), 09558 x 14 minutes (1 unit) beginning at 14:55 PM. Thank you for the opportunity to participate in the care of this patient. Sandhya Boateng PT, DPT, CLT [facility] [place], [place]
[2023-06-30 18:20] LABS: Anion Gap 10.5 mmol/L (3-11); BUN 5 mg/dL (7-18); CO2 22.5 mmol/L (21.0-32.0); CREATININE 0.3 mg/dL (0.55-1.02); Calcium 7.5 mg/dL (8.5-10.1); Chloride 93 mmol/L (98-107); Estimated GFR 105.19 (mL/min/1.73m2); Glucose 90 mg/dL (74-106); Potassium 3.8 mmol/L (3.5-5.1); Sodium 126 mmol/L (136-145)
[2023-06-30] MEDS: Acetaminophen 500 MG TAB 1000 MG PO (21:02)
[2023-06-30] MEDS: guaiFENesin 600 MG TABCR PO (21:02)
[2023-07-01] VITALS (14 sets, daily range): BP systolic 126–172; BP diastolic 57–93; PULSE 60–90; RESP 10–20; TEMP 37.3; O2SAT 89–99
[2023-07-01 06:41] LABS: Abs Immature Grans 0.02 10^3/uL (0.0-0.06); Absolute Basophil Count 0.01 10^3/uL (0.0-0.2); Absolute Eosinophil Count 0.08 10^3/uL (0.0-0.7); Absolute Monocyte Count 0.51 10^3/uL (0.1-0.8); Absolute Neutrophil Count 2.07 10^3/uL (1.2-6.7); Basophils % 0.3; Eosinophils % 2.1; HCT 30.7 % (36.0-46.0); Immature Grans % 0.5; Lymphocytes % 30.8; MCH 31.8 pg (27.0-33.0); MCHC 35.8 % (32.0-36.0); MCV 89 fL (80-95); MPV 9.6 fL (8.0-11.0); Monocytes % 13.1; Neutrophils % 53.2; Platelet Count 179 10^3/uL (130-400); RBC 3.46 10^6/uL (3.93-5.22); RDW 12.9 % (11.7-14.6); RDW-SD 41.5 fL; WBC 3.89 10^3/uL (4.4-10.8)
[2023-07-01 07:05] LABS: Anion Gap 7.9 mmol/L (3-11); BUN 4 mg/dL (7-18); CO2 26.1 mmol/L (21.0-32.0); CREATININE 0.4 mg/dL (0.55-1.02); Calcium 8.1 mg/dL (8.5-10.1); Chloride 100 mmol/L (98-107); Estimated GFR 98.14 (mL/min/1.73m2); Glucose 94 mg/dL (74-106); Magnesium 1.7 mg/dL (1.8-2.4); Potassium 3.6 mmol/L (3.5-5.1); Sodium 134 mmol/L (136-145)
[2023-07-01] MEDS: Normal Saline Flush 10 ML SYR IVP (07:17)
[2023-07-01] MEDS: Aspirin E.C. 81 MG TABEC PO (08:42)
[2023-07-01] MEDS: Pantoprazole 40 MG TABCR PO (08:42)
[2023-07-01] MEDS: Enoxaparin 40 MG/0.4 ML SYR SC (08:43)
[2023-07-01] MEDS: Potassium Chloride 20 MEQ TABCR PO (08:43)
--- NOTE | 2023-07-01 10:16 | DSE_ITS ---
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 With hypertonic saline and a DDAVP clamp her Na improved; 134 on day of discharge. She will not resume Paxlovid. (2) Acute hypokalemia: Status: Acute Asessment and Plan: Repleted. (3) COVID-19: Status: Acute Asessment and Plan: No hypoxia, cough, shortness of breath. Mildly low WBC in the 3's. Masking for another 5 days when around others recommended. (4) Hypertension: Status: Chronic (5) Hypocalcemia: Status: Acute Asessment and Plan: OK to resume hydrochlorothiazide. BMP to be drawn next week. (6) Confusion: Status: Acute Asessment and Plan: Secondary to hyponatemia. Resolved. (7) Lactate blood increase: Status: Acute Asessment and Plan: Lactate of 2.7 on admission. NOrmalized to 1.5. Discharge Plan Disposition Patient Disposition: Home Condition: Improving Discharge Details Reason For Visit: Hyponatremia, COVID Admit Date/Time: 06/29/23 01:16 Admit Provider: Reji Yo Attending Provider: Reji Yo [facility] Hospital Course: 82 yo F with history of HTN who was recently diagnosed with COVID-19 infection and started on Paxlovid on Monday, 2.5 days prior to presentation, presented to the emergency room today with confusion.? Per the family, she was doing well until the evening of presentation when she was quite weak and confused.? After a few hours without improvement, EMS was called.? She was never in respiratory distress, did not have fevers, and did not have chest pain.? She did not loose conciousness or have any trauma.? She has not had vomiting or diarrhea.? She hasn't been eating or drinking as much as usual.? Other than paxlovid she has not had any new medications She did admit she feels cloudy headed.? Na was 112. Hypertonic saline nitiated in the ED. See Diagnosis PCP f/u in 1-2 weeks Home Meds and New Rx's Prescriptions: New potassium chloride [Klor-Con M20] 20 mEq Tablet,Er Particles/Crystals 20 meq PO BID Qty: 14 0RF Continued multivitamin [Daily Multi-Vitamin] 1 EACH tablet 1 ea PO DAILY calcium carbonate-vitamin D3 1 EACH tablet 1 ea PO DAILY hydrochlorothiazide 12.5 mg capsule 12.5 mg PO DAILY Qty: 90 3RF Rx Instructions: to lower BP under 140/85 tramadol 50 mg tablet 50 mg PO BID PRN (Reason: severe postoperative pain) Qty: 10 0RF Rx Instructions: Take one tablet up to twice a day as needed PreserVision AREDS 2,148 mcg-113 mg-45 mg-17.4mg Tablet 1 tab PO DAILY celecoxib 200 mg capsule 200 mg PO BID PRN (Reason: pain) Qty: 60 1RF aspirin 81 mg tablet,delayed release (DR/EC) 81 mg PO BID Qty: 60 0RF pantoprazole 40 mg tablet,delayed release (DR/EC) 40 mg PO DAILY Qty: 30 0RF acetaminophen 500 mg tablet 1,000 mg PO Q8H PRN PRN (Reason: pain) 30 Days Qty: 90 0RF Rx Instructions: take 2 tablets by mouth every 8 hrs as needed for pain Discontinued Paxlovid 300 mg (150 mg x 2)-100 mg tablets,dose pack 1 dose pk PO BID 5 Days Qty: 30 0RF Rx Instructions: Please dispense 1 pack. Discharge Instructions Activity:: Activity as Tolerated Equipment/Supplies:: No Equipment Needed Diet:: Resume usual home diet Discharge Orders Discharge Orders: Discharge Order (Routine); Ordered 07/01/23 Ordered By: Maxi Nam DS: Summary Time Spent with Patient providing and/or coordinating discharge services: Greater than 30 minutes Status at Discharge Functional status at discharge: independent ambulation Overall status at discharge: patient is progressing back to baseline Mental Status: mental status grossly normal Speech and Movement: speech clear Mood: congruent mood Affect: normal affect Exam Narrative Exam Narrative: Gen: Lying supine in bed. Appears comfortable. Smiling. NAD HEENT: Head atraumatic. Conjunctiva clear, no icterus. MMM LUNGS: CTAB with normal effort CV: RRR with no murmurs ABD: +BS, soft, NT EXT: No edema or calf tenderness. MSK: No joint redness or swelling SKIN: No rashes PSYCH: affect appropriate. Oriented to person and place. Psych Mental Status: mental status grossly normal Speech and Movement: speech clear Mood: congruent mood Affect: normal affect DS: Data Vitals/I&O Vitals and I&O: Vital Signs Temperature 37.3 C 07/01/23 09:26 Temperature Source Temporal Artery Scan 07/01/23 09:26 Pulse 72 07/01/23 09:26 Pulse 74 07/01/23 08:01 Respiratory Rate 13 07/01/23 09:26 Respiratory Effort Normal, Non-Labored 07/01/23 09:26 Respiratory Depth Shallow 07/01/23 09:26 Respiratory Pattern Normal 07/01/23 09:26 Blood Pressure 158/80 H 07/01/23 09:26 Blood Pressure Mean 106 07/01/23 09:26 Blood Pressure Position Left Lateral 07/01/23 09:26 Pulse Oximetry 98 07/01/23 09:26 Oxygen Delivery Method Room Air 07/01/23 04:26 Oxygen Flow Rate 0 07/01/23 04:26 Pain Level 0 07/01/23 09:26 Intake & Output 06/30/23 06/30/23 07/01/23 11:59 23:59 11:59 Intake Total 1486.667 / 2948.167 1461.500 / 2948.167 80 / 80 Output Total 1045 / 2645 1600 / 2645 2800 / 2800 Balance 441.667 / 303.167 -138.500 / 303.167 -2720 / -2720 Weight 54.8 kg Intake: IV 1026.667 / 1676.167 649.500 / 1676.167 20 / 20 Oral 460 / 1272 812 / 1272 60 / 60 Output: Urine 1045 / 2645 1600 / 2645 2800 / 2800 Other: Urine Color Yellow Delcambre Straw Delcambre Urine Appearance Clear Clear Clear Hematuria Clots Comment Wilson in place Wilson in place. Slight irene tinge to urine urine is tea-colored Stool Size Moderate Moderate Stool Characteristics Liquid Liquid Data Completed and Pending Labs on day of discharge: Labs from last 24 hours 07/01/23 07/01/23 06/30/23 06:00 06:00 17:45 WBC 3.89 L RBC 3.46 L Hgb 11.0 L Hct 30.7 L MCV 89 MCH 31.8 MCHC 35.8 RDW 12.9 Plt Count 179 MPV 9.6 Immature Gran % 0.5 Neutrophils % 53.2 Lymphocytes % 30.8 Monocytes % 13.1 Eosinophils % 2.1 Basophils % 0.3 Nucleated RBC % 0.0 Absolute Neutrophils 2.07 Absolute Lymphocytes 1.20 Absolute Monocytes 0.51 Absolute Eosinophils 0.08 Absolute Basophils 0.01 Sodium 134 L 126 L Potassium 3.6 3.8 Chloride 100 93 L Carbon Dioxide 26.1 22.5 Anion Gap 7.9 10.5 BUN 4 L 5 L Creatinine 0.4 L 0.3 L Est GFR (CKD-EPI 2020) 98.14 105.19 Glucose 94 90 Calcium 8.1 L 7.5 L Magnesium 1.7 L 06/30/23 06/30/23 06/30/23 16:00 14:00 14:00 WBC RBC Hgb Hct MCV MCH MCHC RDW Plt Count MPV Immature Gran % Neutrophils % Lymphocytes % Monocytes % Eosinophils % Basophils % Nucleated RBC % Absolute Neutrophils Absolute Lymphocytes Absolute Monocytes Absolute Eosinophils Absolute Basophils Sodium Cancelled Cancelled 122 L* Potassium Cancelled 3.5 Chloride Cancelled 92 L Carbon Dioxide Cancelled 23.0 Anion Gap Cancelled 7.0 BUN Cancelled 6 L Creatinine Cancelled 0.3 L Est GFR (CKD-EPI 2020) Cancelled 105.19 Glucose Cancelled 136 H Calcium Cancelled 7.0 L Magnesium 06/30/23 10:44 WBC RBC Hgb Hct MCV MCH MCHC RDW Plt Count MPV Immature Gran % Neutrophils % Lymphocytes % Monocytes % Eosinophils % Basophils % Nucleated RBC % Absolute Neutrophils Absolute Lymphocytes Absolute Monocytes Absolute Eosinophils Absolute Basophils Sodium 118 L* Potassium 3.7 Chloride 86 L Carbon Dioxide 18.6 L Anion Gap 13.4 H BUN 4 L Creatinine 0.6 Est GFR (CKD-EPI 2020) 89.01 Glucose 203 H Calcium 7.4 L Magnesium PFSH All Active Problems Hypertension (Chronic) Lactate blood increase (Acute) Confusion (Acute) Hypocalcemia (Acute) Hypochloremia (Acute) Discharge planning issues (Acute) DVT prophylaxis (Acute) Acute hyponatremia (Acute) Acute hypokalemia (Acute) COVID-19 (Acute) COVID (Acute ~06/24/23) History of total left hip replacement (Acute 05/31/23) Loose stools (Acute) AM, with regular BMs afterwards .. Hx immodium only with watery stools. 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 DEXA 12/2012 T-1.9 hip, T-1.8 spine; -3.0 R wrist; FRAX 50.7/35.6 ; h/o bisphosphonates after L wrist fx; LifeStyle: [employer] balance training. Impaired fasting glucose (Acute) x1, WNL otherwise Medical History Cellulitis of face Tick bite (dog tick) Diverticulosis (09/01/16) Found on colonoscopy Facial swelling Stress due to illness of family member Tick bite Dog tick Tubular adenoma of colon (04/21/11) colo 2015 tubular adenoma colo 2020 clear/negative Uterine fibroid Dr. Felix SOFT WORK WRAPPER EXAMINER/[facility] Surgical History Cataracts, bilateral colonoscopy (08/31/16) Cortical cataract of left eye Nuclear sclerotic cataract of left eye Nuclear sclerotic cataract of right eye S/P bilateral cataract extraction (~04/2021) S/P total hysterectomy (07/16/21) w/ rgt salpingo-oophorectomy, left oophorectomy..Jai Felix MD [facility] Tonsillectomy and adenoidectomy pt. states just her tonsills were removed NOT adenoids Family History Mother , Stroke at age 93. No problems noted. Brother No problems noted. Social History Smoking/Tobacco Use Status: Never Smoking risk assessment performed?: Yes Alcohol Intake: current Alcohol Intake frequency: 0-2 drinks per day Alcohol type: wine Details: 4oz of wine daily with dinner. 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 Pets and animals: Yes Pets and animals: dog(s) Sexually active: No Do you think of yourself as: straight/heterosexual Current gender identity: female What is your relationship status?: How often do you talk on the phone with friends or family?: three or more times per week How often do you get together with friends or relatives?: once per week Do you belong to any clubs or organized social groups?: yes Panel score (0-1 are the most socially isolated patients): 2 What type of physical activity do you participate in: walking Duration: 30-45 minutes/day Jeannette/Gnosticism: Holiness Special jeannette needs: No Agree to transfusion: Yes Seatbelt use: always Helmet use: No Drive intox or ride w/intox commercial driver's license driver: No Working smoke detector in home: Yes Fire extinguisher in home: Yes Carbon monox detector in home: Yes Do you feel safe at home: Yes Do you feel safe in your relationship?: Yes Victim of physical abuse: No Victim of emotional abuse: No Victim of sexual abuse: No Time Spent with Patient Time Spent with Patient: 45-69 minutes Time was spent: preparing to see the patient(eg.review tests), obtaining and/or reviewing separately otained hiistory, ordering medications,tests, procedures, referring, communicating with other health chiropractic care, indepentently interpreting results and counseling the patient
--- NOTE | 2023-07-01 10:21 | PT.INTREAT ---
PT Notes Visit Reasons: Hyponatremia, COVID Inpatient Physical Therapy Treatment Note [facility] Date: 07/01/23 PRECAUTIONS:COVID 19 SUBJECTIVE: Pt reports that during her PT session the exercises seems to clear her head and make her feel better. OBJECTIVE: [ ? PAIN: ? Therapeutic Activities (27112g[]): Direct one-on-one instruction in dynamic activities to improve functional performance. ? BED MOBILITY/TRANSFERS? Sit-stand: SBA ? Stand-sit: SBA? Provided skilled cues and instruction on performance and technique throughout. Gait Training (32740j[]): Direct one-on-one instruction and skilled instruction in: [] employing an assistive device [] modified weight-bearing status [] movement sequencing [] turning and movement with proper form [] Provided verbal cues for equipment management and technique [] Provided instruction in gait pattern [] Patient education regarding pacing and breathing techniques to maximize activity tolerance? GAIT? Assistive Device: []? Weight bearing: [] Assist: [] ? Distance:? [] ? Deviation: [] ? STAIRS:[] ? Therapeutic Exercises (49515m[3]): Direct one-on-one instruction in therapeutic exercises to develop strength, endurance, range of motion and flexibility. ? Exercises ? Pt completed LAQ x 10, seated hip abd x 10B, Standing marching x 20 alt, STS x 10, Standign HR x 10 ?Ambulation ? Assistive Device: FWW? Weight bearing: Full Assist: SBA ? Distance:? From the chair to the door and back x 3 seated rest then x 3 again from chair to door and back. ? Provided skilled instruction in proper exercise performance Provided skilled manual cues to facilitate proper muscle recruitment and/or form: ASSESSMENT:? Pt tolerated today's session very well. She was very motivated for PT. PLAN: Cont as per PT POC. TREATMENT CODE/TIME: 9:30-10:20 (45) Ther ex x 3
[2023-07-01] MEDS: Magnesium Oxide 400 MG TAB PO (11:09)
--- NOTE | 2023-07-01 15:32 | PDOC.CMDIS ---
Date of service: 07/01/23 Time of Service: 15:32 LACE Index Scoring Tool Questions: Length of Stay (in days): 2 Was the patient admitted via the E.D.?: Yes E.D. Visits: 1 Answers: Total Score: 6 Risk of Readmission: Low Risk Care Management Discharge Plan Reason for Hospitalization: Acute Hypokalemia and Covid Discharge Plan: Kika returned home today with no new services. Her daughter drove her home via private vehicle. She will follow up with her PCP and discharge plan of care. Patient/Family Education Needs: Review discharge instructions and limitations, discussion of self care needs including ask me three.
--- NOTE | 2023-07-03 12:59 | PT.INDS ---
PT Notes Visit Reasons: Hyponatremia, COVID Physical Therapy Discharge Summary Treatment Dates: 06/30/2023 - 07/01/23 Referring Doctor: Amelia Ramires NP PT Orders: PT CONSULT: Eval/Treat Precautions: WBAT on the left LE with AD. Activity as tolerated. COVID-19 precautions. This document serves as a summary of care. No PT services were provided on this date. Patient Profile/Admitting Diagnosis: Kika is an 82-year-old female S/P L TEETEE on 05/31/2023 who presented to the ED on 06/28/2023 due to confusion and generalized weakness. She is admitted for diagnoses of acute hyponatremia, acute hypokalemia, COVID-19 infection and essential hypertension. She participated in 2 PT sessions and was able to demonstrate safety with functional mobility sufficient to allow for safe return home with family support. Social History/Home Situation: Lives with in a private home with 3-4 steps to enter with a rail on one side.? [id number] (who is a physical therapist) and her son will be available at home as well to provide needed assistance for patient.? 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 Equipment Owned/DME: [facility],? walking stick Subjective: none obtained Objective: ROM: Right Lower Extremity: Hip flexion WFL. Hip abduction WFL. Knee flexion WFL. Ankle dorsiflexion WFL. Ankle plantarflexion WFL. Left Lower Extremity: Hip flexion WFL. Hip abduction WFL. Knee flexion WFL. Ankle dorsiflexion WFL. Ankle plantarflexion WFL. Strength: Right Lower Extremity: Hip flexors 5/5. Hip abductors 5/5. Knee flexors 5/5. Knee extensors 5/5. Ankle dorsiflexors 5/5. Ankle plantarflexors 5/5. Left Lower Extremity:Hip flexors 4/5. Hip abductors 4/5. Knee flexors 5/5. Knee extensors 4-/5. Ankle dorsiflexors 5/5. Ankle plantarflexors 5/5. Sensation: Intact as to pain in bilateral lower extremities Bed Mobility/Transfers: Supine to sit standby assist Sit to stand stand by assist Stand to sit standby assist Bed to chair standby assist Gait: Tolerated level surface ambulation of up to 10 feet x 3 using front-wheeled walker inside room, standby assist with no report of increased pain in the left hip.? No LOB.? Mild SOB. Balance: Static Sitting: Normal Dynamic Sitting: Normal Static Standing: Fair Dynamic Standing: Fair ? ? ASSESSMENT: Tolerated PT intervention well, and able to demonstrate good safety and independence with short distance ambulation. Appropriate for discharge home with family support. Goals: Goals X1 week 1. Supine-Sit independent (progressing toward, able to complete with SBA) 2. Sit-Supine independent(progressing toward, able to complete with SBA) 3. Sit-Stand independent(progressing toward, able to complete with SBA) 4. Stand-Sit independent(progressing toward, able to complete with SBA) 5. Bed-Chair independent(progressing toward, able to complete with SBA) 6. Chair-Bed independent(progressing toward, able to complete with SBA) 7. Independent gait on level surface with use of least restrictive device for at least 50 feet inside room without report of pain nor dyspnea (progressing toward, able to complete with SBA) 8. Independent with home exercise program (met) 9. Good static and dynamic standing balance/tolerance (progressing toward, with continued need for FWW) Plan of Care/Treatment Plan: D/C from PT services. DISCHARGE RECOMMENDATIONS: [X] Home with no new services TREATMENT CODE/TIME: none Thank you for the opportunity to participate in the care of this patient. Lina Reyes PT, DPT [facility] [place], [place]
--- NOTE | 2023-07-03 19:27 | NUR.NOTE ---
06/29 at 7:35 AM, Bello, the patient's nephew called for update. Updated and remimded to call around 10:30 for further information Nursing Not
== END 2023-07-01 13:58 | disposition home or self-care (01) | DRG 643 ==
LOC: ER 06-29 02:09 → ICU 06-29 10:08
PROVIDERS: Family Medicine; Student in an Organized Health Care Education/Training Program; Admitting Provider Family Medicine; Emergency Provider Student in an Organized Health Care Education/Training Program; PCP Student in an Organized Health Care Education/Training Program; Visit Provider Family Medicine
DX: E22.2 Syndrome of inappropriate secretion of antidiuretic hormone (principal); U07.1 COVID-19; E87.20 Acidosis, unspecified; T37.5X5A Adverse effect of antiviral drugs, initial encounter; E87.6 Hypokalemia; I10 Essential (primary) hypertension; E87.8 Other disorders of electrolyte and fluid balance, not elsewhere classified; E83.51 Hypocalcemia; Z96.642 Presence of left artificial hip joint; M54.42 Lumbago with sciatica, left side; E86.0 Dehydration
CPT/HCPCS: 36415; 36556; 36591; 80048; 80051; 80053; 82805; 83935; 96360; 96361; 96372; 97110; 97162; 97530; 99291; J1650; 70450; 71045; 81003; 81015; 82436; 83605; 83735; 83930; 84133; 84295; 84300; 85025; 99232; 99239; J2597; J3480

== ENCOUNTER 2023-07-07 19:25 | Outpatient (REF) | payer MEDICARE, SELFPAY ==
[2023-07-07 20:12] LABS: Anion Gap 9.3 mmol/L (3-11); BUN 24 mg/dL (7-18); CO2 25.7 mmol/L (21.0-32.0); CREATININE 0.6 mg/dL (0.55-1.02); Calcium 8.7 mg/dL (8.5-10.1); Chloride 101 mmol/L (98-107); Estimated GFR 89.01 (mL/min/1.73m2); Glucose 99 mg/dL (74-106); Potassium 4.8 mmol/L (3.5-5.1); Sodium 136 mmol/L (136-145)
[2023-07-08 15:18] LABS: Lab Add On Test DONE
[2023-07-08 15:30] LABS: Magnesium 2.2 mg/dL (1.8-2.4)
== END 2023-07-07 19:26 | disposition home or self-care (01) ==
LOC: LBN 19:25
PROVIDERS: PCP Student in an Organized Health Care Education/Training Program; Visit Provider Student in an Organized Health Care Education/Training Program
DX: I10 Essential (primary) hypertension (principal); E87.6 Hypokalemia; R79.89 Other specified abnormal findings of blood chemistry; Z86.39 Personal history of other endocrine, nutritional and metabolic disease
CPT/HCPCS: 80048; 83735

== ENCOUNTER → 2023-07-13 10:41 | Outpatient (BNVA) | payer MEDICARE, SELFPAY | PROVIDERS: PCP Student in an Organized Health Care Education/Training Program; Visit Provider Student in an Organized Health Care Education/Training Program | DX: Z47.1 Aftercare following joint replacement surgery (principal); Z96.642 Presence of left artificial hip joint ==

== ENCOUNTER → 2023-08-31 00:49 | Outpatient (CLI) | payer MEDICARE, SELFPAY ==
--- NOTE | 2023-08-31 06:00 | DI.DEXA_ITS ---
Exam(s) XR DEXA BONE DENSITY W/WO KHANH EXAM: XR DEXA BONE DENSITY W/WO KHANH CLINICAL HISTORY: eval osteopenia, screening for osteoporosis in postmenopausal woman,z78.0 TECHNIQUE: COMPARISON: DX XR DEXA BONE DENSITY W/WO KHANH from 04/16/2019 FINDINGS: Lateral Spine Image: Unremarkable. No compression deformities identified. Right hip: Total T-Score: -2.4. Total Z-Score: -0.1 T- and Z-scores: Findings are consistent with osteopenia. Lumbar Spine: Total T-Score: -1.8. This compares to -1.6 on the prior examination. Total Z-Score: 1.1 T- and Z-scores: Findings are consistent with osteopenia. IMPRESSION: No evidence of osteoporosis.
== END ==
PROVIDERS: PCP Student in an Organized Health Care Education/Training Program; Visit Provider Student in an Organized Health Care Education/Training Program
DX: Z13.820 Encounter for screening for osteoporosis (principal); Z78.0 Asymptomatic menopausal state
CPT/HCPCS: 77080

== ENCOUNTER 2024-02-20 04:50 | Outpatient (CLI) | payer MEDICARE, SELFPAY ==
[2024-02-20 10:55] LABS: Anion Gap 10.5 mmol/L (3-11); BUN 16 mg/dL (7-18); CO2 27.5 mmol/L (21.0-32.0); CREATININE 0.7 mg/dL (0.55-1.02); Calcium 8.7 mg/dL (8.5-10.1); Chloride 102 mmol/L (98-107); Estimated GFR 85.23 (mL/min/1.73m2); Ferritin 85 ng/mL (8-252); Glucose 104 mg/dL (74-106); Potassium 3.7 mmol/L (3.5-5.1); Sodium 140 mmol/L (136-145)
[2024-02-20 11:11] LABS: Iron 100 ug/dL (50-170); Total Iron Binding Capacity 268 ug/dL (250-450); Transferrin Sat 37 % (15-50)
[2024-02-20 11:34] LABS: Vitamin D 25 Total 38.5 ng/mL (30-100)
== END 2024-02-20 04:51 | disposition home or self-care (01) ==
PROVIDERS: PCP Student in an Organized Health Care Education/Training Program; Visit Provider Student in an Organized Health Care Education/Training Program
DX: R79.89 Other specified abnormal findings of blood chemistry; I10 Essential (primary) hypertension; Z91.89 Other specified personal risk factors, not elsewhere classified
CPT/HCPCS: 36415; 80048; 82306; 82728; 83540; 83550; 85018

== ENCOUNTER 2024-04-11 15:47 | Outpatient (CLI) | payer MEDICARE, SELFPAY ==
--- NOTE | 2024-04-11 13:15 | DI.RAD_ITS ---
Exam(s) XR HIP LT AP LAT ONLY EXAM: XR HIP LT AP LAT ONLY CLINICAL HISTORY: ANNUAL F/U L TEETEE. TECHNIQUE: 2D digital imaging was performed. COMPARISON: CR XR PELVIS AP from 03/23/2023 CR XR HIP LT COMPLETE AP PELVIS from 06/15/2023 FINDINGS: Left hip prosthesis is again noted which appears to be in satisfactory position alignment. No eviden ce of fracture or loosening. Dystrophic calcifications are again noted above the prosthesis level at and have somewhat increased when compared to May 2023. IMPRESSION: Able satisfactory appearance of the left hip prosthesis. Increased dystrophic calcification. DATA REPOSITORY: RADIATION DOSE DELIVERED:
== END 2024-04-11 15:48 | disposition home or self-care (01) ==
LOC: DIORS 15:47
PROVIDERS: PCP Student in an Organized Health Care Education/Training Program; Referring Provider Student in an Organized Health Care Education/Training Program; Visit Provider Student in an Organized Health Care Education/Training Program
DX: Z96.642 Presence of left artificial hip joint (principal); Z47.1 Aftercare following joint replacement surgery; M70.62 Trochanteric bursitis, left hip
CPT/HCPCS: 20610; J1010; 73502

== ENCOUNTER 2025-01-09 14:33 | Outpatient (REF) | payer MEDICARE, SELFPAY ==
[2025-01-09 22:02] LABS: HGB 14.1 g/dL (11.2-15.7); MCH 30.9 pg (27.0-33.0); MCHC 32.8 % (32.0-36.0); MCV 94 fL (80-95); MPV 11.1 fL (8.0-11.0); Platelet Count 249 10^3/uL (130-400); RBC 4.57 10^6/uL (3.93-5.22); RDW 12.9 % (11.7-14.6); RDW-SD 44.4 fL; WBC 6.78 10^3/uL (4.4-10.8)
[2025-01-09 22:36] LABS: ALT 29 U/L (14-59); AST 25 U/L (15-37); Albumin 4.1 g/dL (3.4-5.0); Alkaline Phosphatase 142 U/L (46-116); Anion Gap 5.8 mmol/L (3-11); BUN 17 mg/dL (7-18); CO2 30.2 mmol/L (21.0-32.0); CREATININE 0.7 mg/dL (0.55-1.02); Calcium 9.3 mg/dL (8.5-10.1); Chloride 103 mmol/L (98-107); Glucose 167 mg/dL (74-106); Potassium 4.1 mmol/L (3.5-5.1); Sodium 139 mmol/L (136-145); Total Protein 7.2 g/dL (6.4-8.2); Vitamin D 25 Total 32.4 ng/mL (30-100)
== END 2025-01-09 14:34 | disposition home or self-care (01) ==
LOC: NCHCN 14:33
PROVIDERS: Visit Provider Nurse Practitioner Family
DX: M81.0 Age-related osteoporosis without current pathological fracture (principal); I10 Essential (primary) hypertension
CPT/HCPCS: 80053; 82306; 85027

== ENCOUNTER → 2025-02-14 09:40 | Outpatient (BNVA) | payer MEDICARE, SELFPAY | PROVIDERS: PCP Nurse Practitioner Family; Referring Provider Nurse Practitioner Family; Visit Provider Physician Assistant | DX: M70.62 Trochanteric bursitis, left hip (principal) | CPT/HCPCS: 20610; J1010 ==

== ENCOUNTER 2025-02-21 00:38 | Outpatient (CLI) | payer MEDICARE, SELFPAY ==
--- NOTE | 2025-02-21 10:19 | DI.RAD_ITS ---
Exam(s) XR LUMBAR SPINE COMPLETE EXAM: XR LUMBAR SPINE COMPLETE CLINICAL HISTORY: SCIATICA LEFT SIDE M54.32. TECHNIQUE: 2D digital imaging was performed. COMPARISON: CR XR DEXA BONE DENSITY W/WO KHANH from 08/31/2023 FINDINGS: Five views There is rotoscoliosis convex right. No evidence obvious acute fracture nor listhesis. Multilevel disc space narrowing and degenerative f acet joint changes. Sacroiliac joints appear unremarkable. There is a left hip prosthesis. IMPRESSION: Multilevel chronic degenerative disc disease and degenerative scoliosis in the lumbar spine, convex r ight. No acute fractures evident. DATA REPOSITORY: RADIATION DOSE DELIVERED:
== END 2025-02-21 00:58 ==
LOC: DI 00:38
PROVIDERS: PCP Nurse Practitioner Family; Visit Provider Nurse Practitioner Family
DX: M54.32 Sciatica, left side (principal); M51.369 Other intervertebral disc degeneration, lumbar region without mention of lumbar back pain or lower extremity pain
CPT/HCPCS: 72110

== ENCOUNTER 2025-03-07 11:02 | Outpatient (CLI) | payer MEDICARE, SELFPAY ==
--- NOTE | 2025-03-07 14:26 | DI.RAD_ITS ---
Exam(s) XR ABDOMEN FLAT UPRIGHT EXAM: 2D digital imaging was performed. CLINICAL HISTORY: Abdominal distention (gaseous), R14.0; ? constipation. COMPARISON: CR,XR XR PORTABLE CHEST AP from 06/28/2023 CR XR LUMBAR SPINE COMPLETE from 02/21/2025 TECHNIQUE: Supine and uprightSupine and Lateral views of the abdomen were performed. FINDINGS: BOWEL GAS PATTERN: Nondistended.No free air. [id number] stool in the rectum. Little stool els ewhere. CALCIFICATIONS: No urinary tract calcifications. OSSEOUS STRUCTURES: Nor scoliosis and degenerative changes in the spine. Advanced degenerative walker es of the right hip. Left hip prosthesis. Visualized portions of chest: Unremarkable. Soft tissues: Unremarkable. IMPRESSION: 1. Nonobstructive bowel gas pattern. No evidence of constipation 2. No radiopaque calculi. 3. No free air. DATA REPOSITORY: RADIATION DOSE DELIVERED:
== END 2025-03-07 11:22 ==
LOC: DI 11:03
PROVIDERS: PCP Nurse Practitioner Family; Visit Provider Family Medicine
DX: R14.0 Abdominal distension (gaseous) (principal)
CPT/HCPCS: 74019